=== PATIENT | female | born 1990 | race Caucasian/White ===

== ENCOUNTER 2023-03-18 07:44 | Inpatient (IN) ==
[2023-03-18] MEDS ORDERED: LIDOCAINE 1% LOCAL 20 ML VIAL INFIL PRN (08:31)
[2023-03-18] MEDS ORDERED: OXYTOCIN 30 UNITS/500 ML BAG IV PRN (08:31)
[2023-03-18] MEDS ORDERED: PENICILLIN G POTASSIUM 6 MU in DEXTROSE 5% 250 ML IV STA (08:52)
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
[2023-03-18 09:42] LABS: Hematocrit (blood only) 31.7 % (37.0-47.0); Hemoglobin 10.9 g/dl (12.0-16.0); Mean Corpuscular Hemoglobin 28.8 pg (25.0-34.0); Mean Corpuscular Hgb Conc 34.4 g/dL (32.0-36.0); Mean Corpuscular Volume 83.6 fL (80.0-100.0); Mean Platelet Volume 11.2 fL (9.4-12.4); Platelet Count 223 K/uL (130-400); RDW Coefficient of Variation 12.5 % (11.5-14.5); RDW Standard Deviation 37.6 fL (36.4-46.3); Red Blood Count 3.79 M/uL (4.20-5.40); White Blood Count 15.27 K/ul (4.8-10.8)
[2023-03-18 09:54] LABS: Alanine Aminotransferase 9 U/L (7-52); Albumin Globulin Ratio 1.3 (0.9-2); Albumin Level 3.5 gm/dl (3.4-5.0); Alkaline Phosphatase 175 U/L (34-104); Anion Gap 8 (3-11); Aspartate Aminotransferase 16 U/L (13-39); BUN Creatinine Ratio 15.6 (10-20); Bilirubin,Total 0.4 mg/dl (0.2-1.0); Blood Urea Nitrogen 7 mg/dl (6-23); Carbon Dioxide 24 mmol/L (21-32); Chloride 104 mmol/L (98-107); Creatinine Clr Calc Pharmacy 191.9 ml/min; Est GFR (African American) > 150.0 ml/min; Est GFR (Non-African American) 131.7 ml/min; Globulin 2.8 gm/dl (2.5-4.0); Glucose 91 mg/dl (70-99(Fasting)); Potassium 3.8 mmol/L (3.5-5.1); Sodium 136 mmol/L (136-145); Total Protein 6.3 gm/dl (6.0-8.3)
[2023-03-18] MEDS: miSOPROStoL 25 MCG TAB SL SCH ×3 (09:55→21:05)
[2023-03-18] MEDS: LACTATED RINGER'S 1,000 ML IV PRN (09:55)
[2023-03-18] MEDS: buprenorphine HCL 2 MG SUBL SL SCH ×3 (12:32→21:03)
[2023-03-18] MEDS: PENICILLIN G POTASSIUM 3 MU in DEXTROSE 5% 100 ML IV PRN ×3 (14:17→23:16)
[2023-03-18] MEDS ORDERED: BUTORPHANOL TARTRATE 1 MG/ML VIAL IV PRN (14:31)
[2023-03-18] MEDS ORDERED: ONDANSETRON INJ 2 MG/ML 2 ML VIAL IV PRN (14:31)
[2023-03-18] MEDS ORDERED: CALCIUM CARBONATE 500 MG CHEWABLE TAB PO PRN (14:31)
--- NOTE | 2023-03-18 18:54 | Obstetrical Progress Note ---
Date of Service March 18, 2023 Assessment & Plan Admission and Anticipated Discharge Date Admission Date: March 18, 2023 Subjective Patient is reevaluated She is talking to her family through facetime, and smiling Contractions are somewhat painful but does not need pain meds No LOF/VB +FM FRH categ I VE; cervix 1/ 50%/-3 Received 2 doses of Cytotec She is hungry and desires to eat Continue to monitor Results & Data Vital Signs (Past 12 Hours) Vital Signs Temp Pulse Resp BP 03/18/23 08:03 36.8 C 20 03/18/23 17:59 36.8 C 61 20 03/18/23 17:59 109/64 03/18/23 16:22 20 03/18/23 16:22 36.8 C 20 03/18/23 16:22 60 03/18/23 16:22 108/69 03/18/23 12:24 36.4 C L 78 20 03/18/23 12:24 113/64 03/18/23 09:53 78 03/18/23 09:53 115/70 03/18/23 08:01 113 H 127/84
[2023-03-19] MEDS ORDERED: OXYTOCIN 30 UNITS/500 ML BAG IV PRN ×2 (01:27→11:00)
--- NOTE | 2023-03-19 01:32 | Obstetrical Progress Note ---
Date of Service March 19, 2023 Assessment & Plan Admission and Anticipated Discharge Date Admission Date: March 18, 2023 Subjective Patient is reevaluated She has received 3 doses of SL Cytotec, and due for 4th dose. Still has mild irregular contractions, no LOF/VB +FM's She has been taking 2 mg SL Subutex q 6 hours FHR categ I [place] ctx 2 6-7 min, palpated mild Discussed continuing IOL with either PO Cytotec or Vaginal Cervidil or Esparza balloon with IV Oxytocin Discussed what to expect for each. After long discussion she decided to go with Esparza balloon and Oxytocin Speculum was placed in vagina, cervix was visualized and cleaned with Betadine sticks, Esparza was inserted into cervical os and inflated with 40 ml of sterile water, applied with medial tight with tension Patient tolerated the procedure well Oxytocin per protocol Continue to monitor closely Results & Data Vital Signs (Past 12 Hours) Vital Signs Temp Pulse Resp BP O2 Del Method 03/18/23 19:05 20 03/18/23 19:05 Room Air 03/18/23 23:15 18 03/18/23 23:15 36.8 C 18 03/18/23 23:15 65 03/18/23 23:15 107/65 03/18/23 19:29 18 03/18/23 19:29 36.6 C 18 03/18/23 19:30 81 03/18/23 19:30 96/57 L 03/18/23 17:59 36.8 C 61 20 03/18/23 17:59 109/64 03/18/23 16:22 20 03/18/23 16:22 36.8 C 20 03/18/23 16:22 60 03/18/23 16:22 108/69
[2023-03-19] MEDS: LACTATED RINGER'S 1,000 ML IV PRN ×2 (02:35→07:14)
[2023-03-19] MEDS ORDERED: ePHEDrine sulfate 50 MG/ML AMP ONE ×2 (02:39→08:48)
[2023-03-19] MEDS ORDERED: SODIUM CHLORIDE 0.9% PF INJ 10 ML VIAL ONE ×2 (02:39→08:48)
[2023-03-19] MEDS ORDERED: BUPIVACAINE 0.25% PF 30 ML VIAL ONE ×2 (02:39→08:48)
[2023-03-19] MEDS ORDERED: LIDOCAINE 2%/EPINEPHRINE 1:200,000 20 ML PF ONE ×2 (02:39→08:49)
[2023-03-19] MEDS ORDERED: fentaNYL citrate PF 100 MCG/2 ML VIAL ONE ×2 (02:39→08:48)
[2023-03-19] MEDS ORDERED: fentaNYL 2MCG/ML ROPIVACAINE 1.25MG/ML 100 ML BAG EPI ONE (02:40)
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
[2023-03-19] MEDS: PENICILLIN G POTASSIUM 3 MU in DEXTROSE 5% 100 ML IV PRN ×2 (03:03→07:08)
[2023-03-19] MEDS ORDERED: ONDANSETRON INJ 2 MG/ML 2 ML VIAL IV PRN (03:24)
[2023-03-19] MEDS ORDERED: ePHEDrine sulfate 50 MG/ML AMP IV PRN (03:24)
[2023-03-19] MEDS ORDERED: fentaNYL 2MCG/ML ROPIVACAINE 1.25MG/ML 100 ML BAG EPI PRN (03:24)
[2023-03-19] MEDS ORDERED: NALOXONE HCL 0.4 MG/1 ML VIAL/CARP IV PRN (03:24)
[2023-03-19] MEDS ORDERED: NALOXONE HCL 1 MG in SODIUM CHLORIDE 0.9% 1000ML 1,000 ML IV PRN (03:24)
--- NOTE | 2023-03-19 03:47 | Obstetrical Progress Note ---
Date of Service March 19, 2023 Assessment & Plan Admission and Anticipated Discharge Date Admission Date: March 18, 2023 Subjective Patient got painful and asked for epidural FHR categ I Contractions q2-3 min, pitocin is at 4 miu/min Continue to monitor closely. Results & Data Vital Signs (Past 12 Hours) Vital Signs Temp Pulse Resp BP Pulse Ox O2 Del Method 03/18/23 19:05 20 03/18/23 19:05 Room Air 03/19/23 03:43 71 107/64 03/19/23 03:42 73 97 03/19/23 03:39 69 105/60 03/19/23 03:37 75 97 03/19/23 03:32 98 03/19/23 03:32 72 03/19/23 03:32 78 102/68 03/19/23 03:30 67 100/67 03/19/23 03:28 68 98/66 L 03/19/23 03:27 71 98 03/19/23 03:26 69 102/71 03/19/23 03:24 67 101/72 03/19/23 03:22 68 107/67 100 03/19/23 03:17 85 99 03/19/23 03:12 82 100 03/19/23 03:07 73 93 03/19/23 03:08 73 91 03/19/23 01:55 36.6 C 70 18 104/64 03/18/23 23:15 18 03/18/23 23:15 36.8 C 18 03/18/23 23:15 65 03/18/23 23:15 107/65 03/18/23 19:29 18 03/18/23 19:29 36.6 C 18 03/18/23 19:30 81 03/18/23 19:30 96/57 L 03/18/23 17:59 36.8 C 61 20 03/18/23 17:59 109/64 03/18/23 16:22 20 03/18/23 16:22 36.8 C 20 03/18/23 16:22 60 03/18/23 16:22 108/69
[2023-03-19] MEDS: buprenorphine HCL 2 MG SUBL SL SCH ×4 (08:00→21:34)
[2023-03-19] MEDS ORDERED: NURSING L&D Epidural Breakthrough Pain Update ONE (08:16)
[2023-03-19] MEDS ORDERED: Nursing to Pharmacy Communication SCH (08:30)
--- NOTE | 2023-03-19 09:22 | Communication Note ---
Date of Service: March 19, 2023 asked to reevaluate the patient because of ten out of 10 sharp pain on both sides originating from the back. Pt is only 4 cm. I decided that it is best to replace the epidural because of her early stage labor. Pt has received her buprenorphine. sterile prep/drape/mask gloves. landmark l3/l4 identified. 1.5% lido w/ epi infiltrated 17 gauge touey advanced to WOODY at 6cm. easy catheter thread to 11 cm. neg aspiration. test dose of 2% lido with epi 4cc. neg IV/IT. catheter secured. bolus 100cc fentanyl and 4cc 0.25% bupivicaine. pt comfortable. vss. see nursing record
--- NOTE | 2023-03-19 10:06 | Labor Progress Brief Note ---
Date of Service March 19, 2023 Assessment & Plan Admission and Anticipated Discharge Date Admission Date: March 18, 2023 Physical Exam Genitourinary: Manual OB Exam: + cervical dilation 10 cm, + cervical effacement 100%, + station + 1 and + amniotic fluid clear OB Exam Monitor Tracing: + external FHT monitor used, + external uterine monitor used, + category I and + normal FHT variability will start to push Results & Data Vital Signs (Past 12 Hours) Vital Signs Temp Pulse Resp BP Pulse Ox 03/19/23 07:25 36.8 C 20 03/19/23 10:02 108 H 98 03/19/23 09:57 92 H 97 03/19/23 09:52 89 98 03/19/23 09:51 80 110/66 03/19/23 09:47 81 98 03/19/23 09:42 89 98 03/19/23 09:37 95 H 98 03/19/23 09:33 90 96/56 L 03/19/23 09:32 80 97 03/19/23 09:31 88 96/59 L 03/19/23 09:29 93 H 20 97/57 L 03/19/23 09:27 84 99 03/19/23 09:28 80 103/59 L 03/19/23 09:26 81 103/58 L 03/19/23 09:23 88 03/19/23 09:23 106/60 03/19/23 09:22 90 03/19/23 09:22 83 03/19/23 09:23 78 109/11 L 03/19/23 09:22 94 H 87 L 03/19/23 09:20 100 H 109/70 03/19/23 09:17 73 110/65 98 03/19/23 09:16 76 111/68 03/19/23 09:13 81 111/71 03/19/23 09:12 86 100 03/19/23 09:09 78 114/71 03/19/23 09:07 87 100 03/19/23 08:59 20 03/19/23 08:59 20 03/19/23 09:02 86 97 03/19/23 08:57 69 97 03/19/23 08:54 86 102/67 03/19/23 08:52 87 97 03/19/23 08:47 78 97 03/19/23 08:42 81 97 03/19/23 08:41 70 102/66 03/19/23 08:37 89 98 03/19/23 08:32 71 97 03/19/23 08:29 20 03/19/23 08:29 20 03/19/23 08:27 72 98 03/19/23 08:25 75 105/69 03/19/23 08:22 68 97 03/19/23 07:59 18 03/19/23 07:59 18 03/19/23 08:17 75 98 03/19/23 08:12 73 98 03/19/23 08:11 74 104/64 03/19/23 08:07 80 100 03/19/23 08:02 83 95 03/19/23 07:57 78 100 03/19/23 07:52 80 99 03/19/23 07:47 79 98 03/19/23 07:42 81 97 03/19/23 07:37 69 98 03/19/23 07:29 20 03/19/23 07:29 20 03/19/23 07:32 70 98 03/19/23 07:27 71 97 03/19/23 07:25 67 101/61 03/19/23 07:22 69 97 03/19/23 07:17 77 100 03/19/23 07:12 86 94 03/19/23 06:30 16 03/19/23 06:30 16 03/19/23 07:10 81 107/65 03/19/23 07:00 16 03/19/23 07:00 16 03/19/23 07:07 90 98 03/19/23 07:02 81 97 03/19/23 06:57 81 98 03/19/23 06:54 74 106/60 03/19/23 06:52 73 97 03/19/23 06:47 68 98 03/19/23 06:42 102 H 96 03/19/23 06:40 75 101/55 L 03/19/23 06:37 76 96 03/19/23 06:32 74 96 03/19/23 06:27 77 96 03/19/23 06:25 78 98/54 L 03/19/23 06:22 79 96 03/19/23 06:17 76 97 03/19/23 06:12 78 96 03/19/23 06:10 76 99/57 L 03/19/23 06:07 72 96 03/19/23 06:00 18 03/19/23 06:00 18 03/19/23 06:02 80 97 03/19/23 05:30 16 03/19/23 05:30 16 03/19/23 05:57 73 96 03/19/23 05:54 75 99/58 L 03/19/23 05:52 79 97 03/19/23 05:47 76 97 03/19/23 05:42 73 96 03/19/23 05:40 76 98/54 L 03/19/23 05:37 75 97 03/19/23 05:32 81 97 03/19/23 05:27 77 96 03/19/23 05:24 86 99/63 L 03/19/23 05:22 82 97 03/19/23 05:17 81 97 03/19/23 05:12 85 97 03/19/23 05:09 71 99/63 L 03/19/23 05:00 16 03/19/23 05:00 36.9 C 16 03/19/23 05:07 77 97 03/19/23 05:02 67 98 03/19/23 04:57 69 98 03/19/23 04:55 64 104/72 03/19/23 04:52 64 98 03/19/23 04:47 72 97 03/19/23 04:42 69 98 03/19/23 04:39 81 115/75 03/19/23 04:37 70 96 03/19/23 04:30 16 03/19/23 04:30 16 03/19/23 04:32 61 98 03/19/23 04:27 64 96 03/19/23 04:24 80 102/65 03/19/23 04:22 68 96 03/19/23 04:17 66 96 03/19/23 04:12 73 97 03/19/23 04:07 78 97 03/19/23 04:08 77 105/69 03/19/23 04:05 64 108/66 03/19/23 04:02 68 96 03/19/23 03:59 71 101/62 03/19/23 03:57 63 96 03/19/23 03:53 69 103/63 03/19/23 03:52 72 97 03/19/23 03:47 77 96 03/19/23 03:48 70 107/63 03/19/23 03:43 71 107/64 03/19/23 03:42 73 97 03/19/23 03:39 69 105/60 03/19/23 03:37 75 97 03/19/23 03:32 98 03/19/23 03:32 72 03/19/23 03:32 78 102/68 03/19/23 03:30 67 100/67 03/19/23 03:28 68 98/66 L 03/19/23 03:27 71 98 03/19/23 03:26 69 102/71 03/19/23 03:24 67 101/72 03/19/23 03:22 68 107/67 100 03/19/23 03:17 85 99 03/19/23 03:12 82 100 03/19/23 03:07 73 93 03/19/23 03:08 73 91 03/19/23 01:55 36.6 C 70 18 104/64 03/18/23 23:15 18 03/18/23 23:15 36.8 C 18 03/18/23 23:15 65 03/18/23 23:15 107/65
--- NOTE | 2023-03-19 10:49 | Delivery Summary ---
Vaginal Delivery Summary Date of Service March 19, 2023 Vaginal Delivery Summary Delivery Note live female GAVIN over intact perineum with delayed cord clamping and nuchal cord x2 reduced at time of delivery of head. Apgars 7/8 weight pending. Cord blood obtained followed by spontaneous delivery of intact placenta with 3VC. No tears. EBL 100 ml. Final sponge and instrument count are correct. Mom and baby stable.
[2023-03-19] MEDS ORDERED: BENZOCAINE 20% AER SPR 82.5 GM CAN EXT PRN (11:00)
[2023-03-19] MEDS ORDERED: bisacodyL 10 MG SUPP PR PRN (11:00)
[2023-03-19] MEDS ORDERED: HYDROCORTISONE ACETATE 25 MG SUPP PR PRN (11:00)
[2023-03-19] MEDS ORDERED: DIPHTHERIA/TETANUS/PERTUSSIS 0.5mL SYR/VIAL (Age 7+yrs) IM ONE (11:00)
--- NOTE | 2023-03-19 12:13 | Anesthesia Procedure Note ---
Date of Service March 19, 2023 Anesthesia Post Epidural Note Vital Signs Vital Signs: Temp Pulse Resp BP Pulse Ox O2 Del Method 36.8 C 81 20 102/63 98 Room Air 03/19/23 07:25 03/19/23 12:12 03/19/23 11:27 03/19/23 12:12 03/19/23 10:47 03/18/23 19:05 Pain Intensity Left Abdomen: Pain Intensity: 0 Notes Mental Status: alert / awake / arousable and participated in evaluation Nausea / Vomiting: adequately controlled Pain: adequately controlled Airway Patency, RR, SpO2: stable & adequate BP & HR: stable & adequate Hydration State: stable & adequate Neuraxial Anesthesia: was administered and sensory block is resolving Anesthetic Complications: no major complications apparent and Pt Satisfied with anesthetic care Epidural: Removed without complications and With tip intact
[2023-03-19] MEDS: IBUPROFEN 600 MG TAB PO PRN ×2 (14:38→19:11)
[2023-03-19] MEDS: ACETAMINOPHEN 325 MG TAB PO PRN ×2 (15:16→23:25)
[2023-03-19] MEDS: DOCUSATE SODIUM 100 MG CAP PO SCH (21:34)
[2023-03-20] MEDS: IBUPROFEN 600 MG TAB PO PRN ×5 (02:43→20:51)
[2023-03-20 07:57] LABS: Hematocrit (blood only) 32.8 % (37.0-47.0); Hemoglobin 11.1 g/dl (12.0-16.0); Mean Corpuscular Hemoglobin 28.7 pg (25.0-34.0); Mean Corpuscular Hgb Conc 33.8 g/dL (32.0-36.0); Mean Corpuscular Volume 84.8 fL (80.0-100.0); Mean Platelet Volume 11.1 fL (9.4-12.4); Platelet Count 210 K/uL (130-400); RDW Coefficient of Variation 12.5 % (11.5-14.5); RDW Standard Deviation 37.7 fL (36.4-46.3); Red Blood Count 3.87 M/uL (4.20-5.40); White Blood Count 19.43 K/ul (4.8-10.8)
[2023-03-20] MEDS: buprenorphine HCL 2 MG SUBL SL SCH ×4 (08:07→20:37)
[2023-03-20] MEDS: FERROUS SULFATE 325 MG TAB PO SCH (08:07)
[2023-03-20] MEDS: DOCUSATE SODIUM 100 MG CAP PO SCH ×2 (08:07→20:52)
[2023-03-20] MEDS: PRENATAL VITAMIN 1 TAB PO SCH (08:07)
[2023-03-20] MEDS ORDERED: buprenorphine HCL 8 MG SUBL SL SCH (09:00)
[2023-03-20] MEDS ORDERED: NON-FORMULARY MEDICATION (Prenat.Vits,Cal,Min-Iron-Folic Tablet) PO SCH (09:00)
--- NOTE | 2023-03-20 09:28 | Obstetrical Progress Note ---
Date of Service March 20, 2023 Assessment & Plan (1) Normal course: PPD #1 s/p Subutex pt doing well Anticipate disch tomorrow Subjective Ambulation: ambulating normally Voiding: no voiding problems Passing Gas:: Yes Diet Tolerance:: regular diet Lochia:: Small Feeding Type:: breast feeding Review of Systems All systems reviewed & are unremarkable except as noted in HPI & below Physical Exam Constitutional WD/WN, vitals as above well developed and well nourished Eyes PERRL, conjunctivae normal, anicteric sclerae Neck trachea midline, no thyromegaly Respiratory normal respiratory effort, lungs clear to auscultation Auscultation: no crackles, no rales and no wheezes Cardiovascular RRR, no murmur, no edema Gastrointestinal (Abdomen) normal bowel sounds, soft, nontender, no hepatosplenomegaly Uterus is below umbilicus Musculoskeletal no cyanosis or clubbing, extremities motor strength 5/5 Skin no rashes, warm and dry Neurologic patellar DTR's 2+ bilat, sensation intact Psychiatric A+Ox3, euthymic affect Genitourinary normal external appearance Results & Data Vital Signs (Past 12 Hours) Vital Signs Temp Pulse Resp BP O2 Del Method 03/20/23 07:45 36.4 C L 66 18 101/64 Room Air 03/20/23 03:35 36.9 C 75 18 98/63 L 03/19/23 23:50 36.4 C L 62 18 102/65
[2023-03-20] MEDS: ACETAMINOPHEN 325 MG TAB PO PRN ×2 (11:45→20:51)
[2023-03-20] MEDS ORDERED: bisacodyL 5 MG TABEC PO SCH (20:00)
[2023-03-21] MEDS: IBUPROFEN 600 MG TAB PO PRN ×4 (00:32→16:10)
[2023-03-21] MEDS: ACETAMINOPHEN 325 MG TAB PO PRN (02:49)
[2023-03-21] MEDS: FERROUS SULFATE 325 MG TAB PO SCH (08:02)
[2023-03-21] MEDS: buprenorphine HCL 2 MG SUBL SL SCH ×3 (08:02→16:07)
[2023-03-21] MEDS: PRENATAL VITAMIN 1 TAB PO SCH (08:02)
[2023-03-21] MEDS: DOCUSATE SODIUM 100 MG CAP PO SCH (08:02)
[2023-03-21 09:32] LABS: Hematocrit (blood only) 33.2 % (37.0-47.0); Hemoglobin 11.1 g/dl (12.0-16.0)
--- NOTE | 2023-03-21 10:04 | Obstetrical Progress Note ---
Date of Service March 21, 2023 Assessment & Plan (1) Normal course: PPD #2 pt doing well d/c home with instructions Results & Data Vital Signs (Past 12 Hours) Vital Signs Temp Pulse Resp BP Pulse Ox O2 Del Method 03/21/23 08:45 36.5 C 81 18 102/70 97 Room Air 03/21/23 00:30 36.4 C L 79 18 111/74 98 Room Air
== END 2023-03-21 17:35 | disposition home or self-care (01) | DRG 806 ==
LOC: 4S1 07:44 → 4E2 03-19 15:10

== ENCOUNTER 2024-05-08 07:56 | Inpatient (IN) ==
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
--- OUTSIDE RECORDS SUMMARY | 2024-05-08 08:05 | External Medical Summary | Summary of Care ---
Author Name Unknown Organization [facility] Address [address] [place] [address] Phone [phone] Care Team Providers Care Cnc Mechanic Name Role Phone Unavailable Primary Care Provider Unavailabl e Encounter Details Date Type Department Care Team (Late st Contact Info) Description 04/28/2024 Orders Only Pharmacy, [employer] [address], [place] [id number] Ann Marie Allen, [facility] [address] [place] [address] Allergies No known active allergiesdocumented as of this encounter (statuses as of 05/03/2024) Medications Medication Sig Dispensed Refills Start Date [...] at bedtime. 30 Tablet 5 03/07/2024 Active documented as of this encounter (statuses as of 05/03/2024) Active Problems Problem Noted Date Diagnosed Date [...] Medicine- pt to call them. 02/25/2024 Uzma Burris RN 02/25/2024 Lack of housing- has to [...] or questions 04/28/2024 Radha Blake RN 04/28/2024 Antepartum anemia complicating 024 Overview: Hgb 11.0 at 28 wks Referral for IV iron placed, pt agreeable per OB protocol. 03/07 - Patient still has not taken PO iron or seen BM. Able to chart picker prescription at this time. Will recheck levels [...] as of this encounter (statuses as of 05/03/2024) Resolved Problems Problem Noted Date Diagnosed Date [...] sub utex maintenance, antepartum 09/01/2022 02/25/2024 Overview: [facility] Last Assessment & Plan: Briefly reviewed subutex risks including FGR and ANTONETTE. Cameron desires to participate in Eat, Sleep, Console if able and will evaluate distance from her home to [facility]. Also advised that she enquire at the OB office whether something similar is available at [facility] where she initially intended to deliver (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 Tobacco use complicating 09/01/2022 02/25/2024 documented as of this encounter (statuses as of 05/03/2024) Immunizations Name Administration Dates Next Due TDAP [...] money to get more. Never true 01/26/2024 [place] Depression Scale Answer Date Recorded [place] Depression Scale Total 4 04/21/2024 The thought [...] Care Team (Late st Contact Info) Description 05/04/2024 8:00 AM EDT Pharmacy Pharmacy, [employer] [address] [place] [address] Clinic, [place] [address] [place] [address] 05/04/2024 10:30 AM EDT Office Visit Gynecology/Obstetric s Duncan Murphy [address] [facility] [place] [address] Backer, MARY Vázquez [address] [place] [address] Nurse [facility] [address] [place] [address] 05/04/2024 1:30 PM EDT Hem/Onc Treatment Hematology/Oncology [address], [address] [phone] Fatuma, Chair 8 Hem Onc [address] [address] 05/05/2024 2:00 PM EDT Hem/Onc Treatment Hematology/Oncology [address], [address] [phone] Fatuma, Chair 9 Hem Onc [place] [address] [place] [address] 05/30/2024 9:45 AM EDT Telemedicine Gynecology/Obstetric [facility] [address] [place] [facility] [place] [address] Paz Michelle PA-C [address] [place] [address] [place] [address] 06/19/2024 10:30 AM EDT Office Visit Gynecology/Obstetric [facility] [address] [place] [address] Joanne Arambula CRNP [address] [place] [address] Health Maintenance Due Date Last Done Comments [...]
--- OUTSIDE RECORDS SUMMARY | 2024-05-08 08:05 | External Medical Summary | Summary of Care ---
Author Name Unknown Organization [facility] Address [address] [place] [address] Phone [phone] Care Team Providers Care Planimeter Operator Name Role Phone Unavailable Primary Care Provider Unavailabl e Reason for Visit * Reason Comments IV Therapy Venofer Encounter Details Date Type Department Care Team (Latest Contact Info) Description 05/03/2024 9:15 AM EDT Hem/Onc Treatment Hematology/Oncology Treatment, [place] [address] [place] [address] Fatuma, Chair 8 Hem Onc [facility] [address] [place] [address] Iron deficiency anemia, unspecified iron deficiency anemia type* Allergies No known active allergiesdocumented as of [...] PO iron or seen BM. Able to pharmacy picking tech prescription at this time. Will recheck levels [...] will evaluate distance from her home to [facility]. Also advised that she enquire at the OB office whether something similar is available at [facility] where she initially intended to deliver (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 Tobacco use complicating 09/01/2022 02/25/2024 documented as of this encounter (statuses as of 05/03/2024) Immunizations Name Administration Dates Next Due TDAP (age 10 and older)(Boostrix) 01/01/2023 documented as of this encounter Social History Tobacco Use Types Packs/Day Years Used Date Smoking Tobacco: Every Day Smokeless Tobacco: Never Tobacco Cessation:Ready to Q uit: Not Asked; Counseling Given: Not Answered Alcohol Use Standard Drinks/Week Comments Not Currently [...] money to get more. Never true 01/26/2024 [place] Depression Scale Answer Date Recorded [place] Depression Scale Total 4 04/21/2024 The thought [...] on file documented as of this encounter Last Filed Vital Signs Vital Sign Reading Time Taken Comments Blood Pressure 113/74 05/03/2024 10:13 AM EDT Pulse 85 05/03/2024 10:13 AM EDT Temperature 36.9 C (98.4 F) 05/03/2024 10:13 AM E DT Respiratory Rate 16 05/03/2024 10:13 AM EDT Oxygen Saturation 95% 05/03/2024 10:13 AM EDT Inhaled Oxygen Concentration - - Weight - - Height - - Body Mass Index - - documented in this encounter Nursing Notes * Uzma Avila LPN - 05/03/2024 12:09 PM EDT 1145: Pt tolerated Venofer infusion well. PIV removed intact. Pt to return to clinic tomorrow. Discharged in stable condition. * Shavonne Caban LPN - 05/03/2024 10:13 AM EDT Patient arrived Chair 1 for IV therapy Venofer. Vital signs are stable. IV access successful at theleft cephalic vein. IV line flushed with ease; IV fluids connected and infusing. Call grigsby within reach. documented in this encounter Plan of Treatment Upcoming Encounters Date Type Department Care Team (Late st Contact Info) Description 05/04/2024 10:30 AM EDT Office Visit Gynecology/Obstetric s Duncan Murphy [address] [place] [address] Backer, MARY Vázquez [address] [place] [address] Nurse [facility] [address] [place] [address] 05/04/2024 1:30 PM EDT Hem/Onc Treatment Hematology/Oncology Treatment, [address] [place] [phone] Fatuma, Chair 8 Hem Onc [address] [place] [address] [place] [address] 05/05/2024 2:00 PM EDT Hem/Onc Treatment Hematology/Oncology Treatment, [address], [place] [phone] Fatuma, Chair 9 Hem Onc [address] [place], [place] [address] [address] 05/30/2024 9:45 AM EDT Telemedicine Gynecology/Obstetric s Duncan Murphy [address] [place] [address] Paz Michelle PA-C [address] [place] [address] [place] [address] 06/19/2024 10:30 AM EDT Office Visit Gynecology/Obstetric s Duncan Murphy [address] [place] [address] Backer, JoanneMARY Llanos [address] [place] [address] Health Maintenance Due Date Last Done Comments [...] Not on filedocumented as of this encounter Visit Diagnoses Diagnosis Iron deficiency anemia, unspecified iron deficiency anemia type- Primary documented in this encounter Administered Medications Active Administered Medications - up to 3 most recent administrations Medication Order MAR Action Action Date Dose Rate Site diphenhydrAMINE (Benadryl) inj 50 mg 50 mg, IV Push, ONCE PRN Other, Hypersensitivity Reaction, Starting on 05/03/24 at 0951, Until Diane 05/04/24 at 0950, For 24 hours EPINEPHrine 1 MG/ML inj 0.3 mg 0.3 mg, Intramuscular, ONCE PRN Other, Hypersensitivity Reaction or Anaphylaxis, Starting on 05/03/24 at 0951, Until Diane 05/04/24 at 0950, For 24 hours hEParin 100 UNIT/ML Lock Flush inj 500 Units 500 Units (5 mL), IV Lock, PRN Other, IV Flush, Starting on Wed05/03/24 at 0951, Until Diane 05/04/24 at 0950, For 24 hours, Do not flush if lock, PICC, or central line not in place; IV infusing or unable to flush. Hydrocortisone Sod Suc (PF) (Solu-Cortef) inj 100 mg 100 mg, IV Push, ONCE PRN Other, Hypersensitivity Reaction, Starting on Wed05/03/24 at 0951, Until Diane 05/04/24 at 0950, For 24 hours NSS infusion 500 mL, Intravenous, at 50 mL/hr, CONTINUOUS, Starting on Wed05/03/24 at 1100, Until Wed05/03/24 at 2059 Start Infusion 05/03/2024 10:03 AM EDT 500 mL 50 mL/hr oxygen GAS Inhalation, OXYGEN, First dose on Wed05/03/24 at 1030, Until Discontinued, Device/Managed by: Low Flow Device, Goal SPO2 (%): 91-95, Starting Device: Nasal Cannula, Initial Flow Rate (LPM): 2, Lowest Support: Nasal Cannula: Flow 0-6 LPM. Titrate up/down by 1 LPM., Higher Support: Non-Rebreather (NRB) Mask: Minimum of 10 LPM. Titrate to maintain bag inflation., Titration Interval: Q2 minutes and as needed., Notify Provider: For sudden DECREASE in resting SPO2 to less than 85% and when escalating delivery device., Wean patient off Oxygen when the oxygen saturation is greater than or equal to 93% sodium chloride 0.9 % flush central line 10 mL 10 mL, IV Push, PRN Other, IV Flush, Starting on Wed05/03/24 at 0951, Until Diane 05/04/24 at 0950, For 24 hours, Do not flush if lock, PICC, or central line not in place; IV infusing or unable to flush. Inactive Administered Medications - up to 3 most recent administrations Medication Order MAR Action Action Date Dose Rate Site Iron Sucrose (Venofer) 300 mg in NSS 250 mL ivpb 300 mg, IV Piggyback, ONCE, 1 dose, On Wed05/03/24 at 1130, Administer over 90 Minutes Start Infusion 05/03/2024 10:11 AM EDT 300 mg 180 mL/hr documented in this encounter
--- OUTSIDE RECORDS SUMMARY | 2024-05-08 08:05 | External Medical Summary | Summary of Care ---
Author Name Unknown Organization [facility] Address [address] [place] [address] Phone [phone] Care Team Providers Care Allocations Clerk Name Role Phone Unavailable Primary Care Provider Unavailabl e Reason for Visit * Reason Onset Date Comments No Show 05/04/2024 Encounter Details Date Type Department Care Team (Late st Contact Info) Description 05/04/2024 Telephone Gynecology/Obstetrics [facility] [address] [facility] [place] [address] Donna Ochoa MD [address] [facility] [place] [address] No Show Allergies No known active allergiesdocumented as of this encounter (statuses as of 05/04/2024) Medications Medication Sig Dispensed Refills Start Date [...] as of this encounter (statuses as of 05/04/2024) Active Problems Problem Noted Date Diagnosed Date [...] PO iron or seen BM. Able to apple picking supervisor prescription at this time. Will recheck levels [...] as of this encounter (statuses as of 05/04/2024) Resolved Problems Problem Noted Date Diagnosed Date [...] sub utex maintenance, antepartum 09/01/2022 02/25/2024 [facility] Last Assessment & Plan: Briefly reviewed subutex risks including FGR and ANTONETTE. Cameron desires to participate in Eat, Sleep, Console if able and will evaluate distance from her home to [place]. Also advised that she enquire at the OB office whether something similar is available at [facility] where she initially intended to deliver (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 Tobacco use complicating 09/01/2022 02/25/2024 documented as of this encounter (statuses as of 05/04/2024) Immunizations Name Administration Dates Next Due TDAP [...] money to get more. Never true 01/26/2024 [place] Depression Scale Answer Date Recorded [place] Depression Scale Total 4 04/21/2024 The thought [...] on file documented as of this encounter Miscellaneous Notes * Telephone Encounter - Chantale Sánchez OSA - 05/04/2024 2:57 PM EDT The number in chart is unava So my g sent * Telephone Encounter - Uzma Avila LPN - 05/04/2024 2:46 PM EDT Pt did not show for Venofer infusion again. Pt is to have her baby in a few days and needs to have the iron prior to arrival. Scheduling: Can you please reach out to see if patient would like to reschedule? Thank you. NS: AZAEL. Please adjust beacon. documented in this encounter Plan of Treatment Upcoming Encounters Date Type Department Care Team (Late st Contact Info) Description 05/05/2024 2:00 PM EDT Hem/Onc Treatment Hematology/Oncology Treatment, [place] [address] [place] [address] Fatuma, Chair 9 Hem Onc [place] [address] [place] [address] 05/30/2024 9:45 AM EDT Telemedicine Gynecology/Obstetrics [facility] [address] [place] [address] Paz Michelle PA-C [address] [facility] [place] [address] 06/19/2024 10:30 AM EDT Office Visit Gynecology/Obstetrics [facility] [address] [place] [address] Joanne Arambula CRNP [address] [place] [address] Health Maintenance Due Date Last Done Comments [...]
--- OUTSIDE RECORDS SUMMARY | 2024-05-08 08:05 | External Medical Summary | Summary of Care ---
Author Name Unknown Organization [facility] Address [address] [place] [address] Phone [phone] Care Team Providers Care Machine Slat Basket Maker Name Role Phone Unavailable Primary Care Provider Unavailabl e Encounter Details Date Type Department Care Team (Late st Contact Info) Description 04/28/2024 Orders Only Pharmacy, [facility] [address], [place] [id number] Ann Marie Allen, [facility] [address] [place] [address] Allergies No known active allergiesdocumented [...] PO iron or seen BM. Able to fruit picker prescription at this time. Will recheck [...] sub utex maintenance, antepartum 09/01/2022 02/25/2024 Overview: [facility] Family Medicine Last Assessment & Plan: Briefly reviewed subutex risks including FGR and ANTONETTE. Cameron desires to participate in Eat, Sleep, Console if able and will evaluate distance from her home to [facility] Also advised that she enquire at the OB office whether something similar is available at [facility] where she initially intended to deliver (or [...] money to get more. Never true 01/26/2024 [place] Depression Scale Answer Date Recorded [place] Depression Scale Total 4 04/21/2024 The thought [...] Description 05/04/2024 8:00 AM EDT Pharmacy Pharmacy, [facility] [address] [place] [address] Clinic, [place] [address] [place] [address] 05/04/2024 10:30 AM EDT Office Visit Gynecology/Obstetric s Duncan Murphy [address] [facility] [place] [address] Backer, MARY Vázquez [address] [place] [address] Nurse Jeffrey Healthy Beginnings Return [facility] [address] [facility] [place] [address] 05/04/2024 1:30 PM EDT Hem/Onc Treatment Hematology/Oncology [address], [address] [id number] Fatuma, Chair 8 Hem Onc [address] [address] 05/05/2024 2:00 PM EDT Hem/Onc Treatment Hematology/[address]cology [address], [address] [phone] Fatuma, Chair 9 Hem Onc Scenery [address] [place] [address] 05/30/2024 9:45 AM EDT Telemedicine Gynecology/Obstetric [facility] [address] [place] [facility] [place] [address] Paz Michelle PA-C [address] [place] [address] [place] [address] 06/19/2024 10:30 AM EDT Office Visit Gynecology/Obstetric [facility] [address] [place] [address] Joanne Arambula CRNP [address] [place] [address] Health Maintenance Due Date Last Done Comments [...]
--- OUTSIDE RECORDS SUMMARY | 2024-05-08 08:05 | External Medical Summary | Summary of Care ---
Author Name Unknown Organization [facility] Address [address] [place] [address] Phone [phone] Care Team Providers Care Spool Fixer Name Role Phone Unavailable Primary Care Provider Unavailabl e Reason for Visit * Reason Onset Date Comments Anemia Follow-Up 05/05/2024 Encounter Details Date Type Department Care Team (Late st Contact Info) Description 05/04/2024 8:00 AM EDT Pharmacy Pharmacy, [facility] [address], [place] [id number] Clinic, [facility] [address] [place], [place] [id number] Antepartum anemia complicating * Allergies No known active allergiesdocumented as of [...] PO iron or seen BM. Able to pickle sorter prescription at this time. Will recheck levels [...] sub utex maintenance, antepartum 09/01/2022 02/25/2024 [facility]: [facility] Last Assessment & Plan: Briefly reviewed subutex risks including FGR and ANTONETTE. Cameron desires to participate in Eat, Sleep, Console if able and will evaluate distance from her home to [facility]. Also advised that she enquire at the OB office whether something similar is available at [facility] where she initially intended to deliver (or [...] money to get more. Never true 01/26/2024 [place] Depression Scale Answer Date Recorded [place] Depression Scale Total 4 04/21/2024 The thought [...] on file documented as of this encounter Progress Notes * Martha Farrell RPh - 05/05/2024 2:34 PM EDT Patient received first dose of Venofer 300 mg x 3 repletion series on 05/03 and appeared to have tolerated it without issue. Next scheduled: 05/05 Scheduled to be completed: TBA GA: 39w6d Estimated Date of Delivery: 05/06/24 Follow-up after completion of series to ensure all doses are administered prior to delivery. Anemia Clinic will continue to follow. Thank you for allowing us to participate in the care of thispatient. Thanks, Martha Farrell RPh Clinical Pharmacist [facility]emia [facility] (P: [phone]) 05/05/2024 2:35 PM documented in this encounter Plan of Treatment Upcoming Encounters Date Type Department Care Team (Late st Contact Info) Description 05/10/2024 9:45 AM EDT Pharmacy Pharmacy, [facility] [address] [place] [address] Clinic, [facility] [address] [place] [address] 05/30/2024 9:45 AM EDT Telemedicine Gynecology/Obstetrics [facility] [place] [address] Paz Michelle PA-C [address] [facility] [place] [address] 06/19/2024 10:30 AM EDT Office Visit Gynecology/Obstetrics [facility] [place] [address] Joanne Arambula CRNP [address] [facility] [place] [address] Health Maintenance Due Date Last Done Comments [...] as of this encounter Visit Diagnoses Diagnosis Antepartum anemia complicating - Primary Anemia, antepartum documented in this encounter
--- OUTSIDE RECORDS SUMMARY | 2024-05-08 08:06 | External Medical Summary | Summary of Care ---
Author Name Unknown Organization [facility] Address [address] [place] [address] Phone [phone] Care Team Providers Care Neck Skewer Name Role Phone Unavailable Primary Care Provider Unavailabl e Encounter Details Date Type Department Care Team (Late st Contact Info) Description 04/28/2024 Orders Only Gynecology/Obstetrics [facility] 132 [facility] [place] [address] Paz Michelle PA-C [address] [facility] [place] [address] Iron deficiency anemia, unspecified iron deficiency anemia type* Allergies No known active allergiesdocumented as of this encounter (statuses as of 04/28/2024) Medications Medication Sig Dispensed Refills Start Date [...] as of this encounter (statuses as of 04/28/2024) Active Problems Problem Noted Date Diagnosed Date [...] PO iron or seen BM. Able to pick pulling machine operator prescription at this time. Will recheck [...] as of this encounter (statuses as of 04/28/2024) Resolved Problems Problem Noted Date Diagnosed Date [...] will evaluate distance from her home to [facility]. Also advised that she enquire at the OB office whether something similar is available at [facility] where she initially intended to deliver (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 Tobacco use complicating 09/01/2022 02/25/2024 documented as of this encounter (statuses as of 04/28/2024) Immunizations Name Administration Dates Next Due TDAP [...] money to get more. Never true 01/26/2024 [place] Depression Scale Answer Date Recorded [place] Depression Scale Total 4 04/21/2024 The thought [...] Team (Late st Contact Info) Description 04/28/2024 4:00 PM EDT Pharmacy Pharmacy, [address] [address] Clinic, [facility] [address] [place] [address] Antepartum anemia complicating * 05/02/2024 8:00 AM EDT Pharmacy Pharmacy, [address] [address] Clinic, An[facility] [address] [place] [address] 06/19/2024 10:30 AM EDT Office Visit Gynecology/Obstetric s [facility] [address] [place] [address] BackerJoanne CRNP [address] [place] [address] Health Maintenance Due Date Last Done Comments Pneumococcal Vaccine: Pediatrics (0 to 5 Years) [...] Antepartum anemia complicating - Primary Anemia, antepartum Iron deficiency anemia, unspecified iron deficiency anemia type- Primary documented in this encounter
--- OUTSIDE RECORDS SUMMARY | 2024-05-08 08:06 | External Medical Summary | Summary of Care ---
Author Name Unknown Organization [facility] Address [address] [place] [address] Phone [phone] Care Team Providers Care Account Support Manager Name Role Phone Unavailable Primary Care Provider Unavailabl e Reason for Referral * (Within 3 days (urgent)) Specialty Diagnoses / Procedures Referred By Contkg t Referred To Contact Paz Michelle PA-C [address] [facility] [place] [address] Referral ID Status Reason Start Date Expiration Date Visits Re quested Visits Authorized Question Answer Referral Priority Within 3 days (urgent) Where should this appointment be scheduled? Gely Comments Urgent referral placed. Hgb 10.4 and patient is 38w2d . Encounter Details Date Type Department Care Team (Late st Contact Info) Description 04/24/2024 Orders Only Laboratory, [facility] 132 [facility] [place] [phone] Paz Michelle PA-C [address] [facility] [place] [address] Antepartum anemia complicating * Allergies No known active allergiesdocumented as of this encounter (statuses as of 04/24/2024) Medications Medication Sig Dispensed Refills Start Date End Date Status Buprenorphine HCl 8 MG Sublingual Tablet Sublingual (Subutex) PLACE 1 TABLET (8 MG) DAILY ALLOW TO DISSOLVE FULLY UNDER TONGUE, DO NOT CHEW, DO NOT SWALLOW 04/20/2022 Active Gummies 0.18-25 MG Oral Tablet Chewable Take by mouth . Acti ve Nicotine 7 MG/24HR Transdermal Patch 24 Hour (Nicoderm CQ)Indications:Pregn luis complicated by tobacco use in first trimester One 7 mg patch daily for 2 weeks; Remove old patch daily; and then stop. 14 Patch 1 09/01/2022 Active Additional Information Patient not taking.Reported on 04/05/2024 Amphetamine-Dextroam phetamine 20 MG Oral Tablet (Adderall) take 1 [...] Iron-Vitamin C 65-125 MG Oral Tablet (Vitron C)Indications:Antepa rtum anemia complicating Take 1 Tablet by mouth in the morning and 1 Tablet at noon and 1 Tablet in the evening. 90 Tablet 1 02/17/2024 Active Docusate Sodium 100 MG Oral Capsule (Colace) Take 1 Capsule by mouth 2 times a day as needed for Constipation. 30 Capsule 1 02/17/2024 Active Additional Information Patient not taking.Reported on 02/25/2024 Famotidine 20 MG Oral Tablet (Pepcid)Indications: Heartburn during in third trimester Take 1 Tablet by mouth every night at bedtime. 30 Tablet 5 03/07/2024 Active documented as of this encounter (statuses as of 04/24/2024) Active Problems Problem Noted Date Diagnosed Date High-risk 02/25/2024 complicated by subutex maintenance, an [...] or questions 04/05/2024 Radha Blake RN 04/05/2024 Antepartum anemia complicating 024 Overview: Hgb 11.0 at 28 wks Referral for IV iron placed, pt agreeable per OB protocol. 03/07 - Patient still has not taken PO iron or seen BM. Able to diamond picker prescription at this time. Will recheck [...] as of this encounter (statuses as of 04/24/2024) Resolved Problems Problem Noted Date Diagnosed Date [...] will evaluate distance from her home to [facility]. Also advised that she enquire at the OB office whether something similar is available at [facility] where she initially intended to deliver (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 Tobacco use complicating 09/01/2022 02/25/2024 documented as of this encounter (statuses as of 04/24/2024) Immunizations Name Administration Dates Next Due TDAP [...] money to get more. Never true 01/26/2024 [place] Depression Scale Answer Date Recorded [place] Depression Scale Total 4 04/21/2024 The thought [...] Care Team (Late st Contact Info) Description 04/27/2024 10:45 AM EDT Office Visit Gynecology/Obstetrics Duncan Murphy [address] [place] [address] Madhu Aguayo MD [address] [place] [address] Nurse Jeffrey [facility] [address] [place] [address] Scheduled Referrals Name Type Priority Associated Diagnoses Orde r Schedule BLOOD MANAGEMENT REFERRAL Referral Within 3 days (urgent) Antepartum anemia complicating Ordered: 04/24/2024 Health Maintenance Due Date Last Done Comments [...]
--- OUTSIDE RECORDS SUMMARY | 2024-05-08 08:06 | External Medical Summary | Summary of Care ---
Author Name Unknown Organization [facility] Address [address] [place] [address] Phone [phone] Care Team Providers Care Leasing Property Manager Name Role Phone Unavailable Primary Care Provider Unavailabl e Encounter Details Date Type Department Care Team (Late st Contact Info) Description 04/21/2024 Telephone [facility]necology[facility]stetrics [facility] [address] [facility] [place] [address] Donna Zhang PA-C [address] [place] [address] Allergies No known active allergiesdocumented as of this encounter (statuses as of 04/21/2024) Medications Medication Sig Dispensed Refills Start Date [...] as of this encounter (statuses as of 04/21/2024) Active Problems Problem Noted Date Diagnosed Date [...] any current needs or questions 04/05/2024 Radha Blake, RN 04/05/2024 Antepartum anemia complicating 024 Overview: Hgb 11.0 at 28 wks Referral for IV iron placed, pt agreeable per OB protocol. 03/07 - Patient still has not taken PO iron or seen BM. Able to bead picker prescription at this time. Will recheck levels in 4 weeks around 04/04. Last Assessment & Plan: Blood management recommended PO iron first if Hgb <11 with recheck referral back to them. Estimated Date of Delivery Comme nts Yes 05/06/2024 Based on Ultraso und documented as of this encounter (statuses as of 04/21/2024) Resolved Problems Problem Noted Date Diagnosed Date [...] office whether something similar is available at [facility] where she initially intended to deliver (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 Tobacco use complicating 09/01/2022 02/25/2024 documented as of this encounter (statuses as of 04/21/2024) Immunizations Name Administration Dates Next Due TDAP [...] money to get more. Never true 01/26/2024 [place] Depression Scale Answer Date Recorded [place] Depression Scale Total 4 04/21/2024 The thought [...] encounter Miscellaneous Notes * Telephone Encounter - Radha Blake RN - 04/21/2024 4:56 PM EDT Scheduled IOL for post dates at [facility] for 05/08. Please make provider aware. documented in this encounter Plan of Treatment Upcoming Encounters Date Type Department Care Team (Late st Contact Info) Description 04/27/2024 10:45 AM EDT Office Visit Gynecology/Obstetrics Duncan Murphy [address] [place] [address] Madhu Aguayo MD [address] [place] [address] Nurse Jeffrey Healthy [facility] Return [facility] [address] [place] [address] Health Maintenance Due Date Last Done Comments [...]
--- OUTSIDE RECORDS SUMMARY | 2024-05-08 08:06 | External Medical Summary ---
Author Name Unknown Address Unknown Organization K01:[facility] - [address] [address] Laboratory Report Ordering Provider Test Date Status MIHIR CHAUDHARY 04/21/2024 11:47:12 Final Observation Date Value Abnormality Reference (Units ) Status Retic, % (auto) 04/21/2024 11:47:12 2.31 Above high normal 0.80-1.90 (%) Final Reticulocytes, Absolute 04/21/2024 11:47:12 86.2 31.3-100.1 (K/uL) Final Reticulocyte fraction, immature 04/21/2024 11:47:12 31.3 Above high normal 2.5-20.6 (%) Final Reticulocyte HGB 04/21/2024 11:47:12 29.9 29.7-37.4 (pg) Final Performing Location [facility] - [address] [place] [address]
--- OUTSIDE RECORDS SUMMARY | 2024-05-08 08:06 | External Medical Summary | Summary of Care ---
Author Name Unknown Organization [facility] Address [address] [place] [address] Phone [phone] Care Team Providers Care Blueprint Machine Operator Name Role Phone Unavailable Primary Care Provider Unavailabl e Reason for Visit * Reason Comments Return Visit Encounter Details Date Type Department Care Team (Late st Contact Info) Description 04/21/2024 10:45 AM EDT Office Visit Gynecology/Obstetri silvia Murphy [address] [place] [address] Donna Zhang PA-C [address] [place] [address] Nurse Lyndsey Murphy Beginnings Return [facility] [address] [place] [address] High-risk in third trimester*; Antepartum anemia complicating ; complicated by subutex maintenance, antepartum (HCC); Tobacco smoking affecting in third trimester; Short interval between pregnancies complicating , antepartum; Medication exposure during first trimester of ; Late care; Health counseling; Vaginal itching Allergies No known active allergiesdocumented as of [...] current needs or questions 04/05/2024 Radha Blake TAMMIE 04/05/2024 Antepartum anemia complicating 024 Overview: Hgb 11.0 at 28 wks Referral for IV iron placed, pt agreeable per OB protocol. 03/07 - Patient still has not taken PO iron or seen BM. Able to picker and packer prescription at this time. Will recheck levels [...] sub utex maintenance, antepartum 09/01/2022 02/25/2024 [facility] Last Assessment & Plan: Briefly reviewed subutex risks including FGR and ANTONETTE. Cameron desires to participate in Eat, Sleep, Console if able and will evaluate distance from her home to [facility]. Also advised that she enquire at the OB office whether something similar is available at [facility] where she initially intended to deliver (or [...] money to get more. Never true 01/26/2024 [place] Depression Scale Answer Date Recorded [place] Depression Scale Total 4 04/21/2024 The thought [...] Sign Reading Time Taken Comments Blood Pressure - - Pulse - - Temperature - - Respiratory Rate - - Oxygen Saturation - - Inhaled Oxygen Concentration - - Weight 82.2 kg (181 lb 3.2 oz) 04/21/2024 11:15 AM EDT Height 170.2 cm (5' 7") 04/21/2024 11:15 AM EDT Body Mass Index 28.38 04/21/2024 11:15 AM EDT documented in this encounter Progress Notes * Donna Zhang PA-C - 04/21/2024 11:19 AM EDT 37w6d Due for GBS, collected. No showed last two appointments. Increased in pelvic pain/pressure today. Reports on L side radiating down L thigh. Denies contractions, VB. Baby is active. Lost mucous plug 3 days ago. Has been experiencing small drops of what she thinks is pee over last week. No large gush of fluid. Wears pad and pad is not soaked. Vaginal/vulvar irritation over last week. Has been taking bubble baths, was also in pool over weekend. Would like cervical check. Discussed need to repeat CBC, she was agreeable to stopping at lab. She was advised to take Vitron C TID. Pt states has been taking BID, sometimes QID. Pt states was upsetting her stomach taking TID. SSE: External and vaginal anatomy normal, mild erythema of vulva, No significant vulvar lesions, Nosignificant vaginal discharge, no pooling, Cervix normal or purulent discharge, cervix visually closed, no pooling at cervical os and no blood in vaginal vault. Nitrazine test negative. No lof with valsalva. Vaginosis collected. BME: cl/th/hi Would like to schedule postdate IOL. Will schedule. Discussed likely d/t soaps with bathing as well as swimming. Low suspicion given exam, cultures pending. Can try 1 day Monistat. RTC in 1 week Donna Zhang PA-C documented in this encounter Nursing Notes * Radha Blake RN - 04/21/2024 11:15 AM EDT Patient here for JAILYN 37w6d GBS today + FM Having pelvic pain today Radha Blake RN documented in this encounter Plan of Treatment Pending Results Name Type Priority Associated Diagnoses Date /Time GROUP B STREP CULTURE/PCR Lab Routine High-risk in third trimester 04/21/2024 11:44 AM EDT VAGINOSIS PANEL, PCR Lab Routine Vaginal itching 04/21/2024 11:44 AM EDT Scheduled Orders Name Type Priority Associated Diagnoses Orde r Schedule GROUP B STREP CULTURE/PCR Lab Routine High-risk in third trimester Expected: 04/21/2024, Expires: 04/21/2025 VAGINOSIS PANEL, PCR Lab Routine Vaginal itching Expected: 04/21/2024, Expires: 04/21/2025 Health Maintenance Due Date Last Done Comments [...] as of this encounter Visit Diagnoses Diagnosis High-risk in third trimester- Primary Antepartum anemia complicating Anemia, antepartum complicated by subutex maintenance, antepartum (HCC) Tobacco smoking affecting in third trimester Short interval between pregnancies complicating , antepartum Supervision of other high-risk Medication exposure during first trimester of Supervision of other high-risk Late care Insufficient care Health counseling Other specified counseling Vaginal itching Pruritus of genital organs documented in this encounter
--- OUTSIDE RECORDS SUMMARY | 2024-05-08 08:06 | External Medical Summary | Summary of Care ---
Author Name Unknown Organization [facility] Address [address] [place] [address] Phone [phone] Care Team Providers Care Janitor Name Role Phone Unavailable Primary Care Provider Unavailabl e Reason for Visit * Reason Comments Return Visit Encounter Details Date Type Department Care Team (Late st Contact Info) Description 04/21/2024 10:45 AM EDT Office Visit Gynecology/Obstetri silvia Murphy [address] [employer] [place] [address] Donna Zhang PA-C [address] [place] [address] Nurse Lyndsey Murphy Beginnings Return [facility] [address] [employer] [place] [address] High-risk in third trimester*; Antepartum anemia complicating [...] iron or seen BM. Able to pick up and delivery driver prescription at this time. Will recheck levels [...] sub utex maintenance, antepartum 09/01/2022 02/25/2024 [facility] Last Assessment & Plan: Briefly reviewed subutex risks including FGR and ANTONETTE. Cameron desires to participate in Eat, Sleep, Console if able and will evaluate distance from her home to [facility]. Also advised that she enquire at the OB office whether something similar is available at [facility] where she initially intended to deliver [...] money to get more. Never true 01/26/2024 [place] Depression Scale Answer Date Recorded [place] Depression Scale Total 4 04/21/2024 The thought [...] Team (Late st Contact Info) Description 04/21/2024 11:50 AM EDT [facility] [address] [place] [phone] Ovidio Murphy [address] [place] [address] Arrived Pending Results Name Type Priority Associated Diagnoses [...]
--- OUTSIDE RECORDS SUMMARY | 2024-05-08 08:06 | External Medical Summary | Summary of Care ---
Author Name Unknown Organization [facility] Address [address] [place] [address] Phone [phone] Care Team Providers Care Plumber Pipe Fitting Name Role Phone Unavailable Primary Care Provider Unavailabl e Reason for Visit * Reason Comments Blood Management Program Encounter Details Date Type Department Care Team (Late st Contact Info) Description 04/24/2024 Documentation Patient Blood Management, [place] [address] [place] [address] Brown Mcclellan RN Allergies No known active allergiesdocumented as of this encounter (statuses as of 04/25/2024) Medications Medication Sig Dispensed Refills Start Date [...] as of this encounter (statuses as of 04/25/2024) Active Problems Problem Noted Date Diagnosed Date [...] On subutex but not in therapy. Using adderal Maternal Medicine- pt to call them. 02/25/2024 [...] PO iron or seen BM. Able to moss picker prescription at this time. Will recheck [...] as of this encounter (statuses as of 04/25/2024) Resolved Problems Problem Noted Date Diagnosed Date [...] will evaluate distance from her home to [facility]. 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 Tobacco use complicating 09/01/2022 02/25/2024 documented as of this encounter (statuses as of 04/25/2024) Immunizations Name Administration Dates Next Due TDAP [...] money to get more. Never true 01/26/2024 [place] Depression Scale Answer Date Recorded [place] Depression Scale Total 4 04/21/2024 The thought [...] as of this encounter Progress Notes * Brown Mcclellan RN - 04/24/2024 12:21 PM EDT REFERRAL - Patient Blood Management Name: Cameron Albright REQUESTING SERVICE: [facility] OB REASON FOR REFERRAL: new evaluation outpatient, anemia in pregnnacy GELY: 05/06/24 Anemia Evaluation: Latest Reference Range & Units 04/21/24 11:47 HGB 12.0 - 15.3 g/dL 10.4 (L) HCT 36.0 - 45.2 % 32.4 (L) Iron 33 - 151 ug/dL 37 Iron Binding Capacity 250 - 425 ug/dL 507 (H) Transferrin Saturation Percent 15 - 55 % 7 (L) Ferritin 13 - 150 ng/mL 10 (L) Immature Reticuloctye Fraction 2.5 - 20.6 % 31.3 (H) Reticulocyte Hemoglobin 29.7 - 37.4 pg 29.9 Absolute Reticulocyte 31.3 - 100.1 K/uL 86.2 Current Patient Medications: Medications that may impair hemostasis: none Medications that may impair iron absorption: pepcid Patient Refused Blood Transfusion? (e.g. Adventism): no Possible Contributing Factors: iron deficiency Treatment Recommendations: IV iron per OB MTM guidelines. 04/24 - Called patient, can't leave voicemail. Myg Sent. 04/25 - Cameron returned myG, agreeable to IV iron at [place] Will submit OB MTM. Thank you for allowing Blood Management to participate in the care of this patient. documented in this encounter Plan of Treatment Upcoming Encounters Date Type Department Care Team (Late st Contact Info) Description 04/27/2024 10:45 AM EDT Office Visit Gynecology/Obstetrics Duncan Jeffrey [address] [place] [address] Madhu Aguayo MD [address] [place] [address] Nurse Jeffrey [facility] Return [facility] [address] [place] [address] Health Maintenance Due Date Last Done Comments [...]
--- OUTSIDE RECORDS SUMMARY | 2024-05-08 08:06 | External Medical Summary ---
Author Name Unknown Address Unknown Organization K01:[facility] [place] [facility] [address] [place] [address] Laboratory Report Ordering Provider Test Date Status MIHIR CHAUDHARY 04/21/2024 11:47:12 Final Observation Date Value Abnormality Reference (Units ) Status Creatinine 04/21/2024 11:47:12 0.5 0.5-1.0 (mg/dL) Final Glomerular filtration rate/1.73 sq M.predicted [Volume Rate/Area] in Serum, Plasma or Blood by Creatinine-based formula (CKD-EPI) 04/21/2024 11:47:12 >90 >=60 (mL/min) Final eGFR is calculated based on the CKD-EPI 2020 equation Performing Location [facility] [place] [address] [place] [address]
--- OUTSIDE RECORDS SUMMARY | 2024-05-08 08:06 | External Medical Summary | Summary of Care ---
Author Name Unknown Organization [facility] Address [address] [place] [address] Phone [phone] Care Team Providers Care World History Teacher Name Role Phone Unavailable Primary Care Provider Unavailabl e Reason for Visit * Reason Onset Date Comments Anemia Follow-Up 04/25/2024 * Evaluate & Treat - Unlimited Visits (Within 3 days (urgent)) - Authorized Specialty Diagnoses / Procedures Referred By Contkg t Referred To Contact Pharmacist / Pharmacy Diagnoses EVELIA (iron deficiency anemia) Paz Michelle PA-C [address] [place] [id number] Referral ID Status Reason Start Date Expiration Date Visits Requested Visits Authorized [id number] Authorized Specialty Services Required 04/25/2024 99 99 Encounter Details Date Type Department Care Team (Late st Contact Info) Description 04/25/2024 8:00 AM EDT Pharmacy Pharmacy, [place] [address] [place], [place] [phone] Clinic, Anemia [address] [place], [place] [id number] Antepartum anemia complicating * Allergies No known [...] 02/25/2024 nutrition Due date letter given for [place] 02/25/2024 Uzma Burris RN 02/25/2024 Problem Action [...] PO iron or seen BM. Able to pickling solution maker prescription at this time. Will recheck levels [...] home to [facility]. 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 Never true 01/26/2024 [place] Depression Scale Answer Date Recorded [place] Depression Scale Total 4 04/21/2024 The thought [...] as of this encounter Progress Notes * Ann Marie Allen, [facility] - 04/25/2024 1:23 PM EDT Patient Phone Numbers Patient referred by Paz Michelle PA-C, for evaluation of anemia by the Anemia Clinic. Called patient to introduce role/clinic and to review labs from 04/21/24. No answer, unable to leaveVM. Message stated: "The person you are calling cannot accept calls at this time." MyG message alsosent to patient. Hgb: 10.4 g/dL TSAT: 7 % Ferritin: 10 ng/mL GA: 38w3d Estimated Date of Delivery: 05/06/24 Hgb is below target range for the 3rd trimester. Iron studies below target range. Per chart review, patient is taking Vitron C - 1 tab PO TID. Oral iron replenishment inadequate. Patient qualifies for IV iron repletion. Tentative Plan: Venofer 300 mg IV weekly x 3 doses at [facility]. Orders will need to be placed and routed to appropriate parties if patient agreeable to intervention. Will follow-up again on 04/26/24 if no return call sooner. Anemia Clinic will continue to follow. Thank you for allowing us to participate in the care of thispatient. Ann Marie Allen, PharmD, [facility] Clinical Pharmacist [facility] Anemia Clinic (P: [phone]) 04/25/2024 1:23 PM documented in this encounter Plan of Treatment Upcoming Encounters Date Type Department Care Team (Late st Contact Info) Description 04/26/2024 4:00 PM EDT Pharmacy Pharmacy, [address] [address] Clinic, Anemia [address] [place] [address] 04/27/2024 10:45 AM EDT Office Visit Gynecology/Obstetrics [facility] [place] [address] Madhu Aguayo MD [address] [place] [address] Nurse Jeffrey [facility]nings Return [facility] [address] [facility] [address] Scheduled Referrals Name Type Priority Associated Diagnoses Orde r Schedule PHARMACIST MEDS THERAPY MGMT REFERRAL OP Referral Within 3 days (urgent) EVELIA (iron deficiency anemia) Ordered: 04/25/2024 Health Maintenance Due Date Last Done Comments [...]
--- OUTSIDE RECORDS SUMMARY | 2024-05-08 08:06 | External Medical Summary | Summary of Care ---
Author Name Unknown Organization [facility] Address [address] [place] [address] Phone [phone] Care Team Providers Care Coat Joiner Lockstitch Name Role Phone Unavailable Primary Care Provider Unavailabl e Reason for Visit * Reason Onset Date Comments Anemia Follow-Up 05/02/2024 Encounter Details Date Type Department Care Team (Late st Contact Info) Description 05/02/2024 8:00 AM EDT Pharmacy Pharmacy, [place] [address] [place], [place] [phone] Clinic, Anemia [address] [place], [place] [phone] Antepartum anemia complicating * Allergies No known active allergiesdocumented as of this encounter (statuses as of 05/02/2024) Medications Medication Sig Dispensed Refills Start Date [...] as of this encounter (statuses as of 05/02/2024) Active Problems Problem Noted Date Diagnosed Date [...] iron or seen BM. Able to pickling tank operator prescription at this time. Will recheck levels in 4 weeks around 14. 04/21 - Hgb 10.4. BM referral replaced 3 days urgent as she is 38w2d. Last Assessment & Plan: Blood management recommended PO iron first if Hgb <11 with recheck referral back to them. Estimated Date of Delivery Comme nts Yes 05/06/2024 Based on Ultraso und documented as of this encounter (statuses as of 05/02/2024) Resolved Problems Problem Noted Date Diagnosed Date [...] will evaluate distance from her home to [facility]. 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 Tobacco use complicating 09/01/2022 02/25/2024 documented as of this encounter (statuses as of 05/02/2024) Immunizations Name Administration Dates Next Due TDAP [...] money to get more. Never true 01/26/2024 [place] Depression Scale Answer Date Recorded [place] Depression Scale Total 4 04/21/2024 The thought [...] this encounter Progress Notes * Ann Marie Allen RPh - 05/02/2024 1:34 PM EDT Patient scheduled to receive first dose of Venofer 300 mg x 3 repletion series on 05/02/24 (appointment on 05/01/24 canceled). Next scheduled: TBD Scheduled to be completed: TBD GA: 39w3d Estimated Date of Delivery: 05/06/24 Anemia Clinic will continue to follow. Thank you for allowing us to participate in the care of thispatient. Ann Marie Allen, PharmD, [facility] Clinical Pharmacist [facility] Anemia Clinic (P: [phone]) 05/02/2024 1:34 PM documented in this encounter Plan of Treatment Upcoming Encounters Date Type Department Care Team (Late st Contact Info) Description 05/02/2024 2:30 PM EDT Hem/Onc Treatment Hematology/Oncology Treatment, [place] [address] [place] [phone] Fatuma, Chair 4 Hem Onc [place] [address] [place] [address] 05/03/2024 8:00 AM EDT Pharmacy Pharmacy, [place] [address] [place] [address] Clinic, [facility] [address] [place] [address] 05/04/2024 10:30 AM EDT Office Visit Gynecology/Obstetric s [place] [address] [place] [facility] [place] [address] Joanne Arambula CRNP [address] [place] [address] Nurse Jeffrey [facility] Return [facility] [address] [place] [address] 06/19/2024 10:30 AM EDT Office Visit Gynecology/Obstetric s Duncan Murphy [address] [place] [address] Joanne Arambula CRNP [address] [place] [address] Health Maintenance Due Date Last Done Comments [...]
--- OUTSIDE RECORDS SUMMARY | 2024-05-08 08:06 | External Medical Summary | Summary of Care ---
Author Name Unknown Organization [facility] Address [address] [place] [address] Phone [phone] Care Team Providers Care Vp Ad Products And Planning Name Role Phone Unavailable Primary Care Provider Unavailabl e Encounter Details Date Type Department Care Team (Late st Contact Info) Description 04/21/2024 Telephone Gynecology/Obstetrics [facility] [address] [facility] [place] [address] Donna Zhang PA-C [address] [place] [address] Allergies No known active allergiesdocumented as of [...] will evaluate distance from her home to [facility]. 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 Never true 01/26/2024 [place] Depression Scale Answer Date Recorded [place] Depression Scale Total 4 04/21/2024 The thought [...] encounter Miscellaneous Notes * Telephone Encounter - Jazmni Silva OSA - 04/25/2024 10:10 AM EDT In OR book and EPIC * Telephone Encounter - Radha Blake RN - 04/21/2024 4:56 PM EDT Scheduled IOL for post dates at [facility] for 05/08. Please make provider aware. documented in this encounter Plan of Treatment Upcoming Encounters Date Type Department Care Team (Late st Contact Info) Description 04/27/2024 10:45 AM EDT Office Visit Gynecology/Obstetrics Duncan Murphy [address] [place] [address] Madhu Aguayo MD [address] [place] [address] Nurse Jeffrey Healthy [facility]nings Return [facility] [address] [place] [address] Health Maintenance Due Date Last Done Comments [...]
--- OUTSIDE RECORDS SUMMARY | 2024-05-08 08:06 | External Medical Summary | Summary of Care ---
Author Name Unknown Organization [facility] Address [address] [place] [address] Phone [phone] Care Team Providers Care National Account Executive Name Role Phone Unavailable Primary Care Provider Unavailabl e Reason for Visit * Reason Comments Outpatient Testing Encounter Details Date Type Department Care Team (Late st Contact Info) Description 04/21/2024 11:50 AM EDT Laboratory Laboratory, [facility] [address] [place] [phone] [facility] [address] [place] [address] Antepartum anemia complicating Allergies No known active allergiesdocumented as of [...] current needs or questions 04/05/2024 Radha Blake, TAMMIE 04/05/2024 Antepartum anemia complicating 024 Overview: [...] evaluate distance from her home to [facility]. 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 Never true 01/26/2024 [place] Depression Scale Answer Date Recorded [place] Depression Scale Total 4 04/21/2024 The thought [...] as of this encounter Plan of Treatment Pending Results Name Type Priority Associated Diagnoses Date /Time CBC WITH WBC DIFFERENTIAL AND ANEMIA REFLEX WORKUP Lab Routine Antepartum anemia complicating 04/21/2024 11:47 AM EDT ANEMIA CBC Lab Routine Antepartum anemia complicating 04/21/2024 11:47 AM EDT DIFFERENTIAL, AUTOMATED Lab Routine Antepartum anemia complicating 04/21/2024 11:47 AM EDT ANEMIA REFLEX CHEMISTRY HOLD Lab Routine Antepartum anemia complicating 04/21/2024 11:47 AM EDT Health Maintenance Due Date Last Done Comments [...] encounter Visit Diagnoses Diagnosis Antepartum anemia complicating Anemia, antepartum documented in this encounter
--- OUTSIDE RECORDS SUMMARY | 2024-05-08 08:06 | External Medical Summary | Summary of Care ---
Author Name Unknown Organization [facility] Address [address] [place] [address] Phone [phone] Care Team Providers Care Statistical Assistant Name Role Phone Unavailable Primary Care Provider Unavailabl e Reason for Visit * Reason Onset Date Comments Anemia Follow-Up 04/28/2024 Encounter Details Date Type Department Care Team (Late st Contact Info) Description 04/28/2024 4:00 PM EDT Pharmacy Pharmacy, [place] [address] [place], [place] [phone] Clinic, Anemia [address] [place], [place] [phone] Antepartum anemia complicating * Allergies No known [...] PO iron or seen BM. Able to milk pickup truck driver prescription at this time. Will recheck levels in 4 weeks around 14. 5/31 - Hgb 10.4. BM referral replaced 3 [...] will evaluate distance from her home to [facility]. 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 Never true 01/26/2024 [place] Depression Scale Answer Date Recorded [place] Depression Scale Total 4 04/21/2024 The thought [...] Notes * Ann Marie Allen RPh - 04/28/2024 1:42 PM EDT Patient referred by aPz Michelle PA-C, for evaluation of anemia by the Anemia Clinic. Review of labs from 04/21/24. Hgb: 10.4 g/dL TSAT: 7 % Ferritin: 10 ng/mL GA: 38w6d Estimated Date of Delivery: 05/06/24 Hgb is below target range for the 3rd trimester. Iron studies below target range. Per chart review, patient is taking Vitron C - 1 tab PO TID. Oral iron replenishment inadequate. Patient qualifies for IV iron repletion. Plan: Received myG message from patient that her phone is not currently working. Per PBM notes, patient agreeable to IV iron at [facility]. Orders placed for Venofer 300 mg IV weekly x 3 doses. Patient requesting to be scheduled on Wednesday after 2PM. Unsure of availability - will inform Cindy Shoemaker at [facility]. Anemia Clinic will continue to follow. Thank you for allowing us to participate in the care of thispatient. Ann Marie Allen, PharmD, [facility] Clinical Pharmacist [facility] Anemia Clinic (P: [phone]) 04/28/2024 1:45 PM documented in this encounter Plan of Treatment Upcoming Encounters Date Type Department Care Team (Late st Contact Info) Description 05/02/2024 8:00 AM EDT Pharmacy Pharmacy, [place] [address] [place] [address] Clinic, Anemia [address] [place] [address] 06/19/2024 10:30 AM EDT Office Visit Gynecology/Obstetrics Duncan Murphy [address] [place] [address] [place], MARY Vázquez [address] [place] [address] Health Maintenance Due Date Last Done Comments [...]
--- OUTSIDE RECORDS SUMMARY | 2024-05-08 08:06 | External Medical Summary | Summary of Care ---
Author Name Unknown Organization [facility] Address [address] [place] [address] Phone [phone] Care Team Providers Care Operations And Maintenance Technican Name Role Phone Unavailable Primary Care Provider Unavailabl e Encounter Details Date Type Department Care Team (Late st Contact Info) Description 04/24/2024 Telephone Gynecology/Obstetrics [facility] 132 [facility] [place] [address] Paz Michelle PA-C [address] [facility] [place] [address] Allergies No known active allergiesdocumented as of [...] PO iron or seen BM. Able to pepper picker prescription at this time. Will recheck [...] sub utex maintenance, antepartum 09/01/2022 02/25/2024 [facility] Last Assessment & Plan: Briefly reviewed subutex risks including FGR and ANTONETTE. Cameron desires to participate in Eat, Sleep, Console if able and will evaluate distance from her home to [facility]. 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 Never true 01/26/2024 [place] Depression Scale Answer Date Recorded [place] Depression Scale Total 4 04/21/2024 The thought [...] encounter Miscellaneous Notes * Telephone Encounter - Urmila Buckley LPN - 04/24/2024 11:15 AM EDT Call placed to patient. No answer, busy signal * Telephone Encounter - Urmila Buckley LPN - 04/24/2024 10:51 AM EDT ----- Message from Paz Michelle sent at 04/24/2024 8:59 AM EDT ----- Please let patient know her repeat CBC is continuing to show anemia. Per protocol, I have placed a BM referral at 3 days urgent as she is 38w2d. Encourage her to continue taking her PO iron in the meantime. Thanks! Paz Michelle PA-C documented in this encounter Plan of Treatment Upcoming Encounters Date Type Department Care Team (Late st Contact Info) Description 04/26/2024 4:00 PM EDT Pharmacy Pharmacy, [place] [address] [place] [address] Clinic, Anemia [address] [place] [address] 04/27/2024 10:45 AM EDT Office Visit Gynecology/Obstetrics [address] [place] [address] Madhu Aguayo MD [address] [place] [address] Nurse Jeffrey Healthy Beginnings Return [facility] [address] [place] [address] Health Maintenance Due Date Last Done Comments [...]
--- OUTSIDE RECORDS SUMMARY | 2024-05-08 08:06 | External Medical Summary ---
Author Name Unknown Address Unknown Organization K01:[facility] [place] [address] [facility] [address] Laboratory Report Ordering Provider Test Date Status MIHIR CHAUDHARY 04/21/2024 11:47:12 Final Observation Date Value Abnormality Reference (Units ) Status SYNC LEUKOCYTES IN BLOOD BY AUTOMATED COUNT 04/21/2024 11:47:12 14.97 Above high normal 4.00-10.80 (K/uL) Final Segs 04/21/2024 11:47:12 78.2 Above high normal 40.0-75.0 (%) Final Lymphs % 04/21/2024 11:47:12 12.0 Below low normal 18.0-42.0 (%) Final Monos 04/21/2024 11:47:12 7.9 1.0-11.0 (%) Final Eosinophils 04/21/2024 11:47:12 0.9 0.0-6.0 (%) Final Basos 04/21/2024 11:47:12 0.3 0.0-2.0 (%) Final Immature Granulocyte, Percent 04/21/2024 11:47:12 0.7 0.0-2.0 (%) Final Absolute Segs 04/21/2024 11:47:12 11.69 Above high normal 1.80-7.70 (K/uL) Final Lymphs, absolute 04/21/2024 11:47:12 1.80 1.00-4.80 (K/ul) Final Monos, Abs 04/21/2024 11:47:12 1.19 Above high normal 0.00-1.10 (K/uL) Final Eos, Abs 04/21/2024 11:47:12 0.14 0.00-0.70 (K/uL) Final Basos, Abs 04/21/2024 11:47:12 0.04 0.00-0.20 (K/uL) Final Immature Granulocytes, Number 04/21/2024 11:47:12 0.11 0.00-0.20 (K/uL) Final Performing Location [facility] [place] - [facility] [place] [address]
--- OUTSIDE RECORDS SUMMARY | 2024-05-08 08:06 | External Medical Summary | Summary of Care ---
Author Name Unknown Organization [facility] Address [address] [place] [address] Phone [phone] Care Team Providers Care Mandarin Chinese Teacher Name Role Phone Unavailable Primary Care Provider Unavailabl e Reason for Visit * Reason Comments Return Visit Encounter Details Date Type Department Care Team (Late st Contact Info) Description 04/28/2024 10:45 AM EDT Office Visit Gynecology/Obstetri silvia Murphy [address] [place] [address] Donna Zhang PA-C [address] [place] [address] Nurse Lyndsey Murphy [facility] [address] [place] [address] High-risk in third trimester*; Antepartum anemia complicating ; complicated by subutex maintenance, antepartum (HCC); Tobacco smoking affecting in third trimester; Short interval between pregnancies complicating , antepartum; Medication exposure during first trimester of ; Late care; Health counseling Allergies No known active allergiesdocumented as of [...] any current needs or questions 04/28/2024 Radha Blake, RN 04/28/2024 Antepartum anemia complicating 024 Overview: Hgb 11.0 at 28 wks Referral for IV iron placed, pt agreeable per OB protocol. 03/07 - Patient still has not taken PO iron or seen BM. Able to pick up operator prescription at this time. Will recheck [...] will evaluate distance from her home to [facility]. 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 Never true 01/26/2024 [place] Depression Scale Answer Date Recorded [place] Depression Scale Total 4 04/21/2024 The thought [...] Sign Reading Time Taken Comments Blood Pressure 120/70 04/28/2024 11:00 AM EDT Pulse - - Temperature - - Respiratory Rate - - Oxygen Saturation - - Inhaled Oxygen Concentration - - Weight 83 kg (183 lb) 04/28/2024 11:00 AM EDT Height 170.2 cm (5' 7") 04/28/2024 11:00 AM EDT Body Mass Index 28.66 04/28/2024 11:00 AM EDT documented in this encounter Progress Notes * Donna Zhang PA-C - 04/28/2024 12:43 PM EDT 38w6d Denies VB, LOF. Reports BH contractions. Pos fm. Declines cervical check. Reviewed IV iron and importance given hemoglobin and term. She was given phone number for blood management as she was having trouble reaching them. States she will call today to schedule IV iron. RTC in 1 week Donna Zhang PA-C * Honey Arboleda LPN - 04/28/2024 11:12 AM EDT 38w6d Pt needs iv infusion I reached out to anemia clinic to see when we can get her appt. Pt also had daughter in office with her and daughter fell and hit her face in waiting room. WE provided a ice pack and top lip looked swollen and no longer had active bleeding. Teeth looked intact. Ilet pt and fob know if they have concerns they need to reach put to peds to be evaluated I told them this multiple times to reach out to peds for child to be evaluated. documented in this encounter Nursing Notes * Radha Blake RN - 04/28/2024 11:10 AM EDT Patient seen by [facility] Fine Artist. Patient denies any questions or concerns.Encouraged patient tos schedule her PPVs today at checkout. documented in this encounter Plan of Treatment Upcoming Encounters Date Type Department Care Team (Late st Contact Info) Description 04/28/2024 4:00 PM EDT Pharmacy Pharmacy, [place] [address] [place] [address] Clinic, Anemia [address] [place] [address] 06/19/2024 10:30 AM EDT Office Visit Gynecology/Obstetrics [facility] [address] [place] [address] BackerJoanne CRNP [address] [place] [address] Health Maintenance Due Date Last Done Comments [...] Insufficient care Health counseling Other specified counseling documented in this encounter
--- OUTSIDE RECORDS SUMMARY | 2024-05-08 08:06 | External Medical Summary | Summary of Care ---
Author Name Unknown Organization [facility] Address [address] [place] [address] Phone [phone] Care Team Providers Care Baker Helper Name Role Phone Unavailable Primary Care Provider Unavailabl e Encounter Details Date Type Department Care Team (Late st Contact Info) Description 04/24/2024 Telephone Gynecology/Obstetrics [facility] [address] [facility] [place] [address] Paz Michelle PA-C [address] [facility] [place] [address] Allergies No known active [...] PO iron or seen BM. Able to cotton picking machine operator prescription at this time. Will [...] sub utex maintenance, antepartum 09/01/2022 02/25/2024 Overview: [facility] Last Assessment & Plan: Briefly reviewed subutex risks including FGR and ANTONETTE. Cameron desires to participate in Eat, Sleep, Console if able and will evaluate distance from her home to [facility]. 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 Never true 01/26/2024 [place] Depression Scale Answer Date Recorded [place] Depression Scale Total 4 04/21/2024 The thought [...] Gynecology/Obstetrics Duncan Murphy [address] [place] [address] Madhu Aguayo MD [address] [place] [address] Murphy, Nurse [facility] [address] [place] [address] Health Maintenance Due Date Last Done Comments [...]
--- OUTSIDE RECORDS SUMMARY | 2024-05-08 08:06 | External Medical Summary | Summary of Care ---
Author Name Unknown Organization [facility] Address [address] [place] [address] Phone [phone] Care Team Providers Care Humanities And Languages Professor Name Role Phone Unavailable Primary Care Provider Unavailabl e Encounter Details Date Type Department Care Team (Late st Contact Info) Description 04/28/2024 Orders Only Pharmacy, [place] [address] [place], [place] [id number] Ann Marie Allen, [facility] [address] [place] [address] Allergies No known active allergiesdocumented [...] iron or seen BM. Able to pickle cutter prescription at this time. Will recheck levels [...] sub utex maintenance, antepartum 09/01/2022 02/25/2024 Overview: [facility] Family Medicine Last Assessment & Plan: Briefly reviewed subutex risks including FGR and ANTONETTE. Cameron desires to participate in Eat, Sleep, Console if able and will evaluate distance from her home to [facility]. 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 Never true 01/26/2024 [place] Depression Scale Answer Date Recorded [place] Depression Scale Total 4 04/21/2024 The thought [...] Description 04/28/2024 4:00 PM EDT Pharmacy Pharmacy, [address] [address] Clinic, Anemia [address] [place] [address] Antepartum anemia complicating * 05/02/2024 8:00 AM EDT Pharmacy Pharmacy, [address] [address] Clinic, Anemia [address] [place] [address] 06/19/2024 10:30 AM EDT Office Visit Gynecology/Obstetric s Duncan Murphy [address] [place] [address] BackerJoanne CRNP [address] [place] [address] Health Maintenance Due Date Last Done Comments Pneumococcal Vaccine: Pediatrics (0 to 5 Years) and At-Risk Patients (6 to 64 Years) (1 of 2 - PCV) 1995 Depression Screening 2001 Hepatitis B (1 of 3 - 19+ 3-dose series) 2008 HPV/Co-Test 2019 COVID-19 Vaccine (2022-2 4 season) 2023 09/11/2021, 08/14/2021, 11/22/2020 Influenza [...]
--- OUTSIDE RECORDS SUMMARY | 2024-05-08 08:06 | External Medical Summary | Summary of Care ---
Author Name Unknown Organization [facility] Address [address] [place] [address] Phone [phone] Care Team Providers Care Cement Grinding Mill Operator Name Role Phone Unavailable Primary Care Provider Unavailabl e Reason for Visit * Reason Onset Date Comments Anemia Follow-Up 04/26/2024 Encounter Details Date Type Department Care Team (Late st Contact Info) Description 04/26/2024 4:00 PM EDT Pharmacy Pharmacy, [place] [address] [place], [place] [id number] Clinic, Anemia [address] [place] [address] Antepartum anemia complicating * Allergies No known active allergiesdocumented as of this encounter (statuses as of 04/26/2024) Medications Medication Sig Dispensed Refills Start Date [...] as of this encounter (statuses as of 04/26/2024) Active Problems Problem Noted Date Diagnosed Date [...] PO iron or seen BM. Able to miner pick prescription at this time. Will recheck levels [...] as of this encounter (statuses as of 04/26/2024) Resolved Problems Problem Noted Date Diagnosed Date [...] sub utex maintenance, antepartum 09/01/2022 02/25/2024 [facility]: [facility] Last Assessment & Plan: Briefly reviewed subutex risks including FGR and ANTONETTE. Cameron desires to participate in Eat, Sleep, Console if able and will evaluate distance from her home to [facility]. Also advised that she enquire at the OB office whether something similar is available at [facility] where she initially intended to deliver (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 Tobacco use complicating 09/01/2022 02/25/2024 documented as of this encounter (statuses as of 04/26/2024) Immunizations Name Administration Dates Next Due TDAP [...] money to get more. Never true 01/26/2024 [place] Depression Scale Answer Date Recorded [place] Depression Scale Total 4 04/21/2024 The thought [...] of this encounter Progress Notes * Martha Farrell, [facility] - 04/26/2024 1:01 PM EDT Patient Phone Numbers Spoke to patient's mom and she gave me the number [phone] (patient's daughter) [id number]. Patient referred by Paz Michelle PA-C, for evaluation of anemia by the Anemia Clinic. Called patient to introduce role/clinic and to review labs from 04/21/24. No answer, unable to leaveVM. Message stated: "The person you are calling cannot accept calls at this time." MyG message alsosent to patient. Hgb: 10.4 g/dL TSAT: 7 % Ferritin: 10 ng/mL GA: 38w4d Estimated Date of Delivery: 05/06/24 Hgb is below target range for the 3rd trimester. Iron studies below target range. Per chart review, patient is taking Vitron C - 1 tab PO TID. Oral iron replenishment inadequate. Patient qualifies for IV iron repletion. Tentative Plan: Venofer 300 mg IV weekly x 3 doses at [facility]. Orders will need to be placed and routed to appropriate parties if patient agreeable to intervention. Will follow-up again on 04/27/24 if no return call sooner. Anemia Clinic will continue to follow. Thank you for allowing us to participate in the care of thispatient. Thanks, Martha Farrell [facility] Clinical Pharmacist documented in this encounter Plan of Treatment Upcoming Encounters Date Type Department Care Team (Late st Contact Info) Description 04/27/2024 10:45 AM EDT Office Visit Gynecology/Obstetrics Duncan Murphy [address] [place] [address] Madhu Aguayo MD [address] [place] [address] Nurse Jeffrey [facility] [address] [place] [address] 04/27/2024 4:00 PM EDT Pharmacy Pharmacy, [address] [id number] [facility], [address] [id number] Health Maintenance Due Date Last Done Comments [...]
--- OUTSIDE RECORDS SUMMARY | 2024-05-08 08:07 | External Medical Summary | Summary of Care ---
Author Name Unknown Organization [facility] Address [address] [place] [address] Phone [phone] Care Team Providers Care Business Broker Name Role Phone Unavailable Primary Care Provider Unavailabl e Reason for Visit * Reason Comments Return Visit Encounter Details Date Type Department Care Team (Late st Contact Info) Description 02/25/2024 3:30 PM EDT Office Visit Gynecology/Obstetric s Duncan Murphy [email or web address] [place] [address] Donna Zhang PA-C [email or web address] [place] [address] Supervision of high-risk , unspecified trimester* Allergies No known active allergiesdocumented as of this encounter (statuses as of 02/28/2024) Medications Medication Sig Dispensed Refills Start Date End Date Status Buprenorphine HCl 8 MG Sublingual Tablet Sublingual (Subutex) PLACE 1 TABLET (8 MG) DAILY ALLOW TO DISSOLVE FULLY UNDER TONGUE, DO NOT CHEW, DO NOT SWALLOW 0 04/20/2022 Active Gummies 0.18-25 MG Oral Tablet Chewable Take by mouth . 0 Acti ve Nicotine 7 MG/24HR Transdermal Patch 24 Hour (Nicoderm CQ)Indications:Pregn luis complicated by tobacco use in first trimester One 7 mg patch daily for 2 weeks; Remove old patch daily; and then stop. 14 Patch 1 09/01/2022 Active Amphetamine-Dextroam phetamine 20 MG Oral Tablet (Adderall) take 1 tablet by mouth daily AT 2PM 0 09/01/2022 Active Breast Pump Use as directed 1 Each 0 01/01/2023 Active Breast Pump Pump as needed 1 Each 0 02/03/2023 Active Ondansetron 4 MG Oral Tablet Disintegrating (Zofran) Place 1 Tablet on tongue every 8 hours as needed for Nausea. dissolve on tongue. 20 Tablet 0 02/10/2024 Active Iron-Vitamin C 65-125 MG Oral Tablet (Vitron C)Indications:Antepa rtum anemia complicating Take 1 Tablet by mouth in the morning and 1 Tablet at noon and 1 Tablet in the evening. 90 Tablet 1 02/17/2024 Active Additional Information Patient not taking.Reported on 02/25/2024 Docusate Sodium 100 MG Oral Capsule (Colace) Take 1 Capsule by mouth 2 times a day as needed for Constipation. 30 Capsule 1 02/17/2024 Active Additional Information Patient not taking.Reported on 02/25/2024 documented as of this encounter (statuses as of 02/28/2024) Active Problems Problem Noted Date Diagnosed Date [...] for WIC 02/25/2024 Uzma Burris RN 02/25/2024 Antepartum anemia complicating 024 Overview: Hgb 11.0 at 28 wks Referral for IV iron placed, pt agreeable per OB protocol. Last Assessment & Plan: Blood management recommended PO iron first if Hgb <11 with recheck referral back to them. Estimated Date of Delivery Comme nts Yes 05/06/2024 Based on Ultraso und documented as of this encounter (statuses as of 02/28/2024) Resolved Problems Problem Noted Date Diagnosed Date [...] sub utex maintenance, antepartum 09/01/2022 02/25/2024 Overview: [facility] Last Assessment & Plan: Briefly reviewed subutex risks including FGR and ANTONETTE. Cameron desires to participate in Eat, Sleep, Console if able and will evaluate distance from her home to [facility]. Also advised that she enquire at the OB office whether something similar is available at [facility] where she initially intended to deliver (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 Tobacco use complicating 09/01/2022 02/25/2024 documented as of this encounter (statuses as of 02/28/2024) Immunizations Name Administration Dates Next Due TDAP [...] money to get more. Never true 01/26/2024 [place] Depression Scale Answer Date Recorded [place] Depression Scale Total 0 01/26/2024 The thought of harming myself has occurred to me . Never 01/26/2024 Estimated Date of Delivery Comme nts Yes [...] Sign Reading Time Taken Comments Blood Pressure 116/70 02/25/2024 3:37 PM EDT Pulse - - Temperature - - Respiratory Rate - - Oxygen Saturation - - Inhaled Oxygen Concentration - - Weight 77.6 kg (171 lb) 02/25/2024 3:37 PM EDT Height - - Body Mass Index 26.78 02/11/2024 12:10 PM EDT documented in this encounter Progress Notes * Donna Zhang PA-C - 02/25/2024 4:36 PM EDT 29w6d Has not picked up Cipriano Yung from pharmacy, pt states she will. Recently changed insurance. Meeting with [facility] nurse today. Phone fell in water, unable to hear anything able to read messages. States did get message regarding scheduling with MFM secondary to high risk . Pt states has new phone coming in mail now, plans to call and schedule. Aware of recommendation to be seen and still agreeable to seeing them. Hoping to schedule at [facility] location, but understand if need to go to another location. Will hold onany further ultrasound through our clinic. Missed anatomy seen. Wants tubal . Discussed scheduling following vaginal delivery with MD to discuss surgery further. Denies VB, LOF, contractions. Pos fm. RTC in 2 weeks Donna Zhang PA-C * Uzma Burris RN - 02/25/2024 3:43 PM EDT + heartburn has tried tums only Has not started iron and vit c. Plans to do so. documented in this encounter Nursing Notes * Uzma Burris RN - 02/25/2024 4:24 PM EDT have you cut down with your smoking yes have you quit no have you seen a patient observation assistant no have you seen a social staff worker no are you receiving counseling no have you received dental care during your no are you enrolled in WIC no do you receive food stamps or epstein assistance no are you having problems with depression, receiving counseling or taking prescribed medications no have you had little interest in doing things, or have you been bothered by feeling down, depressed,or hopeless no documented in this encounter Plan of Treatment Upcoming Encounters Date Type Department Care Team (Late st Contact Info) Description 03/07/2024 8:30 AM EDT Office Visit Gynecology/Obstetrics Duncan Murphy [address] [place] [address] Joanne Arambula CRNP [address] [place] [address] Health Maintenance Due Date Last Done Comments [...] as of this encounter Visit Diagnoses Diagnosis Supervision of high-risk , unspecified trimester- Primary documented in this encounter
--- OUTSIDE RECORDS SUMMARY | 2024-05-08 08:07 | External Medical Summary | Summary of Care ---
Author Name Unknown Organization [facility] Address [address] [place] [address] Phone [phone] Care Team Providers Care Finance Advisor Name Role Phone Unavailable Primary Care Provider Unavailabl e Reason for Visit * Reason Comments Healthy Beginnings Return 31w 3d Encounter Details Date Type Department Care Team (Late st Contact Info) Description 03/07/2024 8:30 AM EDT Office Visit Gynecology/Obstetric s [facility] [address] [facility] [place] [address] Paz Michelle PA-C [address] [place] [address] , supervision, high-risk, third trimester*; Antepartum anemia complicating ; complicated by subutex maintenance, antepartum (HCC); Short interval between pregnancies complicating , antepartum; Medication exposure during first trimester of ; Late care; Health counseling; Heartburn during in third trimester Allergies No known active allergiesdocumented as of this encounter (statuses as of 03/07/2024) Medications Medication Sig Dispensed Refills Start Date [...] as of this encounter (statuses as of 03/07/2024) Active Problems Problem Noted Date Diagnosed Date [...] 02/25/2024 nutrition Due date letter given for [facility] 02/25/2024 Uzma Burris RN 02/25/2024 Problem Action Taken Date entered Entered by Date resolved Nutrition [place] referral sent via neighborly 03/07/2024 Jackson Pierre RN 03/07/24 / Antepartum anemia complicating 024 Overview: Hgb 11.0 at 28 wks Referral for IV iron placed, pt agreeable per OB protocol. 03/07 - Patient still has not taken PO iron or seen BM. Able to cotton picker prescription at this time. Will recheck levels in 4 weeks around 04/04. Last Assessment & Plan: Blood management recommended PO iron first if Hgb <11 with recheck referral back to them. Estimated Date of Delivery Comme nts Yes 05/06/2024 Based on Ultraso und documented as of this encounter (statuses as of 03/07/2024) Resolved Problems Problem Noted Date Diagnosed Date [...] will evaluate distance from her home to [facility]. Also advised that she enquire at the OB office whether something similar is available at [facility] where she initially intended to deliver (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 Tobacco use complicating 09/01/2022 02/25/2024 documented as of this encounter (statuses as of 03/07/2024) Immunizations Name Administration Dates Next Due TDAP [...] money to get more. Never true 01/26/2024 [place] Depression Scale Answer Date Recorded [place] Depression Scale Total 0 01/26/2024 The thought [...] Sign Reading Time Taken Comments Blood Pressure 104/64 03/07/2024 9:17 AM EDT Pulse - - Temperature - - Respiratory Rate - - Oxygen Saturation - - Inhaled Oxygen Concentration - - Weight 77.7 kg (171 lb 3.2 oz) 03/07/2024 9:17 A M EDT Height - - Body Mass Index 26.81 02/11/2024 12:10 PM EDT documented in this encounter Progress Notes * Paz Michelle PA-C - 03/07/2024 9:20 AM EDT Cameron Albright is a 33 year old female here for her routine OB appointment at 31w3d Her Estimated Date of Delivery: 05/06/24 Patient has not yet been scheduled with MFM. She states her phone has not been working over the last several weeks and she has not been able to make contact. She plans to call following today's appointment as her phone is now working. Last U/S 02/10 for missed anatomy was WNL. She is agreeable to scheduling growth U/S around 03/13 following today's appointment. She has not yet started taking Vitron C, as her insurance did not cover it. Intending to schedule with BM for Venofer infusions, but has not yet been scheduled. Patient's support person with her today states she will pick it up the iron today from the pharmacy today so the patient can begin taking it TID. Patient agreeable. Will plan to recheck labs in 4 weeks for improvement. Will wait for BM referral at this time. She is reporting increasing acid reflux, especially at night. She has been using Tums without relief. She reports no further concerns. REVIEW OF SYSTEMS She affirms movement. Denies vaginal bleeding, LOF, contractions, N/V, headaches, vision changes, chest pain, deep calf pain/swelling, RUQ pain. PHYSICAL EXAM Filed Vitals: 03/07/24 0917 BP: 104/64 Weight: 77.7 kg (171 lb 3.2 oz) +FHT 140s Fundal height 32 cm ASSESSMENT/PLAN , supervision, high-risk, third trimester (Primary) - US PREG FOLLOW-UP EACH FETUS; Future; Expected date: 03/13/2024 - Strongly encouraged patient to reach out to [facility] today following appointment. She is agreeable. Antepartum anemia complicating - CBC WITH WBC DIFFERENTIAL AND ANEMIA REFLEX WORKUP; Future; Expected date: 04/04/2024 - Patient to start Vitron C supplementation as prescribed TID. Plan to recheck for improvement in 4weeks. complicated by subutex maintenance, antepartum (HCC) Short interval between pregnancies complicating , antepartum Medication exposure during first trimester of Late care Health counseling Heartburn during in third trimester - Famotidine 20 MG Oral Tablet (Pepcid); Take 1 Tablet by mouth every night at bedtime. - Encouraged small, frequent meals and avoiding eating before bedtime. Reassured Pepcid is safe in . To avoid Prilosec/Omeprazole. Supervision of - labor precautions and kick counts reviewed RTO in 2 weeks Paz Michelle PA-C 03/07/2024 documented in this encounter Nursing Notes * Jackson Pierre RN - 03/07/2024 9:20 AM EDT Chief Complaint Patient presents with Healthy Beginnings Return 31w 3d Patient seen by Healthy Beginning Trade Show Manager. Patient denies any questions or concerns. documented in this encounter Plan of Treatment Upcoming Encounters Date Type Department Care Team (Late st Contact Info) Description 03/13/2024 10:30 AM EDT Imaging Radiology [facility] 2nd Floor, [address] [place] [address] 03/21/2024 9:45 AM EDT Office Visit Gynecology/Obstetrics Duncan Murphy [address] [place] [address] Jamilah Fong CRNP [address] [place] [address] Nurse Jeffrey Healthy [facility] Return [place] [address] [place] [address] Scheduled Orders Name Type Priority Associated Diagnoses Orde r Schedule US PREG FOLLOW-UP EACH FETUS Medical Imaging Routine , supervision, high-risk, third trimester Expected: 03/13/2024 (Approximate), Expires: 04/06/2025 CBC WITH WBC DIFFERENTIAL AND ANEMIA REFLEX WORKUP Lab Routine Antepartum anemia complicating Expected: 04/04/2024 (Approximate), Expires: 03/07/2025 Health Maintenance Due Date Last Done Comments [...] as of this encounter Visit Diagnoses Diagnosis , supervision, high-risk, third trimester- Primary Antepartum anemia complicating Anemia, antepartum complicated by subutex maintenance, antepartum (HCC) Short interval between pregnancies complicating , antepartum Supervision of other high-risk Medication exposure during first trimester of Supervision of other high-risk Late care Insufficient care Health counseling Other specified counseling Heartburn during in third trimester documented in this encounter
--- OUTSIDE RECORDS SUMMARY | 2024-05-08 08:07 | External Medical Summary | Summary of Care ---
Author Name Unknown Organization [facility] Address [address] [place] [address] Phone [phone] Care Team Providers Care Forging Press Operator Name Role Phone Unavailable Primary Care Provider Unavailabl e Encounter Details Date Type Department Care Team (Late st Contact Info) Description 04/13/2024 [facility] [address] [facility] [place] [address] Donna Zhang PA-C [address] [place] [address] Allergies No known active allergiesdocumented as of this encounter (statuses as of 04/13/2024) Medications Medication Sig Dispensed Refills Start Date [...] as of this encounter (statuses as of 04/13/2024) Active Problems Problem Noted Date Diagnosed Date [...] iron or seen BM. Able to pickle water pump operator prescription at this time. Will recheck levels in 4 weeks around 04/04. Last Assessment & Plan: Blood management recommended PO iron first if Hgb <11 with recheck referral back to them. Estimated Date of Delivery Comme nts Yes 05/06/2024 Based on Ultraso und documented as of this encounter (statuses as of 04/13/2024) Resolved Problems Problem Noted Date Diagnosed Date [...] will evaluate distance from her home to [facility]. Also advised that she enquire at the OB office whether something similar is available at [facility] where she initially intended to deliver (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 Tobacco use complicating 09/01/2022 02/25/2024 documented as of this encounter (statuses as of 04/13/2024) Immunizations Name Administration Dates Next Due TDAP [...] money to get more. Never true 01/26/2024 [place] Depression Scale Answer Date Recorded [place] Depression Scale Total 0 03/21/2024 The thought of harming myself has occurred to me . Never 03/21/2024 Estimated Date of Delivery Comme nts Yes [...] Telephone Encounter - Radha Blake RN - 04/13/2024 2:14 PM EDT Called patient. She n/s JAILYN appt today. Attempted to call patient. No answer, phone line rang a couple times and then there was a loud noise. Unable to leave VM. documented in this encounter Plan of Treatment Health Maintenance Due Date Last Done Comments [...]
--- OUTSIDE RECORDS SUMMARY | 2024-05-08 08:07 | External Medical Summary | Summary of Care ---
Author Name Unknown Organization [facility] Address [address] [place] [address] Phone [phone] Care Team Providers Care Ruffling Hemmer Automatic Name Role Phone Unavailable Primary Care Provider Unavailabl e Reason for Visit * Reason Comments Return Visit Encounter Details Date Type Department Care Team (Late st Contact Info) Description 04/05/2024 11:15 AM EDT Office Visit Gynecology/Obstetri silvia Murphy [address] [place] [address] Donna Zhang PA-C [address] [place] [address] Nurse Lyndsey Murphy [facility] Return [facility] [address] [place] [address] High-risk in third trimester*; Antepartum anemia complicating ; complicated by subutex maintenance, antepartum (HCC); Tobacco smoking affecting in third trimester; Short interval between pregnancies complicating , antepartum; Medication exposure during first trimester of ; Late care; Health counseling Allergies No known active allergiesdocumented as of this encounter (statuses as of 04/05/2024) Medications Medication Sig Dispensed Refills Start Date [...] as of this encounter (statuses as of 04/05/2024) Active Problems Problem Noted Date Diagnosed Date [...] PO iron or seen BM. Able to product picker prescription at this time. Will recheck levels in 4 weeks around 04/04. Last Assessment & Plan: Blood management recommended PO iron first if Hgb <11 with recheck referral back to them. Estimated Date of Delivery Comme nts Yes 05/06/2024 Based on Ultraso und documented as of this encounter (statuses as of 04/05/2024) Resolved Problems Problem Noted Date Diagnosed Date [...] sub utex maintenance, antepartum 09/01/2022 02/25/2024 Overview: [facility] Last Assessment & Plan: Briefly reviewed subutex risks including FGR and ANTONETTE. Cameron desires to participate in Eat, Sleep, Console if able and will evaluate distance from her home to [facility]. Also advised that she enquire at the OB office whether something similar is available at [facility] where she initially intended to deliver (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 Tobacco use complicating 09/01/2022 02/25/2024 documented as of this encounter (statuses as of 04/05/2024) Immunizations Name Administration Dates Next Due TDAP [...] money to get more. Never true 01/26/2024 [place] Depression Scale Answer Date Recorded [place] Depression Scale Total 0 03/21/2024 The thought [...] Sign Reading Time Taken Comments Blood Pressure 98/64 04/05/2024 11:50 AM EDT Pulse - - Temperature - - Respiratory Rate - - Oxygen Saturation - - Inhaled Oxygen Concentration - - Weight 79.4 kg (175 lb) 04/05/2024 11:50 AM EDT Height 170.2 cm (5' 7") 04/05/2024 11:50 AM EDT Body Mass Index 27.41 04/05/2024 11:50 AM EDT documented in this encounter Progress Notes * Donna Zhang PA-C - 04/05/2024 12:08 PM EDT 35w4d Moving into new place on 04/22. Some increased stress around this. Has not made it to [facility] d/t car not working and transportation issues. Has growth scheduled here next week in follow up of Subutex use. Aware of eat, sleep, console protocol for hospital stay. Reviewed GBS next visit. Denies LOF, VB. Reports BH contractions. Baby is active. Planning tubal for contraceptive. RTC in 1 week Donna Zhang PA-C documented in this encounter Nursing Notes * Radha Blake RN - 04/05/2024 12:01 PM EDT Patient seen by Healthy Beginning Sandblaster Glass. Patient denies any questions or concerns. Radha Blake RN * Cindy Beebe LPN - 04/05/2024 11:53 AM EDT 35w4d Denies concerns documented in this encounter Plan of Treatment Upcoming Encounters Date Type Department Care Team (Late st Contact Info) Description 04/11/2024 10:45 AM EDT Imaging Radiology [facility] [address] [place] [address] 04/12/2024 11:30 AM EDT Office Visit Gynecology/Obstetrics [facility] [address] [place] [address] Donna Zhang PA-C [address] [place] [address] Nurse Jeffrey Healthy Beginning Return [facility] [address] [place] [address] Health Maintenance Due Date Last Done Comments Pneumococcal Vaccine: Pediatrics (0 to 5 Years) and At-Risk Patients (6 to 64 Years) (1 of 2 - PCV) 1995 Depression Screening 2001 Hepatitis B (1 of 3 - 19+ 3-dose series) 2008 HPV/Co-Test 2019 COVID-19 Vaccine ( - 2022-2 4 season) 2023 09/11/2021, 08/14/2021, [...]
--- OUTSIDE RECORDS SUMMARY | 2024-05-08 08:07 | External Medical Summary ---
Author Name Unknown Address Unknown Organization K01:[facility] [place] [address] [place] [address] Laboratory Report Ordering Provider Test Date Status JESUS LÓPEZ 04/21/2024 11:44:20 Final Observation Date Value Abnormality Reference (Units ) Status Bacterial vaginosis [Interpretation] in Vaginal fluid Qualitative 04/21/2024 11:44:20 Negative Negative Final Negative for Bacterial Vagin osis. Correlate results with other clinical findings. Nohemi sp DNA [Presence] in Vaginal fluid by Probe 04/21/2024 11:44:20 Positive Abnormal Negative Final Nohemi species group RNA de tected. Correlate results with other clinical findings. Nohemi glabrata RNA [Presen ce] in Vaginal fluid by VICK with probe detection 04/21/2024 11:44:20 Negative Negative Final No Nohemi glabrata RNA dete cted. Correlate results with other clinical findings. Trichomonas vaginalis DNA [P resence] in Vaginal fluid by Probe 04/21/2024 11:44:20 Negative Negative Final No Trichomonas vaginalis RNA detected. Performing Location LABORATORY [facility] - [address] [place] [address]
--- OUTSIDE RECORDS SUMMARY | 2024-05-08 08:07 | External Medical Summary | Summary of Care ---
Author Name Unknown Organization [facility] Address [address] [place] [address] Phone [phone] Care Team Providers Care Jointer Submarine Cable Name Role Phone Unavailable Primary Care Provider Unavailabl e Encounter Details Date Type Department Care Team (Late st Contact Info) Description 02/28/2024 Population Health External Data Unspecified Department Allergies No known active allergiesdocumented as of [...] will evaluate distance from her home to [facility]. 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 Never true 01/26/2024 [place] Depression Scale Answer Date Recorded [place] Depression Scale Total 0 01/26/2024 The thought [...] Gynecology/Obstetrics Duncan Murphy [address] [place] [address] Joanne Arambula CRNP [address] [place] [address] Health Maintenance Due Date Last Done Comments [...]
--- OUTSIDE RECORDS SUMMARY | 2024-05-08 08:07 | External Medical Summary ---
Author Name Unknown Address Unknown Organization K01:LABORATORY [facility] [place] - [address] [place] [address] Laboratory Report Ordering Provider Test Date Status MIHIR CHAUDHARY 04/21/2024 11:47:12 Final Observation Date Value Abnormality Reference (Units ) Status Iron 04/21/2024 11:47:12 37 33-151 (ug/dL) Final Iron-binding capacity 04/21/2024 11:47:12 507 Above high normal 250-425 (ug/dL) Final Transferrin Sat % 04/21/2024 11:47:12 7 Below low normal 15-55 (%) Final Performing Location LABORATORY C - [address] [place] [address]
--- OUTSIDE RECORDS SUMMARY | 2024-05-08 08:07 | External Medical Summary | Summary of Care ---
Author Name Unknown Organization [facility] Address [address] [place] [address] Phone [phone] Care Team Providers Care Spice Room Worker Name Role Phone Unavailable Primary Care Provider Unavailabl e Encounter Details Date Type Department Care Team (Late st Contact Info) Description 04/12/2024 Telephone Gynecology/Obstetrics [facility] [address] [facility] [place] [address] Paz Michelle PA-C [address] [facility] [place] [address] Allergies No known active allergiesdocumented as of this encounter (statuses as of 04/14/2024) Medications Medication Sig Dispensed Refills Start Date [...] as of this encounter (statuses as of 04/14/2024) Active Problems Problem Noted Date Diagnosed Date [...] PO iron or seen BM. Able to cone picker prescription at this time. Will recheck levels in 4 weeks around 04/04. Last Assessment & Plan: Blood management recommended PO iron first if Hgb <11 with recheck referral back to them. Estimated Date of Delivery Comme nts Yes 05/06/2024 Based on Ultraso und documented as of this encounter (statuses as of 04/14/2024) Resolved Problems Problem Noted Date Diagnosed Date [...] will evaluate distance from her home to [facility]. Also advised that she enquire at the OB office whether something similar is available at [facility] where she initially intended to deliver (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 Tobacco use complicating 09/01/2022 02/25/2024 documented as of this encounter (statuses as of 04/14/2024) Immunizations Name Administration Dates Next Due TDAP [...] money to get more. Never true 01/26/2024 [place] Depression Scale Answer Date Recorded [place] Depression Scale Total 0 03/21/2024 The thought [...] Telephone Encounter - Urmila Buckley LPN - 04/12/2024 11:19 AM EDT ----- Message from Paz Michelle sent at 04/12/2024 9:43 AM EDT ----- Please let patient know her recent growth scan was WNL. Growth and fluid normal. Heart rate was 130bpm. Baby is head down. Thanks! Paz Michelle PA-C documented in this encounter Plan of Treatment Upcoming Encounters Date Type Department Care Team (Late st Contact Info) Description 04/21/2024 10:45 AM EDT Office Visit Gynecology/Obstetrics [address] [place] [address] Jamilah Fong CRNP [address] [place] [address] Nurse Jeffrey [facility] Return [facility] [address] [place] [address] Health Maintenance Due Date Last Done Comments [...]
--- OUTSIDE RECORDS SUMMARY | 2024-05-08 08:07 | External Medical Summary | Summary of Care ---
Author Name Unknown Organization [facility] Address [address] [place] [address] Phone [phone] Care Team Providers Care Financial Services Assistant Name Role Phone Unavailable Primary Care Provider Unavailabl e Reason for Visit * Reason Comments Healthy Beginnings Return Encounter Details Date Type Department Care Team (Late st Contact Info) Description 03/21/2024 9:45 AM EDT Office Visit Gynecology/Obstetri silvia Murphy [address] [facility] [place] [address] Jamilah Fong CRNP [address] [place] [address] Nurse Jeffrey [facility] Return [place] [address] [place] [address] High-risk in third trimester*; Antepartum anemia complicating ; complicated by subutex maintenance, antepartum (HCC); Tobacco smoking affecting in third trimester; Short interval between pregnancies complicating , antepartum; Medication exposure during first trimester of ; Late care; Health counseling; Heartburn during in third trimester Allergies No known active allergiesdocumented as of this encounter (statuses as of 03/21/2024) Medications Medication Sig Dispensed Refills Start Date [...] as of this encounter (statuses as of 03/21/2024) Active Problems Problem Noted Date Diagnosed Date [...] or questions 03/21/2024 Uzma Burris RN 03/21/2024 Antepartum anemia complicating 024 Overview: Hgb 11.0 at 28 wks Referral for IV iron placed, pt agreeable per OB protocol. 03/07 - Patient still has not taken PO iron or seen BM. Able to order picker/assembler prescription at this time. Will recheck levels in 4 weeks around 04/04. Last Assessment & Plan: Blood management recommended PO iron first if Hgb <11 with recheck referral back to them. Estimated Date of Delivery Comme nts Yes 05/06/2024 Based on Ultraso und documented as of this encounter (statuses as of 03/21/2024) Resolved Problems Problem Noted Date Diagnosed Date [...] will evaluate distance from her home to [facility]. Also advised that she enquire at the OB office whether something similar is available at [facility] where she initially intended to deliver (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 Tobacco use complicating 09/01/2022 02/25/2024 documented as of this encounter (statuses as of 03/21/2024) Immunizations Name Administration Dates Next Due TDAP [...] money to get more. Never true 01/26/2024 [place] Depression Scale Answer Date Recorded [place] Depression Scale Total 0 01/26/2024 The thought [...] Sign Reading Time Taken Comments Blood Pressure 102/58 03/21/2024 9:57 AM EDT Pulse - - Temperature - - Respiratory Rate - - Oxygen Saturation - - Inhaled Oxygen Concentration - - Weight 79.8 kg (176 lb) 03/21/2024 9:57 AM EDT Height 170.2 cm (5' 7") 03/21/2024 9:57 AM EDT Body Mass Index 27.57 03/21/2024 9:57 AM EDT documented in this encounter Progress Notes * Jamilah Fong CRNP - 03/21/2024 10:14 AM EDT 33w3d Having some cramping but knows she isn't drinking enough. Baby is active. Denies bleeding or LOF. Taking Vitron C. Recommended to take TID but is often times only remembering to take once or twice.Encouraged her to do her best with this, set an alarm on her phone to remind her. MARY Verde documented in this encounter Nursing Notes * Cindy Beebe LPN - 03/21/2024 10:05 AM EDT 33w3d Given labor instructions cramping documented in this encounter Plan of Treatment [...]
--- OUTSIDE RECORDS SUMMARY | 2024-05-08 08:07 | External Medical Summary | Summary of Care ---
Author Name Unknown Organization [facility] Address [address] [place] [address] Phone [phone] Care Team Providers Care Director Epidemiology Name Role Phone Unavailable Primary Care Provider Unavailabl e Encounter Details Date Type Department Care Team (Late st Contact Info) Description 04/12/2024 Telephone Gynecology/Obstetrics [facility] [address] [facility] [place] [address] Paz Michelle PA-C [address] [facility] [place] [address] Allergies No known active allergiesdocumented as of this encounter (statuses as of 04/12/2024) Medications Medication Sig Dispensed Refills Start Date [...] as of this encounter (statuses as of 04/12/2024) Active Problems Problem Noted Date Diagnosed Date [...] PO iron or seen BM. Able to quill picking machine operator prescription at this time. Will recheck levels in 4 weeks around 04/04. Last Assessment & Plan: Blood management recommended PO iron first if Hgb <11 with recheck referral back to them. Estimated Date of Delivery Comme nts Yes 05/06/2024 Based on Ultraso und documented as of this encounter (statuses as of 04/12/2024) Resolved Problems Problem Noted Date Diagnosed Date [...] will evaluate distance from her home to [facility]. Also advised that she enquire at the OB office whether something similar is available at [facility] where she initially intended to deliver (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 Tobacco use complicating 09/01/2022 02/25/2024 documented as of this encounter (statuses as of 04/12/2024) Immunizations Name Administration Dates Next Due TDAP [...] money to get more. Never true 01/26/2024 [place] Depression Scale Answer Date Recorded [place] Depression Scale Total 0 03/21/2024 The thought [...] Team (Late st Contact Info) Description 04/13/2024 1:30 PM EDT Office Visit Gynecology/Obstetrics [facility] [address] [place] [address] Donna Zhang PA-C [address] [place] [address] Nurse Jeffrey [facility] [address] [place] [address] Health Maintenance Due Date Last Done Comments [...]
--- OUTSIDE RECORDS SUMMARY | 2024-05-08 08:07 | External Medical Summary | Summary of Care ---
Author Name Unknown Organization [facility] Address [address] [place] [address] Phone [phone] Care Team Providers Care Account Manager Education Name Role Phone Unavailable Primary Care Provider Unavailabl e Encounter Details Date Type Department Care Team (Late st Contact Info) Description 01/11/2024 Telephone Gynecology/Obstetrics [place] [address] [place], [place] [phone] Donna Zhang PA-C [address] [facility] [address] Allergies No known active allergiesdocumented as of this encounter (statuses as of 04/11/2024) Medications Medication Sig Dispensed Refills Start Date [...] Pump as needed 1 Each 02/03/2023 Active documented as of this encounter (statuses as of 04/11/2024) Active Problems Problem Noted Date Diagnosed Date [...] as of this encounter (statuses as of 04/11/2024) Resolved Problems Problem Noted Date Diagnosed Date [...] sub utex maintenance, antepartum 09/01/2022 02/25/2024 Overview: [facility] Last Assessment & Plan: Briefly reviewed subutex risks including FGR and ANTONETTE. Cameron desires to participate in Eat, Sleep, Console if able and will evaluate distance from her home to [facility]. Also advised that she enquire at the OB office whether something similar is available at [facility] where she initially intended to deliver (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 Tobacco use complicating 09/01/2022 02/25/2024 documented as of this encounter (statuses as of 04/11/2024) Immunizations Name Administration Dates Next Due TDAP [...] money to get more. Never true 01/26/2024 [place] Depression Scale Answer Date Recorded [place] Depression Scale Total 0 03/21/2024 The thought [...] encounter Miscellaneous Notes * Telephone Encounter - Honey Arboleda LPN - 01/11/2024 9:40 AM EST I called pt to do nob intake. Pt did not answer LM with triage number provided to call back. documented in this encounter Plan of Treatment Upcoming Encounters Date Type Department Care Team (Late st Contact Info) Description 04/13/2024 1:30 PM EDT Office Visit Gynecology/Obstetrics [facility] [address] [place] [address] Donna Zhang PA-C [address] [place] [address] Nurse Jeffrey [facility] Return [facility] [address] [place] [address] Health Maintenance Due Date Last Done Comments [...]
--- OUTSIDE RECORDS SUMMARY | 2024-05-08 08:07 | External Medical Summary ---
Author Name Unknown Address Unknown Organization K01:[facility] - [address] [place] [address] Laboratory Report Ordering Provider Test Date Status MIHIR CHAUDHARY 04/21/2024 11:47:12 Final Observation Date Value Abnormality Reference (Units ) Status Ferritin 04/21/2024 11:47:12 10 Below low normal 13- 150 (ng/mL) Final Performing Location [facility] - [address] [place] [address]
--- OUTSIDE RECORDS SUMMARY | 2024-05-08 08:07 | External Medical Summary | Summary of Care ---
Author Name Unknown Organization [facility] Address [address] [place] [address] Phone [phone] Care Team Providers Care Senior Animator Name Role Phone Unavailable Primary Care Provider Unavailabl e Encounter Details Date Type Department Care Team (Late st Contact Info) Description 03/08/2024 Population Health External Data Unspecified Department Allergies No known active allergiesdocumented as of this encounter (statuses as of 03/08/2024) Medications Medication Sig Dispensed Refills Start Date [...] as of this encounter (statuses as of 03/08/2024) Active Problems Problem Noted Date Diagnosed Date [...] for neighborly given. Neighborly info given 02/25/2024 Uzam Burris RN 02/25/2024 Late care Maternal Consult [...] PO iron or seen BM. Able to cigar packer and picker prescription at this time. Will recheck levels in 4 weeks around 04/04. Last Assessment & Plan: Blood management recommended PO iron first if Hgb <11 with recheck referral back to them. Estimated Date of Delivery Comme nts Yes 05/06/2024 Based on Ultraso und documented as of this encounter (statuses as of 03/08/2024) Resolved Problems Problem Noted Date Diagnosed Date [...] sub utex maintenance, antepartum 09/01/2022 02/25/2024 [facility] Last Assessment & Plan: Briefly reviewed subutex risks including FGR and ANTONETTE. Cameron desires to participate in Eat, Sleep, Console if able and will evaluate distance from her home to [facility]. Also advised that she enquire at the OB office whether something similar is available at [facility] where she initially intended to deliver (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 Tobacco use complicating 09/01/2022 02/25/2024 documented as of this encounter (statuses as of 03/08/2024) Immunizations Name Administration Dates Next Due TDAP [...] to get more. Never true 01/26/2024 [place] Depression Scale Answer Date Recorded [place] Depression Scale Total 0 01/26/2024 The thought [...] Description 03/13/2024 10:30 AM EDT Imaging Radiology [facility] [address] [facility] [place] [address] 03/21/2024 9:45 AM EDT Office Visit Gynecology/Obstetrics [facility] Murphy [address] [place] [address] Jamilah Fong CRNP [address] [place] [address] Nurse Jeffrey [facility] Return [facility] [address] [place] [address] Health Maintenance Due Date Last Done Comments [...]
--- OUTSIDE RECORDS SUMMARY | 2024-05-08 08:07 | External Medical Summary | Summary of Care ---
Author Name Unknown Organization [facility] Address [address] [place] [address] Phone [phone] Care Team Providers Care Propeller Driven Airplane Mechanic Name Role Phone Unavailable Primary Care Provider Unavailabl e Encounter Details Date Type Department Care Team (Late st Contact Info) Description 04/12/2024 Telephone Gynecology/Obstetrics [facility] [address] [facility] [place] [address] Paz Michelle PA-C [address] [facility] [place] [address] Allergies No known [...] PO iron or seen BM. Able to nut picker prescription at this time. Will recheck [...] office whether something similar is available at [facility] where she initially intended to [...] money to get more. Never true 01/26/2024 [place] Depression Scale Answer Date Recorded [place] Depression Scale Total 0 03/21/2024 The thought [...] 04/21/2024 10:45 AM EDT Office Visit Gynecology/Obstetrics Duncan Murphy [address] [place] [address] Donna Zhang PA-C [address] [place] [address] Nurse Jeffrey [facility] Return [facility] [address] [place] [address] Health Maintenance Due Date Last Done Comments [...]
--- OUTSIDE RECORDS SUMMARY | 2024-05-08 08:07 | External Medical Summary ---
Author Name Unknown Address Unknown Organization K01:[facility] [place] [address] [place] [address] Laboratory Report Ordering Provider Test Date Status JESUS LÓPEZ 04/21/2024 11:44:20 Final Observation Date Value Abnormality Reference (Units ) Status Streptococcus agalactiae DNA [Presence] in Specimen by VICK with probe detection 04/21/2024 11:44:20 Negative Negative Final No Group B Streptococcus det ected by culture-enhanced PCR (amplified probe). GBS GBSCT - [facility] 04/21/2024 11:44:20 0.0 Final GBS SPCCT - [facility] 04/21/2024 11:44:20 31.6 Final Performing Location [facility] - [address] [place] [address]
--- OUTSIDE RECORDS SUMMARY | 2024-05-08 08:07 | External Medical Summary | Summary of Care ---
Author Name Unknown Organization [facility] Address [address] [place] [address] Phone [phone] Care Team Providers Care Truss Driver Helper Name Role Phone Unavailable Primary Care Provider Unavailabl e Reason for Visit * Reason Comments [facility] Return Encounter Details Date Type Department Care Team (Late st Contact Info) Description 03/21/2024 9:45 AM EDT Office Visit Gynecology/Obstetri silvia Murphy [address] [facility] [place] [address] Jamilah Fong CRNP [address] [place] [address] Nurse Jeffrey [facility] Return [facility] [address] [place] [address] High-risk in third trimester*; Antepartum anemia complicating [...] 02/25/2024 nutrition Due date letter given for [facility] 02/25/2024 Uzma Burris RN 02/25/2024 Problem Action Taken Date entered Entered by Date resolved Nutrition [place] referral sent via neighborly 03/07/2024 Jackson Pierre RN 03/07/24 / Antepartum anemia complicating 02/13/ 024 Overview: Hgb 11.0 at 28 wks [...] distance from her home to [facility]. Also advised that she enquire at the OB office whether something similar is available at [facility] where she initially intended to deliver [...] money to get more. Never true 01/26/2024 [place] Depression Scale Answer Date Recorded [place] Depression Scale Total 0 01/26/2024 The thought [...]
--- OUTSIDE RECORDS SUMMARY | 2024-05-08 08:07 | External Medical Summary ---
Author Name Unknown Address Unknown Organization K01:[facility] [place] - [address] [facility] [address] Laboratory Report Ordering Provider Test Date Status MIHIR CHAUDHARY 04/21/2024 11:47:12 Final Observation Date Value Abnormality Reference (Units ) Status WBC, Total 04/21/2024 11:47:12 14.97 Above high normal 4 .00-10.80 (K/uL) Final RBC 04/21/2024 11:47:12 3.77 3.85-5.15 (M/uL) Final Hemoglobin 04/21/2024 11:47:12 10.4 Below low normal 12 .0-15.3 (g/dL) Final Anemia reflex testing trigge rs on a HGB < 12.0 for Females and HGB < 13.0 for Males in accordance with the WHO Anemia Guidelines
Anemia reflex testing triggers on a HGB < 12.0 for Females and HGB < 13.0 for Males in accordance with the WHO Anemia Guidelines HCT 04/21/2024 11:47:12 32.4 Below low normal 36. 0-45.2 (%) Final MCV 04/21/2024 11:47:12 85.9 81.5-97.5 (fL) Final MCH 04/21/2024 11:47:12 27.6 27.0-34.0 (pg) Final MCHC 04/21/2024 11:47:12 32.1 32.0-36.0 (g/dL) Final RDW 04/21/2024 11:47:12 13.8 11.5-15.5 (%) Final Platelets 04/21/2024 11:47:12 265 140-400 (K /uL) Final MPV 04/21/2024 11:47:12 12.0 6.6-11.1 ( fL) Final Nucleated erythrocytes/100 leukocytes [Ratio] in Blood by Automated count 04/21/2024 11:47:12 0 <=0 (/100 WBCs) Final Performing Location LAB[facility]ATORY [facility] [place] - [facility] [address] [facility] [address]
--- OUTSIDE RECORDS SUMMARY | 2024-05-08 08:07 | External Medical Summary | Summary of Care ---
Author Name Unknown Organization [facility] Address [address] [place] [address] Phone [phone] Care Team Providers Care Civil Engineering Assistant Name Role Phone Unavailable Primary Care Provider Unavailabl e Reason for Visit * Reason Comments [facility] Return 31w 3d Encounter Details Date Type Department Care Team (Late st Contact Info) Description 03/07/2024 8:30 AM EDT Office Visit Gynecology/Obstetric s [facility] 132 [facility] [place] [address] Jet Ash PA-C [address] [place] [address] , supervision, high-risk, third trimester*; Antepartum anemia complicating ; complicated by subutex maintenance, antepartum (HCC); Short interval between pregnancies complicating , antepartum; Medication exposure during first trimester of ; Late care; Health counseling; Heartburn during in third trimester Allergies No known active allergiesdocumented as of this encounter (statuses as of 03/14/2024) Medications Medication Sig Dispensed Refills Start Date [...] as of this encounter (statuses as of 03/14/2024) Active Problems Problem Noted Date Diagnosed Date [...] 02/25/2024 nutrition Due date letter given for [facility] 02/25/2024 Uzma Burris RN 02/25/2024 Problem Action Taken Date entered Entered by Date resolved Nutrition [place] referral sent via neighborly 03/07/2024 Jackson Pierre RN 03/07/24 / Antepartum anemia complicating 024 Overview: Hgb 11.0 at 28 wks Referral for IV iron placed, pt agreeable per OB protocol. 03/07 - Patient still has not taken PO iron or seen BM. Able to picker / packer prescription at this time. Will recheck levels in 4 weeks around 04/04. Last Assessment & Plan: Blood management recommended PO iron first if Hgb <11 with recheck referral back to them. Estimated Date of Delivery Comme nts Yes 05/06/2024 Based on Ultraso und documented as of this encounter (statuses as of 03/14/2024) Resolved Problems Problem Noted Date Diagnosed Date [...] will evaluate distance from her home to [facility]. Also advised that she enquire at the OB office whether something similar is available at [facility] where she initially intended to deliver (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 Tobacco use complicating 09/01/2022 02/25/2024 documented as of this encounter (statuses as of 03/14/2024) Immunizations Name Administration Dates Next Due TDAP [...] money to get more. Never true 01/26/2024 [place] Depression Scale Answer Date Recorded [place] Depression Scale Total 0 01/26/2024 The thought [...] documented in this encounter Progress Notes * Jet Ash PA-C - 03/07/2024 9:20 AM EDT Cameron [...] Strongly encouraged patient to reach out to [facility] today following appointment. She is agreeable. [...] kick counts reviewed RTO in 2 weeks Jet Ash PA-C 03/07/2024 documented in this encounter Nursing Notes * Jackson Pierre RN - 03/07/2024 9:20 AM EDT Chief Complaint Patient presents with Healthy [facility]nings Return 31w 3d Patient seen by Healthy Beginning Adjunct Sociology Professor. Patient denies any questions or concerns. documented in this encounter Miscellaneous Notes * Addendum Note - Jet Ash PA-C - 03/14/2024 3:59 PM EDT Addended by: JET ASH on: 03/14/2024 03:59 PM Modules accepted: Orders documented in this encounter Plan of Treatment Upcoming Encounters Date Type Department Care Team (Late st Contact Info) Description 03/21/2024 9:45 AM EDT Office Visit Gynecology/Obstetrics [facility] [address] [place] [address] Jamilah Fong CRNP [address] [place] [address] Nurse Jeffrey [facility] Return [facility] [address] [place] [address] Scheduled Orders Name Type Priority Associated Diagnoses Orde r Schedule CBC WITH WBC DIFFERENTIAL AND ANEMIA REFLEX WORKUP Lab Routine Antepartum anemia complicating Expected: 04/04/2024 (Approximate), Expires: 03/07/2025 PREG FOLLOW-UP EACH FETUS Medical Imaging Routine , supervision, high-risk, third trimester Expected: 04/11/2024 (Approximate), Expires: 04/13/2025 Health Maintenance Due Date Last Done Comments [...] Not on filedocumented as of this encounter Results * US PREG FOLLOW-UP EACH FETUS (03/13/2024 10:59 AM EDT) Anatomical Region Laterality Modality Pelvis, Body Ultrasound 03/13/2024 11:3 6 AM EDT Impressions 03/14/2024 3:25 PM EDT IMPRESSION 1. Growth within normal limits utilizing GELY from initial scan. EFW: 8 g 52nd percentile. 2. Normal DIMITRIOS 3. Vertex presentation. I have personally reviewed this examination and agree with the resident/fellow physician's interpretation. Narrative 03/14/2024 3:25 PM EDT EXAM US PREG FOLLOW-UP EACH FETUS - 03/13/2024 10:59 am HISTORY Growth COMPARISON Gestational ultrasound 02/11/2024, 01/26/2024. TECHNIQUE Sonographic examination performed. FINDINGS General : [place] Presentation: Vertex heart rate: 135 bpm Amniotic Fluid: MVP 5.8 cm. DIMITRIOS: 18.7 cm which is between the 50th and 95th percentiles for this stage of . Placenta: Fundal, posterior, no previa. Anatomy 4-chamber view: Seen Stomach: Seen Kidneys: Seen Bladder: Seen Biometry The previous study of 01/10/2024 estimated the date of delivery of 05/06/2024. Utilizing that date, current gestational age is 32 weeks 2 days. Biparietal diameter: 8.1 cm, 32w 4d Head circumference: 30.2 cm, 33w 5d Abdominal circumference: 28.3 cm, 32w 3d Femur length: 6.4 cm, 33w 1d Humeral length: 5.8 cm, 33w 4d HC/AC: 1.07, within normal limits EFW: 2028 g 52nd percentile. Utilizing the date of delivery obtained from the initial scan, growth of the BPD, HC, AC, femur and humerus is within normal limits. Procedure Note TriffoLeonel MD - 03/14/2024 EXAM US PREG FOLLOW-UP EACH FETUS - 03/13/2024 10:59 am HISTORY Growth COMPARISON Gestational ultrasound 02/11/2024, 01/26/2024. TECHNIQUE Sonographic examination performed. FINDINGS General : [place] Presentation: Vertex heart rate: 135 bpm Amniotic Fluid: MVP 5.8 cm. DIMITRIOS: 18.7 cm which is between the 50th and 95th percentiles for this stageof . Placenta: Fundal, posterior, no previa. Anatomy 4-chamber view: Seen Stomach: Seen Kidneys: Seen Bladder: Seen Biometry The previous study of 01/10/2024 estimated the date of delivery of05/06/2024. Utilizing that date, current gestational age is 32 weeks 2days. Biparietal diameter: 8.1 cm, 32w 4d Head circumference: 30.2 cm, 33w 5d Abdominal circumference: 28.3 cm, 32w 3d Femur length: 6.4 cm, 33w 1d Humeral length: 5.8 cm, 33w 4d HC/AC: 1.07, within normal limits EFW: 2028 g 52nd percentile. Utilizing the date of delivery obtained from the initial scan, growth ofthe BPD, HC, AC, femur and humerus is within normal limits. IMPRESSION IMPRESSION 1. Growth within normal limits utilizing GELY from initial scan. EFW: 2028g 52nd percentile. 2. Normal DIMITRIOS 3. Vertex presentation. I have personally reviewed this examination and agree with the resident/fellow physician's interpretation. Jet Ash PA-C RAD ULTRA SOUND documented in this encounter Visit Diagnoses Diagnosis , supervision, high-risk, third trimester- Primary Antepartum anemia complicating Anemia, antepartum complicated by subutex maintenance, antepartum (HCC) Short interval between pregnancies complicating , antepartum Supervision of other high-risk Medication exposure during first trimester of Supervision of other high-risk Late care Insufficient care Health counseling Other specified counseling Heartburn during in third trimester , supervision, high-risk, third trimester documented in this encounter
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
--- OUTSIDE RECORDS SUMMARY | 2024-05-08 08:08 | External Medical Summary ---
Author Name Unknown Address Unknown Organization [id number]:LABORATORY [facility] - [address] [place] [address] Laboratory Report Ordering Provider Test Date Status JESUS LÓPEZ 02/11/2024 13:18:52 Final Observation Date Value Abnormality Reference (Units ) Status Hep B surface Ag 02/11/2024 13:18:52 Negative Neg ative Final Performing Location [facility] - [address] [place] [address]
--- OUTSIDE RECORDS SUMMARY | 2024-05-08 08:08 | External Medical Summary ---
Author Name Unknown Address Unknown Organization [id number][facility] [address] [place] [address] Laboratory Report Ordering Provider Test Date Status JESUS LÓPEZ 02/11/2024 13:18:52 Final Observation Date Value Abnormality Reference (Units ) Status Glucose [Moles/volume] in Serum or Plasma --1 hour post 50 g glucose PO 02/11/2024 13:18:52 71 70-129 (mg/dL) Final Performing Location LABORATORY [facility] 57-[address] 0 - [address] [place] [address]
--- OUTSIDE RECORDS SUMMARY | 2024-05-08 08:08 | External Medical Summary ---
Author Name Unknown Address Unknown Organization [id number]:[facility] [address] [place] [address] Laboratory Report Ordering Provider Test Date Status JESUS LÓPEZ 02/11/2024 13:18:52 Final Observation Date Value Abnormality Reference (Units ) Status Retic, % (auto) 02/11/2024 13:18:52 2.08 Above high normal 0.80-1.90 (%) Final Reticulocytes, Absolute 02/11/2024 13:18:52 78.4 31.3-100.1 (K/uL) Final Reticulocyte fraction, immature 02/11/2024 13:18:52 18.5 2.5-20.6 (%) Final Reticulocyte HGB 02/11/2024 13:18:52 31.4 29.7-37.4 (pg) Final Performing Location [facility] [place] [address] [place] [address]
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
--- OUTSIDE RECORDS SUMMARY | 2024-05-08 08:08 | External Medical Summary ---
Author Name Unknown Address Unknown Organization K01[place] [place] [address] [address] Laboratory Report Ordering Provider Test Date Status JESUS LÓPEZ 02/11/2024 13:18:52 Final Observation Date Value Abnormality Reference (Units ) Status SYNC LEUKOCYTES IN BLOOD BY AUTOMATED COUNT 02/11/2024 13:18:52 12.17 Above high normal 4.00-10.80 (K/uL) Final Segs 02/11/2024 13:18:52 72.4 40.0-75.0 (%) Final Lymphs % 02/11/2024 13:18:52 17.3 Below low normal 18.0-42.0 (%) Final Monos 02/11/2024 13:18:52 7.6 1.0-11.0 (%) Final Eosinophils 02/11/2024 13:18:52 1.6 0.0-6.0 (%) Final Basos 02/11/2024 13:18:52 0.2 0.0-2.0 (%) Final Immature Granulocyte, Percent 02/11/2024 13:18:52 0.9 0.0-2.0 (%) Final Absolute Segs 02/11/2024 13:18:52 8.81 Above high normal 1.80-7.70 (K/uL) Final Lymphs, absolute 02/11/2024 13:18:52 2.10 1.00-4.80 (K/ul) Final Monos, Abs 02/11/2024 13:18:52 0.92 0.00-1.10 (K/uL) Final Eos, Abs 02/11/2024 13:18:52 0.20 0.00-0.70 (K/uL) Final Basos, Abs 02/11/2024 13:18:52 0.03 0.00-0.20 (K/uL) Final Immature Granulocytes, Number 02/11/2024 13:18:52 0.11 0.00-0.20 (K/uL) Final Performing Location [facility] [place] [facility] [place] [address]
--- OUTSIDE RECORDS SUMMARY | 2024-05-08 08:08 | External Medical Summary | Summary of Care ---
Author Name Unknown Organization [facility] Address [address] [place] [address] Phone [phone] Care Team Providers Care Mechanical Press Operator Name Role Phone Unavailable Primary Care Provider Unavailabl e Reason for Visit * Reason Comments Blood Management Program Encounter Details Date Type Department Care Team (Late st Contact Info) Description 02/15/2024 Documentation Patient Blood Management, [facility] [address] [place] [address] Brown Mcclellan RN Allergies No known active allergiesdocumented as of this encounter (statuses as of 02/15/2024) Medications Medication Sig Dispensed Refills Start Date [...] as of this encounter (statuses as of 02/15/2024) Active Problems Problem Noted Date Diagnosed Date [...] by subutex maintenance, an tepartum 09/01/2022 Overview: [facility] Last Assessment & Plan: Briefly reviewed subutex risks including FGR and ANTONETTE. Cameron desires to participate in Eat, Sleep, Console if able and will evaluate distance from her home to [facility]. Also advised that she enquire at the OB office whether something similar is available at [facility] where she initially intended to deliver (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 Tobacco use complicating 09/01/2022 Estimated Date of Delivery Comme nts Yes 05/06/2024 Based on Ultraso und documented as of this encounter (statuses as of 02/15/2024) Resolved Problems Problem Noted Date Diagnosed Date Resolved Date Supervision of high-risk pre gnancy, unspecified trimester 09/01/2022 01/12/2023 Last Assessment & Plan: Low risk NIPT appreciated. documented as of this encounter (statuses as of 02/15/2024) Immunizations Name Administration Dates Next Due TDAP [...] money to get more. Never true 01/26/2024 [place] Depression Scale Answer Date Recorded [place] Depression Scale Total 0 01/26/2024 The thought [...] Progress Notes * Brown Mcclellan RN - 02/15/2024 8:46 AM EDT REFERRAL - Patient Blood Management Name: Cameron Albright REQUESTING SERVICE: [facility] OB REASON FOR REFERRAL: new evaluation outpatient, anemia in pregnnacy GELY: 05/06/24 Anemia Evaluation: Latest Reference Range & Units 02/11/24 13:18 HGB 12.0 - 15.3 g/dL 11.0 (L) HCT 36.0 - 45.2 % 33.0 (L) Iron 33 - 151 ug/dL 34 Iron Binding Capacity 250 - 425 ug/dL 471 (H) Transferrin Saturation Percent 15 - 55 % 7 (L) Ferritin 13 - 150 ng/mL 10 (L) Immature Reticuloctye Fraction 2.5 - 20.6 % 18.5 Reticulocyte Hemoglobin 29.7 - 37.4 pg 31.4 Current Patient Medications: Medications that may impair hemostasis: none Medications that may impair iron absorption: none Patient Refused Blood Transfusion? (e.g. Buddhist): no Possible Contributing Factors: iron deficiency Treatment Recommendations: HGB 11 in third trimester (Per guidelines needs to be < 11 for IV iron) Recommend: Ferrous Sulfate 325mg + Vitamin C 250mg PO TID (or BID as tolerated) Docusate 100mg TID (or BID) PRN Recheck hgb as indicated, re-refer to PBM if hgb < 11 on recheck. Thank you for allowing Blood Management to participate in the care of this patient. documented in this encounter Plan of Treatment Upcoming Encounters Date Type Department Care Team (Late st Contact Info) Description 02/25/2024 11:30 AM EDT Office Visit Gynecology/Obstetrics [facility] [address] [place] [address] [address], MARY Vázquez [address] [place] [address] Health Maintenance Due Date Last Done Comments [...]
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
--- OUTSIDE RECORDS SUMMARY | 2024-05-08 08:08 | External Medical Summary ---
Author Name Unknown Address Unknown Organization K01:[facility]ORY [facility] [place] [address] [place] [address] Laboratory Report Ordering Provider Test Date Status JESUS LÓPEZ 02/11/2024 13:18:52 Final Observation Date Value Abnormality Reference (Units ) Status Treponema pallidum Ab [Presence] in Serum by Immunoassay 02/11/2024 13:18:52 Nonreactive Nonreactive Final No serologic evidence of syp hilis. No additional testing clinicially indicated at this time. Consider repeat testing in 2-4 weeks if acute or primary syphilis is suspected. Performing Location [facility] [place] [address] [place] [address]
--- OUTSIDE RECORDS SUMMARY | 2024-05-08 08:08 | External Medical Summary | Summary of Care ---
Author Name Unknown Organization [facility] Address [address] [place] [address] Phone [phone] Care Team Providers Care Dispatch Specialist Name Role Phone Unavailable Primary Care Provider Unavailabl e Reason for Referral * (Within 10 days (routine)) Specialty Diagnoses / Procedures Referred By Dioni everett Referred To Contact Rene Zhang PA-C [address] [place] [address] Referral ID Status Reason Start Date Expiration Date Visits Re quested Visits Authorized Question Answer Referral Priority Within 10 days (routine) Where should this appointment be scheduled? [facility] Reason for Visit * Reason Onset Date Comments Test Results 02/14/2024 Encounter Details Date Type Department Care Team (Late st Contact Info) Description 02/14/2024 Telephone Gynecology/Obstetrics [facility] [address] [place] [address] Rene Zhang PA-C [address] [place] [address] Test Results Allergies No known active allergiesdocumented as of this encounter (statuses as of 02/25/2024) Medications Medication Sig Dispensed Refills Start Date [...] as of this encounter (statuses as of 02/25/2024) Active Problems Problem Noted Date Diagnosed Date [...] as of this encounter (statuses as of 02/25/2024) Resolved Problems Problem Noted Date Diagnosed Date [...] sub utex maintenance, antepartum 09/01/2022 02/25/2024 Overview: [facility] Last Assessment & Plan: Briefly reviewed subutex risks including FGR and ANTONETTE. Cameron desires to participate in Eat, Sleep, Console if able and will evaluate distance from her home to [facility]. 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 Tobacco use complicating 09/01/2022 02/25/2024 documented as of this encounter (statuses as of 02/25/2024) Immunizations Name Administration Dates Next Due TDAP [...] money to get more. Never true 01/26/2024 [place] Depression Scale Answer Date Recorded [place] Depression Scale Total 0 01/26/2024 The thought [...] should be reaching out to her. Also [facility] sent her message on 01/26/2024. Their phone [...] Description 02/25/2024 3:30 PM EDT Office Visit Gynecology/Obstetrics [facility] [address] [place] [address] Rene Zhang PA-C [address] [place] [address] 03/07/2024 8:30 AM EDT Office Visit Gynecology/Obstetrics [facility] [address] [place] [address] Joanne Arambula CRNP [address] [place] [address] Scheduled Referrals Name Type Priority Associated Diagnoses [...]
--- OUTSIDE RECORDS SUMMARY | 2024-05-08 08:08 | External Medical Summary ---
Author Name Unknown Address Unknown Organization K01:[facility] [address] [place] [address] Laboratory Report Ordering Provider Test Date Status JESUS LÓPEZ 02/11/2024 13:18:52 Final Observation Date Value Abnormality Reference (Units ) Status Ferritin 02/11/2024 13:18:52 10 Below low normal 13- 150 (ng/mL) Final Performing Location [facility] - [address] [place] [address]
--- OUTSIDE RECORDS SUMMARY | 2024-05-08 08:08 | External Medical Summary ---
Author Name Unknown Address Unknown Organization K01:[facility] - [facility] [address] [facility] [address] [facility] [address] [facility] [address] Laboratory Report Ordering Provider Test Date Status JESUS LÓPEZ 02/11/2024 13:18:52 Final Observation Date Value Abnormality Reference (Units ) Status HIV 1+2 Ab+HIV1 p24 Ag [Presence] in Serum or Plasma by Immunoassay 02/11/2024 13:18:52 Negative Negative Final Negative HIV-1/2 antigen and antibody screening tset results usually indicate the absence of HIV-1 and HIV-2 infection. However, such negative results do not rule-out acute HIV infection. If acute HIV-1 infection is highly suspected, it is recommended that a specimen be submitted for detection of HIV-1 RNA. Performing Location [facility] - [address] [address]
--- OUTSIDE RECORDS SUMMARY | 2024-05-08 08:08 | External Medical Summary | Summary of Care ---
Author Name Unknown Organization [facility] Address [address] [place] [address] Phone [phone] Care Team Providers Care Quality Engineering Manager Name Role Phone Unavailable Primary Care Provider Unavailabl e Encounter Details Date Type Department Care Team (Late st Contact Info) Description 02/17/2024 Telephone [facility] [address] [facility] [place] [address] Donna Zhang PA-C [address] [facility] [place] [address] Allergies No known active allergiesdocumented as of [...] for Constipation. 30 Capsule 1 02/17/2024 Active documented as of this encounter (statuses [...] by subutex maintenance, an tepartum 09/01/2022 Overview: [facility] Last Assessment & Plan: Briefly reviewed subutex risks including FGR and ANTONETTE. Cameron desires to participate in Eat, Sleep, Console if able and will evaluate distance from her home to [facility]. 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 Never true 01/26/2024 [place] Depression Scale Answer Date Recorded [place] Depression Scale Total 0 01/26/2024 The thought [...] Telephone Encounter - Urmila Buckley LPN - 02/17/2024 10:53 AM EDT MyG sent due to patient not having a phone currently. * Assessment & Plan Note - Donna Zhang PA-C - 02/17/2024 10:20 AM EDT Associated Problem(s): Antepartum anemia complicating Blood management recommended PO iron first if Hgb <11 with recheck referral back to them. * Telephone Encounter - Donna Zhang PA-C - 02/17/2024 10:16 AM EDT Received note back from blood management. They are recommending trial of PO iron first and if not improve referral for IV iron. Vitron C sent to pharmacy. She should try to take 2-3 times a day as tolerated. Colyumiko also sent topharmacy for as need use for constipation. We will repeat blood work in about 4 weeks from start. Please make aware. documented in this encounter Plan of Treatment Upcoming Encounters Date Type Department Care Team (Late st Contact Info) Description 02/25/2024 11:30 AM EDT Office [facility] [address] [place] [address] Joanne Arambula CRNP [address] [place] [address] Health Maintenance Due Date Last Done Comments [...]
--- OUTSIDE RECORDS SUMMARY | 2024-05-08 08:08 | External Medical Summary ---
Author Name Unknown Address Unknown Organization K01:[facility] - [address] [place] [address] Laboratory Report Ordering Provider Test Date Status JESUS LÓPEZ 02/11/2024 13:18:52 Final Observation Date Value Abnormality Reference (Units ) Status Hep C Ab 02/11/2024 13:18:52 Negative Negative Final Further HCV quantitative hari ting not performed per protocol. Performing Location [facility] - [address] [place] [address]
--- OUTSIDE RECORDS SUMMARY | 2024-05-08 08:08 | External Medical Summary ---
Author Name Unknown Address Unknown Organization K01:[facility] - [address] [place] [address] Laboratory Report Ordering Provider Test Date Status JESUS LÓPEZ 02/11/2024 13:18:52 Final Observation Date Value Abnormality Reference (Units ) Status ABO 02/11/2024 13:18:52 A Final RH 02/11/2024 13:18:52 Positive Final RED BLOOD CELL ANTIBODY SCREEN 02/11/2024 13:18:52 Negative Final SPECIMEN EXPIRATION DATE 02/11/2024 13:18:52 02/14/2024 23:59 Final Performing Location [facility] - [address] [place] [address]
--- OUTSIDE RECORDS SUMMARY | 2024-05-08 08:08 | External Medical Summary | Summary of Care ---
Author Name Unknown Organization [facility] Address [address] [place] [address] Phone [phone] Care Team Providers Care Bag Loader Name Role Phone Unavailable Primary Care Provider Unavailabl e Reason for Referral * (Within 10 days (routine)) Specialty Diagnoses / Procedures Referred By Dioni everett Referred To Contact Rene Zhang PA-C [address] [place] [address] Referral ID Status Reason Start Date Expiration Date Visits Re quested Visits Authorized Question Answer Referral Priority Within 10 days (routine) Where should this appointment be scheduled? [facility] Reason for Visit * Reason Onset Date Comments Test Results 02/14/2024 Encounter Details Date Type Department Care Team (Late st Contact Info) Description 02/14/2024 Telephone Gynecology/Obstetrics [facility] [address] [place] [address] Rene Zhang PA-C [address] [place] [address] Test Results Allergies No known active allergiesdocumented [...] by subutex maintenance, an tepartum 09/01/2022 Overview: [facility] Last Assessment & Plan: Briefly reviewed subutex risks including FGR and ANTONETTE. Cameron desires to participate in Eat, Sleep, Console if able and will evaluate distance from her home to [facility]. Also advised that she enquire [...] money to get more. Never true 01/26/2024 [place] Depression Scale Answer Date Recorded [place] Depression Scale Total 0 01/26/2024 The thought [...] Duncan Murphy [address] [place] [address] BackerJoanne CRNP [address] [place] [address] Scheduled Referrals Name Type Priority Associated Diagnoses [...]
--- OUTSIDE RECORDS SUMMARY | 2024-05-08 08:08 | External Medical Summary ---
Author Name Unknown Address Unknown Organization K01:LAB[facility]ORY [facility] - [facility] [address] [place] [address] Laboratory Report Ordering Provider Test Date Status JESUS LÓPEZ 02/11/2024 13:18:52 Final Observation Date Value Abnormality Reference (Units ) Status Creatinine 02/11/2024 13:18:52 0.5 0.5-1.0 (mg/dL) Final Glomerular filtration rate/1.73 sq M.predicted [Volume Rate/Area] in Serum, Plasma or Blood by Creatinine-based formula (CKD-EPI) 02/11/2024 13:18:52 >90 >=60 (mL/min) Final eGFR is calculated based on the CKD-EPI 2020 equation Performing Location LAB[facility]ATORY [facility] - [address] [place] [address]
--- OUTSIDE RECORDS SUMMARY | 2024-05-08 08:08 | External Medical Summary | Summary of Care ---
Author Name Unknown Organization [facility] Address [address] [place] [address] Phone [phone] Care Team Providers Care Powder Mixer Name Role Phone Unavailable Primary Care Provider Unavailabl e Reason for Visit * Reason Onset Date Comments Test Results 02/14/2024 Encounter Details Date Type Department Care Team (Late st Contact Info) Description 02/14/2024 Telephone Gynecology/Obstetrics [facility] [address] [facility] [place] [address] Donna Zhang PA-C [address] [place] [address] Test Results Allergies No known active allergiesdocumented [...] by subutex maintenance, an tepartum 09/01/2022 Overview: [facility] Last Assessment & Plan: Briefly reviewed subutex risks including FGR and ANTONETTE. Cameron desires to participate in Eat, Sleep, Console if able and will evaluate distance from her home to [facility]. 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 Never true 01/26/2024 [place] Depression Scale Answer Date Recorded [place] Depression Scale Total 0 01/26/2024 The thought [...] see my G. * Telephone Encounter - Donna Zhang PA-C - 02/14/2024 9:36 AM EDT [...] to reach her. * Telephone Encounter - Donna Zhang PA-C - 02/14/2024 8:08 AM EDT Follow up for missed anatomy. Showed remaining anatomy well seen. No concerns noted. She was to see Maternal Medicine due to being on several medications in this placing her at higher risk. Would still recommend she see them. Please let her know. They sent her myG, she needs to contact them. Donna Zhang PA-C documented in this encounter Plan of Treatment Upcoming Encounters Date Type Department Care Team (Late st Contact Info) Description 02/25/2024 11:30 AM EDT Office Visit Gynecology/Obstetrics [facility] [address] [place] [address] BackerJoanne CRNP [address] [place] [address] Health Maintenance Due Date Last Done Comments [...]
--- OUTSIDE RECORDS SUMMARY | 2024-05-08 08:08 | External Medical Summary | Summary of Care ---
Author Name Unknown Organization [facility] Address [address] [place] [address] Phone [phone] Care Team Providers Care Early Childhood Teacher Name Role Phone Unavailable Primary Care Provider Unavailabl e Reason for Referral * (Within 10 days (routine)) Specialty Diagnoses / Procedures Referred By Dioni everett Referred To Contact Rene Zhang PA-C [address] [place] [address] Referral ID Status Reason Start Date Expiration Date Visits Re quested Visits Authorized Question Answer Referral Priority Within 10 days (routine) Where should this appointment be scheduled? [facility] Reason for Visit * Reason Onset Date Comments Test Results 02/14/2024 Encounter Details Date Type Department Care Team (Late st Contact Info) Description 02/14/2024 Telephone Gynecology/Obstetrics [facility] [address] [place] [address] Rene Zhang PA-C [address] [facility] [place] [address] Test Results Allergies No known active allergiesdocumented [...] by subutex maintenance, an tepartum 09/01/2022 Overview: [facility] Last Assessment & Plan: Briefly reviewed subutex risks including FGR and ANTONETTE. Cameron desires to participate in Eat, Sleep, Console if able and will evaluate distance from her home to [facility]. Also advised that she enquire [...] to get more. Never true 01/26/2024 [place] Depression Scale Answer Date Recorded [place] Depression Scale Total 0 01/26/2024 The thought [...] Duncan Murphy [address] [place] [address] BackerJoanne CRNP [address] [place] [address] Scheduled Referrals Name Type Priority Associated Diagnoses [...]
--- OUTSIDE RECORDS SUMMARY | 2024-05-08 08:08 | External Medical Summary | Summary of Care ---
Author Name Unknown Organization [facility] Address [address] [place] [address] Phone [phone] Care Team Providers Care Health Diagnostics Teacher Name Role Phone Unavailable Primary Care Provider Unavailabl e Reason for Visit * Reason Comments Return Visit Encounter Details Date Type Department Care Team (Late st Contact Info) Description 02/11/2024 2:15 PM EDT Office Visit Gynecology/Obstetric s [facility] [address] [place] [address] Jamilah Fong CRNP [address] [place] [address] Supervision of high risk due to social problems in second trimester*; complicated by subutex maintenance, antepartum (HCC) Allergies No known active allergiesdocumented as of [...] by subutex maintenance, an tepartum 09/01/2022 Overview: [facility] Last Assessment & Plan: Briefly reviewed subutex risks including FGR and ANTONETTE. Cameron desires to participate in Eat, Sleep, Console if able and will evaluate distance from her home to [facility]. 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 Never true 01/26/2024 [place] Depression Scale Answer Date Recorded [place] Depression Scale Total 0 01/26/2024 The thought [...] Sign Reading Time Taken Comments Blood Pressure 100/62 02/11/2024 12:10 PM EDT Pulse - - Temperature - - Respiratory Rate - - Oxygen Saturation - - Inhaled Oxygen Concentration - - Weight 76.2 kg (168 lb) 02/11/2024 12:10 PM EDT Height 170.2 cm (5' 7") 02/11/2024 12:10 PM EDT Body Mass Index 26.31 02/11/2024 12:10 PM EDT documented in this encounter Progress Notes * Jamilah Fong CRNP - 02/11/2024 1:16 PM EDT 27w6d U/s today for missed anatomy, report pending. +cardiac activity on u/s. Concerned that baby is low on u/s, reassured this does indicate delivery. Baby is active. Denies contractions, bleeding, LOF. Glucola and NOB labs today. Wants to wait until next visit for TDAP. MARY Verde * Honey Arboleda LPN - 02/11/2024 1:00 PM EDT 27w6d Doing glucola documented in this encounter Plan of Treatment Upcoming Encounters Date Type Department Care Team (Late st Contact Info) Description 02/25/2024 11:30 AM EDT Office Visit Gynecology/Obstetrics [facility] [address] [place] [address] Backer, MARY Vázquez [address] [place] [address] Health Maintenance Due Date Last Done Comments [...] this encounter Visit Diagnoses Diagnosis Supervision of high risk due to social problems in second trimester- Primary Supervision of other high-risk complicated by subutex maintenance, antepartum (HCC) documented in this encounter
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
--- OUTSIDE RECORDS SUMMARY | 2024-05-08 08:09 | External Medical Summary | Summary of Care ---
Author Name Unknown Organization [facility] Address [address] [place] [address] Phone [phone] Care Team Providers Care Carver And Checkerer Specials Name Role Phone Unavailable Primary Care Provider Unavailabl e Reason for Visit * Reason Onset Date Comments Referral 01/26/2024 Encounter Details Date Type Department Care Team (Late st Contact Info) Description 01/26/2024 Telephone Clerk Supervisor Obstetrics Maternal Medicine, [place] [address], [place] [id number] [place], Nurse Clerk Supervisor [facility] [address] [place], [place] [phone] Referral Allergies No known active allergiesdocumented as of this encounter (statuses as of 01/26/2024) Medications Medication Sig Dispensed Refills Start Date End Date Status Buprenorphine HCl 8 MG Sublingual Tablet Sublingual (Subutex) PLACE 1 TABLET (8 MG) DAILY ALLOW TO DISSOLVE FULLY UNDER TONGUE, DO NOT CHEW, DO NOT SWALLOW 0 04/20/2022 Active Gummies 0.18-25 MG Oral Tablet Chewable Take by mouth . 0 Acti ve Nicotine 7 MG/24HR Transdermal Patch 24 Hour (Nicoderm CQ)Indications:Pregna ncy complicated by tobacco use in first trimester One 7 mg patch daily for 2 weeks; Remove old patch daily; and then stop. 14 Patch 1 09/01/2022 Active Additional Information Patient not taking.Reported on 02/24/2023 Amphetamine-Dextroamp hetamine 20 MG Oral Tablet (Adderall) take 1 tablet by mouth daily AT 2PM 0 09/01/2022 Active Breast Pump Use as directed 1 Each 0 01/01/2023 Active Breast Pump Pump as needed 1 Each 0 02/03/2023 Active Ondansetron 4 MG Oral Tablet Disintegrating (Zofran) Place 1 Tablet on tongue every 8 hours as needed for Nausea. dissolve on tongue. 10 Tablet 0 01/19/2024 Active documented as of this encounter (statuses as of 01/26/2024) Active Problems Problem Noted Date Diagnosed Date [...] will evaluate distance from her home to [facility]. Also advised that she enquire at the OB office whether something similar is available at [facility] where she initially intended to deliver (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 Tobacco use complicating 09/01/2022 Estimated Date of Delivery Comme nts Yes 05/06/2024 Based on Ultraso und documented as of this encounter (statuses as of 01/26/2024) Resolved Problems Problem Noted Date Diagnosed Date Resolved Date Supervision of high-risk pre gnancy, unspecified trimester 09/01/2022 01/12/2023 Last Assessment & Plan: Low risk NIPT appreciated. documented as of this encounter (statuses as of 01/26/2024) Immunizations Name Administration Dates Next Due TDAP [...] money to get more. Never true 01/26/2024 [place] Depression Scale Answer Date Recorded [place] Depression Scale Total 0 01/26/2024 The thought [...] encounter Miscellaneous Notes * Telephone Encounter - Triny Olsen OSA - 01/26/2024 1:50 PM EST Called patient, no answer, could not leave voicemail. Sent Denty's message. * Telephone Encounter - Uzma Veloz CCMA - 01/26/2024 1:30 PM EST Estimated Date of Delivery: 05/06/24 Please schedule for 45 MINUTE CONSULT SIMPLE MEDICAL WITH PARTS REPRESENTATIVE, in time frame of next available or atpatient's earliest convenience at location Pending sale to [facility] with the indication of late to care, subutex, adderral use, SIP. Please schedule anatomy within next 2-3 weeks. Referring Provider: Donna Zhang PA-C documented in this encounter Plan of Treatment Upcoming Encounters Date Type Department Care Team (Late st Contact Info) Description 02/10/2024 12:20 PM EDT Laboratory Laboratory, [address] [place] [phone] [facility] [address] [place] [address] 02/10/2024 12:45 PM EDT Imaging Radiology [facility] 2nd Floor, [place] [address] [place] [address] 02/10/2024 1:30 PM EDT Office Visit Gynecology/Obstetrics [facility] [address] [place] [address] Jamilah Fong CRNP [address] [place] [address] Health Maintenance Due Date Last Done Comments [...]
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
--- OUTSIDE RECORDS SUMMARY | 2024-05-08 08:09 | External Medical Summary | Summary of Care ---
Author Name Unknown Organization [facility] Address [address] [place] [address] Phone [phone] Care Team Providers Care Systems Analysis Manager Name Role Phone Unavailable Primary Care Provider Unavailabl e Reason for Referral * Evaluate & Treat - Unlimited Visits (Within 10 days (routine)) - Pending Review Specialty Diagnoses / Procedures Referred By Dioni t Referred To Contact Obstetrics/Gynecology / Maternal Medicine Diagnoses High-risk in second trimester Late care complicated by subutex maintenance, antepartum (HCC) Medication exposure during first trimester of Short interval between pregnancies complicating , antepartum Donna [facility] PA-C [facility] [address] Referral ID Status Reason Start Date Expiration Date Visits Requested Visits Authorized [id number] Pending Review Specialty Services Required 01/26/[phone] Question Answer Referral Priority Within 10 days (routine) Has the patient had a viability scan? Yes Date performed 01/10/2024 Location performed Radiology Reason for referral Other Please provide additional details Subutex and adderral use, late care Where should this appointment be scheduled? [facility] Comments /Para: LMP: No LMP recorded (lmp unknown). Patient is . GELY: 05/06/2024, by Ultrasound Pre-Gravid BMI: Could not be calculated Pt to be scheduled for follow up missed anatomy locally until can be seen by MFM. Reason for Visit * Reason Comments Initial Visit Encounter Details Date Type Department Care Team (Late st Contact Info) Description 01/26/2024 10:30 AM EST Office Visit Gynecology/Obstetric s [facility] [address] [place] [phone] Donna Zhang PA-C [address] [place] [address] High-risk in second trimester*; Late care; complicated by subutex maintenance, antepartum (HCC); Medication exposure during first trimester of ; Encounter for follow-up ultrasound of anatomy; Short interval between pregnancies complicating , antepartum; Encounter for screening examination for other mental health and behavioral disorders Allergies No known active allergiesdocumented as of [...] by subutex maintenance, an tepartum 09/01/2022 Overview: [facility] Family [facility] Last Assessment & Plan: Briefly reviewed subutex risks including FGR and ANTONETTE. Cameron desires to participate in Eat, Sleep, Console if able and will evaluate distance from her home to [facility]. Also advised that she enquire at the OB office whether something similar is available at [facility] where she initially intended to [...] money to get more. Never true 01/26/2024 [place] Depression Scale Answer Date Recorded [place] Depression Scale Total 0 01/26/2024 The thought [...] Sign Reading Time Taken Comments Blood Pressure 98/60 01/26/2024 9:54 AM EST Pulse - - Temperature - - Respiratory Rate - - Oxygen Saturation - - Inhaled Oxygen Concentration - - Weight 76.2 kg (168 lb) 01/26/2024 9:54 AM EST Height 170.2 cm (5' 7") 01/26/2024 9:54 AM EST Body Mass Index 26.31 01/26/2024 9:54 AM EST documented in this encounter Progress Notes * Donna Zhang PA-C - 01/26/2024 10:18 AM EST CC: NOB HPI: Cameron Albright is a 33 year old female here for initial OB exam. GELY 05/06/2024 by second trimester ultrasound indicating viable IUP. Patient is currently 25w4d today. LMP unknown. Pt reports using control pills that she had at home shortly following delivery up until missed period in October. + test at that time. She is taking vitamins. She plans to breastfeed . Reviewed PMH, social hx, family hx, surgical hx, ob hx with patient. Pertinent positives: - Subutex use - Adderral use for ADHD - Late care Discussed Qnatal and Quad screen. Reviewed current medications with patient. Last pap smear 2021 NILM/-HPV [place] Depression Scale: No data recorded Duncan suicide question and score: Score of 3 = Yes, quite often. Score of 2 = Sometimes. Score of 1 = Hardly ever The thought of harming myself has occurred to me.: 0 Reviewed responses and totaled 4. OB History Para Term AB Living 5 3 3 1 3 SAB IAB Ectopic Multiple Live Births 1 2 # Outcome Date GA Lbr Timo/2nd Weight Sex Delivery Anes PTL Lv 5 Current 4 Term 03/19/23 40w2d 3.544 kg (7 lb 13 oz) F Vag-Spont N 3 Term 04/17/13 3.884 kg (8 lb 9 oz) M Vag-Spont EPI N VIVIANE 2 Term 07/05/06 3.175 kg (7 lb) F Vag-Spont EPI N VIVIANE 1 IAB Past Medical History: Diagnosis Date ADD (attention deficit disorder) Encounter for monitoring Subutex maintenance therapy Migraine without aura Social History Socioeconomic History Marital status: Unknown Tobacco Use Smoking status: Every Day Smokeless tobacco: Never Substance and Sexual Activity Alcohol use: Not Currently Drug use: Not Currently Sexual activity: Yes Partners: Male Social Determinants of Health Food Insecurity: Unknown (01/01/2023) Hunger Vital Sign Worried About Running Out of Food in the Last Year: Patient declined Ran Out of Food in the Last Year: Patient declined Past Surgical History: Procedure Laterality Date DENTAL SURGERY PROCEDURE NEC ID TX INCOMPLETE ANY TRIMESTER SURGICAL Current Outpatient Medications Medication Sig Dispense Refill Buprenorphine HCl 8 MG Sublingual Tablet Sublingual (Subutex) PLACE 1 TABLET (8 MG) DAILY ALLOW TO DISSOLVE FULLY UNDER TONGUE, DO NOT CHEW, DO NOT SWALLOW Gummies 0.18-25 MG Oral Tablet Chewable Take by mouth . Amphetamine-Dextroamphetamine 20 MG Oral Tablet (Adderall) take 1 tablet by mouth daily AT 2PM Ondansetron 4 MG Oral Tablet Disintegrating (Zofran) Place 1 Tablet on tongue every 8 hours as needed for Nausea. dissolve on tongue. 10 Tablet 0 Nicotine 7 MG/24HR Transdermal Patch 24 Hour (Nicoderm CQ) One 7 mg patch daily for 2 weeks; Removeold patch daily; and then stop. (Patient not taking: Reported on 02/24/2023) 14 Patch 1 Breast Pump Use as directed 1 Each 0 Breast Pump Pump as needed 1 Each 0 No current facility-administered medications for this visit. Review of patient's allergies indicates: No Known Allergies Family History Problem Relation Age of Onset Lung cancer Father Throat cancer Father Ovarian cancer Grandmother (Maternal) Cervical Cancer Aunt (Paternal) Breast Cancer Aunt (Paternal) Denies family history of genetic conditions in patient's and FOB's families. ROS: General: no fevers, chills CV: no chest pain, SOB GI: no constipation, diarrhea Breast: no masses, nipple discharge : no vaginal bleeding, unusual vaginal discharge, dysuria Psychological: no anxiety, depression, SI/HI PHYSICAL EXAM: please see physical [employer]of[employer] Documentation Provider requested corporate communications specialist. Name of corporate communications specialist: JAYESH White +FHT by ultrasound ASSESSMENT/PLAN: High-risk in second trimester (Primary) - Discussed timing of routine OB care - Recommended Covid vaccine due to increased risk of severe disease in . - Offered genetic screening and explained that screening does not provide a definitive diagnosis. Patient will notify office if she desires. - Recommended clean healthy diet and discussed foods/drinks to avoid in . Discussed recommend weight gain in . - Counseled on OTC measures to help alleviate nausea and advised to call if these are ineffective - Recommended daily vitamin. - Discussed labs as ordered and instructed patient to present to lab following appointment. - MFM referral indicated - Desires tubal for contraceptive. - RTO in 2 weeks for JAILYN, PRN with concern - CULTURE, URINE, QUANTITATIVE - TYPE AND SCREEN; Future; Expected date: 01/26/2024 - RUBELLA IGG ANTIBODY; Future; Expected date: 01/26/2024 - HEPATITIS B SURFACE ANTIGEN; Future; Expected date: 01/26/2024 - HIV ANTIGEN & ANTIBODY SCREEN W/ CONFIRMATION; Future; Expected date: 01/26/2024 - CHLAMYDIA TRACHOMATIS AND NEISSERIA GONORRHOEAE, AMPLIFIED PROBE - CBC WITH WBC DIFFERENTIAL AND ANEMIA REFLEX WORKUP; Future; Expected date: 01/26/2024 - HEPATITIS C ANTIBODY SCREEN WITH PROGRESSION TO HEPATITIS C RNA QUANTITATIVE; Future; Expected date: 01/26/2024 - SYPHILIS ANTIBODY SCREEN WITH REFLEX TO RPR; Future; Expected date: 01/26/2024 - 50-G GESTATIONAL GLUCOSE, 1 HOUR; Future; Expected date: 02/09/2024 - URINALYSIS, POINT OF CARE (ENTER/EDIT) - US PREG LIMITED 1 OR MORE FETUSES; Future; Expected date: 01/26/2024 - MFM US MATERNAL 1ST FETUS; Future; Expected date: 01/26/2024 - MATERNAL MEDICINE REFERRAL OP Late care - MFM US MATERNAL 1ST FETUS; Future; Expected date: 01/26/2024 - MATERNAL MEDICINE REFERRAL OP complicated by subutex maintenance, antepartum (HCC) - MFM US MATERNAL 1ST FETUS; Future; Expected date: 01/26/2024 - MATERNAL MEDICINE REFERRAL OP Medication exposure during first trimester of On Adderral in last as well as Subutex. Has been counseled on risks would like to continue. Agreeable to MFM referral. - MFM US MATERNAL 1ST FETUS; Future; Expected date: 01/26/2024 - MATERNAL MEDICINE REFERRAL OP Encounter for follow-up ultrasound of anatomy - US PREG LIMITED 1 OR MORE FETUSES; Future; Expected date: 01/26/2024 Short interval between pregnancies complicating , antepartum - MFM US MATERNAL 1ST FETUS; Future; Expected date: 01/26/2024 - MATERNAL MEDICINE REFERRAL OP Follow Up: Return in about 2 weeks (around 02/09/2024), or if symptoms worsen or fail to improve, for Return visit. | For: Return visit | Check-out note: Needs ultrasound and glucolalab appointment in 2 weeks with next appointment Donna Zhang PA-C documented in this encounter Nursing Notes * Cindy Beebe LPN - 01/26/2024 10:28 AM EST NOB 25w4d Had anatomy scan today- needs additional imaging in 2 weeks. Unexpected but otherwise denies concerns today. documented in this encounter Plan of Treatment Upcoming Encounters Date Type Department Care Team (Late st Contact Info) Description 02/10/2024 12:20 PM EDT Laboratory Laboratory, [facility] [address] [place] [phone] [email or web address] [address] [place] [place] [address] 02/10/2024 12:45 PM EDT Imaging Radiology [facility] [place] [address] [place] [address] 02/10/2024 1:30 PM EDT Office Visit Gynecology/Obstetrics [facility] [place] [address] Jamilah Fong CRNP [address] [place] [address] Scheduled Orders Name Type Priority Associated Diagnoses Orde r Schedule CULTURE, URINE, QUANTITATIVE Lab Routine High-risk in second trimester Ordered: 01/26/2024 TYPE AND SCREEN Lab Routine High-risk in second trimester Expected: 01/26/2024 (Approximate), Expires: 02/25/2025 RUBELLA IGG ANTIBODY Lab Routine High-risk in second trimester Expected: 01/26/2024 (Approximate), Expires: 01/25/2025 HEPATITIS B SURFACE ANTIGEN Lab Routine High-risk in second trimester Expected: 01/26/2024 (Approximate), Expires: 01/25/2025 HIV ANTIGEN & ANTIBODY SCREEN W/ CONFIRMATION Lab Routine High-risk in second trimester Expected: 01/26/2024 (Approximate), Expires: 01/25/2025 CHLAMYDIA TRACHOMATIS AND NEISSERIA GONORRHOEAE, AMPLIFIED PROBE Lab Routine High-risk in second trimester Ordered: 01/26/2024 CBC WITH WBC DIFFERENTIAL AND ANEMIA REFLEX WORKUP Lab Routine High-risk in second trimester Expected: 01/26/2024 (Approximate), Expires: 01/25/2025 HEPATITIS C ANTIBODY SCREEN WITH PROGRESSION TO HEPATITIS C RNA QUANTITATIVE Lab Routine High-risk in second trimester Expected: 01/26/2024 (Approximate), Expires: 01/25/2025 SYPHILIS ANTIBODY SCREEN WITH REFLEX TO RPR Lab Routine High-risk in second trimester Expected: 01/26/2024 (Approximate), Expires: 01/25/2025 50-G GESTATIONAL GLUCOSE, 1 HOUR Lab Routine High-risk in second trimester Expected: 02/09/2024 (Approximate), Expires: 01/25/2025 URINALYSIS, POINT OF CARE (ENTER/EDIT) Point of Care Testing Routine High-risk in second trimester Ordered: 01/26/2024 US PREG LIMITED 1 OR MORE FETUSES Medical Imaging Routine High-risk in second trimester Encounter for follow-up ultrasound of anatomy Expected: 01/26/2024, Expires: 02/25/2025 MFM US MATERNAL 1ST FETUS Medical Imaging Routine High-risk in second trimester Late care complicated by subutex maintenance, antepartum (HCC) Medication exposure during first trimester of Short interval between pregnancies complicating , antepartum Expected: 01/26/2024, Expires: 02/25/2025 Scheduled Referrals Name Type Priority Associated Diagnoses Orde r Schedule MATERNAL MEDICINE REFERRAL OP Referral Within 10 days (routine) High-risk in second trimester Late care complicated by subutex maintenance, antepartum (HCC) Medication exposure during first trimester of Short interval between pregnancies complicating , antepartum Ordered: 01/26/2024 Health Maintenance Due Date Last Done Comments [...] encounter Visit Diagnoses Diagnosis High-risk in second trimester- Primary Late care Insufficient care complicated by subutex maintenance, antepartum (HCC) Medication exposure during first trimester of Supervision of other high-risk Encounter for follow-up ultrasound of anatomy Short interval between pregnancies complicating , antepartum Supervision of other high-risk Encounter for screening examination for other mental health and behavioral disorders documented in this encounter
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
--- OUTSIDE RECORDS SUMMARY | 2024-05-08 08:09 | External Medical Summary | Summary of Care ---
Author Name Unknown Organization [facility] Address [address] [place] [address] Phone [phone] Care Team Providers Care Senior Accounts Payable Specialist Name Role Phone Unavailable Primary Care Provider Unavailabl e Encounter Details Date Type Department Care Team (Late st Contact Info) Description 01/12/2024 Telephone Gynecology/Obstetrics [facility] [address] [place] [address] Genaro Melissa MD [address] [facility] [place] [address] Allergies No known active allergiesdocumented as of [...] by subutex maintenance, an tepartum 09/01/2022 Overview: [facility] Last Assessment & Plan: Briefly reviewed subutex risks including FGR and ANTONETTE. Cameorn desires to participate in Eat, Sleep, Console if able and will evaluate distance from her home to [facility]. 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 Patient declined 08/2023 [place] Depression Scale Answer Date Recorded [place] Depression Scale Total 0 05/20/2023 The thought [...] encounter Miscellaneous Notes * Telephone Encounter - Charu Barcenas MED ASSIST - 01/17/2024 2:24 PM EST Ultrasound scheduled, pt aware * Addendum Note - Donna Zhang PA-C [...] pt back. Pt can be reached at [phone] * Telephone Encounter - Radha Blake RN [...] Description 01/26/2024 8:15 AM EST Imaging Radiology [facility] [address] [facility] [place] [address] 01/26/2024 10:30 AM EST Office Visit Gynecology/Obstetrics [facility] [address] [place] [address] Donna Zhang PA-C [address] [facility] [place] [address] Scheduled Orders Name Type Priority Associated Diagnoses [...]
--- OUTSIDE RECORDS SUMMARY | 2024-05-08 08:09 | External Medical Summary | Summary of Care ---
Author Name Unknown Organization [facility] Address [address] [place] [address] Phone [phone] Care Team Providers Care Deputy Jailer Name Role Phone Unavailable Primary Care Provider Unavailabl e Encounter Details Date Type Department Care Team (Late st Contact Info) Description 01/06/2024 Telephone Gynecology/Obstetrics [facility] [address] [place] [address] Genaro Melissa MD [address] [facility] [place] [address] Allergies No known active allergiesdocumented as of [...] by subutex maintenance, an tepartum 09/01/2022 Overview: [facility] Last Assessment & Plan: Briefly reviewed subutex risks including FGR and ANTONETTE. Cameron desires to participate in Eat, Sleep, Console if able and will evaluate distance from her home to [facility]. 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 Patient declined 08/2023 [place] Depression Scale Answer Date Recorded [place] Depression Scale Total 0 05/20/2023 The thought [...] Description 01/26/2024 8:15 AM EST Imaging Radiology [facility] [address] [place] [address] 01/26/2024 10:30 AM EST Office Visit Gynecology/Obstetrics [facility] [address] [place] [address] Donna Zhang PA-C [address] [place] [address] Health Maintenance Due Date Last Done Comments [...]
--- OUTSIDE RECORDS SUMMARY | 2024-05-08 08:09 | External Medical Summary | Summary of Care ---
Author Name Unknown Organization [facility] Address [address] [place] [address] Phone [phone] Care Team Providers Care Hand Cultivator Name Role Phone Unavailable Primary Care Provider Unavailabl e Reason for Visit * Reason Onset Date Comments Referral 01/26/2024 Encounter Details Date Type Department Care Team (Late st Contact Info) Description 01/26/2024 Telephone Director Design Obstetrics Maternal Medicine, [place] [address] [place], [place] [phone] [place], Nurse Director Design [facility] [address] [place], [place] [address] Referral Allergies No known active allergiesdocumented as of this encounter (statuses as of 01/31/2024) Medications Medication Sig Dispensed Refills Start Date [...] as of this encounter (statuses as of 01/31/2024) Active Problems Problem Noted Date Diagnosed Date [...] 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 Tobacco use complicating 09/01/2022 Estimated Date of Delivery Comme nts Yes 05/06/2024 Based on Ultraso und documented as of this encounter (statuses as of 01/31/2024) Resolved Problems Problem Noted Date Diagnosed Date Resolved Date Supervision of high-risk pre gnancy, unspecified trimester 09/01/2022 01/12/2023 Last Assessment & Plan: Low risk NIPT appreciated. documented as of this encounter (statuses as of 01/31/2024) Immunizations Name Administration Dates Next Due TDAP [...] money to get more. Never true 01/26/2024 [place] Depression Scale Answer Date Recorded [place] Depression Scale Total 0 01/26/2024 The thought [...] Telephone Encounter - Triny Olsen OSA - 01/31/2024 7:05 AM EDT multiple unsuccessful attempts to contact pt, sent letter * Telephone Encounter - Misti Gupta OSA - 01/28/2024 8:37 AM EST Called patient, no answer, phone was silent than it rang two times and than was silent again. Unable to leave a VM * Telephone Encounter - Triny Olsen OSA - 01/26/2024 1:50 PM EST Called patient, no answer, could not leave voicemail. Sent MyG message. * Telephone Encounter - Uzma Veloz CCMA - 01/26/2024 1:30 PM EST Estimated Date of Delivery: 05/06/24 Please schedule for 45 MINUTE CONSULT SIMPLE MEDICAL WITH AIRPLANE PILOT SUPERVISOR, in time frame of next available or atpatient's earliest convenience at location [facility] with the indication of late to care, subutex, adderral use, SIP. Please schedule anatomy within next 2-3 weeks. Referring Provider: Donna Zhang PA-C documented in this encounter Plan of Treatment Upcoming Encounters Date Type Department Care Team (Late st Contact Info) Description 02/10/2024 12:20 PM EDT Laboratory Laboratory, [facility] [place] [id number] [facility] [place] [address] 02/10/2024 12:45 PM EDT Imaging Radiology [facility] 2nd [facility] [place] [address] [place] [address] 02/10/2024 1:30 PM EDT Office Visit Gynecology/Obstetrics [facility] [address] [place] [address] Jamilah Fong CRNP [address] [place] [address] Health Maintenance Due Date Last Done Comments [...]
--- OUTSIDE RECORDS SUMMARY | 2024-05-08 08:09 | External Medical Summary ---
Author Name Unknown Address Unknown Organization K01:[facility] [place] [address] [place] [address] Laboratory Report Ordering Provider Test Date Status JESUS LÓPEZ 01/26/2024 11:21:00 Final Observation Date Value Abnormality Reference (Units ) Status Chlamydia trachomatis rRNA [Presence] in Specimen by VICK with probe detection 01/26/2024 11:21:00 Negative Negative Final No Chlamydia trachomatis det ected by evaporator helper-mediated nucleic acid amplification. Neisseria gonorrhoeae rRNA [ Presence] in Specimen by VICK with probe detection 01/26/2024 11:21:00 Negative Negative Final No Neisseria gonorrhoeae det ected by evaporator helper-mediated nucleic acid amplification. Performing Location [facility] [address] [place] [address]
--- OUTSIDE RECORDS SUMMARY | 2024-05-08 08:09 | External Medical Summary | Summary of Care ---
Author Name Unknown Organization [facility] Address [address] [place] [address] Phone [phone] Care Team Providers Care Polyethylene Combiner Name Role Phone Unavailable Primary Care Provider Unavailabl e Reason for Visit * Reason Onset Date Comments Test Results 01/06/2024 Encounter Details Date Type Department Care Team (Late st Contact Info) Description 01/06/2024 Telephone Gynecology/Obstetrics [facility] [address] [place] [address] Genaro Melissa MD [address] [facility] [place] [address] Test Results Allergies No known active allergiesdocumented [...] by subutex maintenance, an tepartum 09/01/2022 Overview: [facility] Last Assessment & Plan: Briefly reviewed subutex risks including FGR and ANTONETTE. Cameron desires to participate in Eat, Sleep, Console if able and will evaluate distance from her home to [facility]. Also advised that she enquire at [...] money to get more. Patient declined 08/2023 [place] Depression Scale Answer Date Recorded [place] Depression Scale Total 0 05/20/2023 The thought [...] weeks. I sent a few tabs of Diana ahead of appointment. She should let us [...] Description 01/26/2024 8:15 AM EST Imaging Radiology [facility] [address] [facility] [place] [address] 01/26/2024 10:30 AM EST Office Visit Gynecology/Obstetrics [facility] [address] [facility] [place] [address] Donna Zhang PA-C [address] [place] [address] Health Maintenance Due Date Last Done Comments [...]
--- OUTSIDE RECORDS SUMMARY | 2024-05-08 08:09 | External Medical Summary | Summary of Care ---
Author Name Unknown Organization [facility] Address [address] [place] [address] Phone [phone] Care Team Providers Care Lead Systems Analyst Name Role Phone Unavailable Primary Care Provider [...] complicating , antepartum Donna Zhang PA-C [facility] [address] Referral ID Status Reason Start Date Expiration Date Visits Requested Visits Authorized [id number] Pending Review Specialty Services Required 01/26/2024 999 [...] s Duncan Murphy [address] [place] [address] Donna Zhang PA-C [address] [place] [address] High-risk in second trimester*; Late care; complicated [...] by subutex maintenance, an tepartum 09/01/2022 Overview: [facility] Last Assessment & Plan: Briefly reviewed subutex risks including FGR and ANTONETTE. Cameron desires to participate in Eat, Sleep, Console if able and will evaluate distance from her home to [facility]. 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 Never true 01/26/2024 [place] Depression Scale Answer Date Recorded [place] Depression Scale Total 0 01/26/2024 The thought [...] in this encounter Progress Notes * Donna Zhnag PA-C - 01/26/2024 10:18 AM EST CC: [...] with patient. Last pap smear 2021 NILM/-HPV [place] Depression Scale: No data recorded [place] suicide question and score: Score of 3 [...] Procedure Laterality Date DENTAL SURGERY PROCEDURE NEC IN [place] INCOMPLETE ANY TRIMESTER SURGICAL Current Outpatient [...] depression, SI/HI PHYSICAL EXAM: please see physical Prosthetic Assistant Documentation Provider requested monument erector. Name of monument erector: JAYESH White +FHT by ultrasound ASSESSMENT/PLAN: High-risk [...] Description 02/10/2024 12:20 PM EDT Laboratory Laboratory, [facility] [address] [place] [id number] [facility] [address] [place] [address] 02/10/2024 12:45 PM EDT Imaging Radiology [facility] 2nd [facility] [place] [address] [place] [address] 02/10/2024 1:30 PM EDT Office Visit Gynecology/Obstetrics [facility] [place] [address] Jamilah Fong CRNP [address] [place] [address] Pending Results Name Type Priority Associated Diagnoses Date /Time CULTURE, URINE, QUANTITATIVE Lab Routine High-risk in second trimester 01/26/2024 11:21 AM EST CHLAMYDIA TRACHOMATIS AND NEISSERIA GONORRHOEAE, AMPLIFIED PROBE Lab Routine High-risk in second trimester 01/26/2024 11:21 AM EST Scheduled Orders Name Type Priority Associated Diagnoses Orde r Schedule TYPE AND SCREEN Lab Routine High-risk in second trimester Expected: 01/26/2024 (Approximate), Expires: 02/25/2025 RUBELLA IGG ANTIBODY Lab Routine High-risk in second trimester Expected: 01/26/2024 (Approximate), Expires: 01/25/2025 HEPATITIS B SURFACE ANTIGEN Lab Routine High-risk in second trimester Expected: 01/26/2024 (Approximate), Expires: 01/25/2025 HIV ANTIGEN & ANTIBODY SCREEN W/ CONFIRMATION Lab Routine High-risk in second trimester Expected: 01/26/2024 (Approximate), Expires: 01/25/2025 CBC WITH WBC DIFFERENTIAL AND ANEMIA REFLEX [...] second trimester Expected: 02/09/2024 (Approximate), Expires: 01/25/2025 US PREG LIMITED 1 OR MORE FETUSES [...] Not on filedocumented as of this encounter Procedures Procedure Name Priority Date/Time Associated Diagnosis Comments URINALYSIS, POINT OF CARE (ENTER/EDIT) Routine 01/26/2024 High-risk in second trimester documented in this encounter Results * URINALYSIS, POINT OF CARE (ENTER/EDIT) (01/26/2024) Color, Urine Yellow Yellow or Light Yellow Clarity, Urine Clear Clear Glucose, Urine Negative Negative mg/dL Bilirubin, Urine Negative Negative Ketone, Urine Negative Negative mg/dL Specific [place], Urine 1.015 1.003 - 1.030 Blood, Urine Negative Negative pH, Urine 8.5 5.0 - 7.5 units Protein, Urine Negative Negative mg/dL Urobilinogen, Urine 0.2 0.2 - 1.0 mg/dL Nitrite, Urine Negative Negative Esterase, Urine Negative Negative Urine 01/26/2024 Donna Zhang PA-C LAB POINT OF CARE [facility] ENTER/EDIT ORDERABLES documented in this encounter Visit Diagnoses Diagnosis High-risk in [...]
--- OUTSIDE RECORDS SUMMARY | 2024-05-08 08:09 | External Medical Summary ---
Author Name Unknown Address Unknown Organization K01:[facility] [place] [place] [address] [place] [id number] Laboratory Report Ordering Provider Test Date Status JESUS LÓPEZ 01/26/2024 11:21:00 Final Observation Date Value Abnormality Reference (Units) Status Bacteria identified in Specimen by Culture 01/26/2024 11:21:00 No significant growth Final Test: Culture, Urine, Quanti tative
Specimen Source: Urine, Clean Catch
Specimen Type: Urine
Specimen Date: 01/26/2024 11:21 AM
Result Date: 01/27/2024 12:27 PM
Result Status: Final result
Resulting Lab: [facility] [place]
[address]
[place] [address]

CULTURE

No significant growth

null Performing Location [facility] [place] [address] [facility] [address]
--- OUTSIDE RECORDS SUMMARY | 2024-05-08 08:09 | External Medical Summary | Summary of Care ---
Author Name Unknown Organization [facility] Address [address] [place] [address] Phone [phone] Care Team Providers Care Shipping And Receiving Assistant Name Role Phone Unavailable Primary Care Provider Unavailabl e Reason for Visit * Reason Onset Date Comments Referral 01/26/2024 Encounter Details Date Type Department Care Team (Late st Contact Info) Description 01/26/2024 Telephone Quill Buncher And Sorter Obstetrics Maternal Medicine, [place] [address] [place], [place] [phone] [place], Nurse Quill Buncher And Sorter [facility] [address] [place], [place] [phone] Referral Allergies No known active allergiesdocumented as of this encounter (statuses as of 01/28/2024) Medications Medication Sig Dispensed Refills Start Date [...] as of this encounter (statuses as of 01/28/2024) Active Problems Problem Noted Date Diagnosed Date [...] will evaluate distance from her home to [facility]. 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 Tobacco use complicating 09/01/2022 Estimated Date of Delivery Comme nts Yes 05/06/2024 Based on Ultraso und documented as of this encounter (statuses as of 01/28/2024) Resolved Problems Problem Noted Date Diagnosed Date Resolved Date Supervision of high-risk pre gnancy, unspecified trimester 09/01/2022 01/12/2023 Last Assessment & Plan: Low risk NIPT appreciated. documented as of this encounter (statuses as of 01/28/2024) Immunizations Name Administration Dates Next Due TDAP [...] money to get more. Never true 01/26/2024 [place] Depression Scale Answer Date Recorded [place] Depression Scale Total 0 01/26/2024 The thought [...] encounter Miscellaneous Notes * Telephone Encounter - Misti Gupta OSA - 01/28/2024 8:37 AM EST Called patient, no answer, phone was silent than it rang two times and than was silent again. Unable to leave a VM * Telephone Encounter - Triny Olsen OSA - 01/26/2024 1:50 PM EST Called patient, no answer, could not leave voicemail. Sent [employer] message. * Telephone Encounter - Uzma Veloz CCMA - 01/26/2024 1:30 PM EST Estimated Date of Delivery: 05/06/24 Please schedule for 45 MINUTE CONSULT SIMPLE MEDICAL WITH RESIDENT IN DIAGNOSTIC RADIOLOGY, in time frame of next available or atpatient's earliest convenience at location [facility] with the indication of late to care, subutex, adderral use, SIP. Please schedule anatomy within next 2-3 weeks. Referring Provider: Donna Zhang PA-C documented in this encounter Plan of Treatment Upcoming Encounters Date Type Department Care Team (Late st Contact Info) Description 02/10/2024 12:20 PM EDT Laboratory Laboratory, [facility] [place] [phone] [facility] [place] [address] 02/10/2024 12:45 PM EDT Imaging Radiology [facility] 2nd Floor, [place] [facility] [place] [address] 02/10/2024 1:30 PM EDT Office Visit Gynecology/Obstetrics [facility] [place] [address] Jamilah Fong CRNP [address] [place] [address] Health Maintenance Due Date Last Done Comments [...]
--- OUTSIDE RECORDS SUMMARY | 2024-05-08 08:09 | External Medical Summary | Summary of Care ---
Author Name Unknown Organization [facility] Address [address] [place] [address] Phone [phone] Care Team Providers Care Magnetic Testing Technician Name Role Phone Unavailable Primary Care Provider [...] complicating , antepartum Donna Zhang [facility] [address] Referral ID Status Reason Start Date Expiration Date Visits Requested Visits Authorized [id number] Pending Review Specialty Services Required 01/26/2024 999 [...] s Duncan Murphy [address] [place] [address] Donna Zhang PA-C [address] [place] [address] High-risk in second trimester*; Late care; complicated [...] maintenance, an tepartum 09/01/2022 Overview: [facility] Family Medicine Last Assessment & Plan: Briefly reviewed subutex risks including FGR and ANTONETTE. Cameron desires to participate in Eat, Sleep, Console if able and will evaluate distance from her home to [facility]. 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 Never true 01/26/2024 [place] Depression Scale Answer Date Recorded [place] Depression Scale Total 0 01/26/2024 The [...] with patient. Last pap smear 2021 NILM/-HPV [place] Depression Scale: No data recorded [place] suicide question and score: Score of 3 [...] Procedure Laterality Date DENTAL SURGERY PROCEDURE NEC NM TX INCOMPLETE ANY TRIMESTER SURGICAL Current Outpatient [...] depression, SI/HI PHYSICAL EXAM: please see physical Rock Picker Documentation Provider requested relationship executive. Name of relationship executive: JAYESH White +FHT by ultrasound ASSESSMENT/PLAN: High-risk [...] Description 02/10/2024 12:20 PM EDT Laboratory Laboratory, [facility] [address] [place] [id number] [facility] [address] [place] [address] 02/10/2024 12:45 PM EDT Imaging Radiology [facility] 2nd [facility] [place] [address] [place] [address] 02/10/2024 1:30 PM EDT Office Visit Gynecology/Obstetrics [facility] [place] [address] Jamilah Fong CRNP [address] [place] [address] Pending Results Name Type Priority Associated Diagnoses [...]
--- OUTSIDE RECORDS SUMMARY | 2024-05-08 08:09 | External Medical Summary | Summary of Care ---
Author Name Unknown Organization [facility] Address [address] [place] [address] Phone [phone] Care Team Providers Care Pressfitter Name Role Phone Unavailable Primary Care Provider [...] complicating , antepartum Donna Zhang PA-C [facility] [address] Referral ID Status Reason Start Date Expiration Date Visits Requested Visits Authorized [id number] Pending Review Specialty Services Required 01/26/2024 999 [...] s Duncan Murphy [address] [place] [address] Donna Zhang PA-C [address] [place] [address] High-risk in second trimester*; Late care; complicated [...] by subutex maintenance, an tepartum 09/01/2022 Overview: [facility] Family Medicine Last Assessment & Plan: Briefly reviewed subutex risks including FGR and ANTONETTE. Cameron desires to participate in Eat, Sleep, Console if able and will evaluate distance from her home to [facility]. 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 Never true 01/26/2024 [place] Depression Scale Answer Date Recorded [place] Depression Scale Total 0 01/26/2024 The thought [...] with patient. Last pap smear 2021 NILM/-HPV [place] Depression Scale: No data recorded [place] suicide question and score: Score of 3 [...] Procedure Laterality Date DENTAL SURGERY PROCEDURE NEC DC TX INCOMPLETE ANY TRIMESTER SURGICAL Current Outpatient [...] depression, SI/HI PHYSICAL EXAM: please see physical Plumbing Designer Documentation Provider requested pastry cook apprentice. Name of pastry cook apprentice: JAYESH White +FHT by ultrasound ASSESSMENT/PLAN: High-risk [...] Description 02/10/2024 12:20 PM EDT Laboratory Laboratory, [facility] [address] [place] [id number] [facility] [address] [place] [address] 02/10/2024 12:45 PM EDT Imaging Radiology [facility] 2nd [facility] [address] [place] [address] 02/10/2024 1:30 PM EDT Office Visit Gynecology/Obstetrics [facility] [place] [address] Jamilah Fong CRNP [address] [place] [address] Scheduled Orders Name Type Priority Associated Diagnoses [...]
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
--- OUTSIDE RECORDS SUMMARY | 2024-05-08 08:10 | External Medical Summary | Summary of Care ---
Author Name Unknown Organization [facility] Address [address] [place] [address] Phone [phone] Care Team Providers Care Peer Tutor Name Role Phone Unavailable Primary Care Provider Unavailabl e Encounter Details Date Type Department Care Team (Late st Contact Info) Description 01/12/2024 Telephone Gynecology/Obstetrics [facility] [address] [place] [address] Genaro Melissa MD [address] [place] [address] Allergies No known active allergiesdocumented as of [...] by subutex maintenance, an tepartum 09/01/2022 Overview: [facility] Family Medicine Last Assessment & Plan: Briefly reviewed subutex risks including FGR and ANTONETTE. Cameron desires to participate in Eat, Sleep, Console if able and will evaluate distance from her home to [facility]. Also advised that she enquire at the [...] money to get more. Patient declined 08/2023 [place] Depression Scale Answer Date Recorded [place] Depression Scale Total 0 05/20/2023 The thought [...] pt back. Pt can be reached at [phone] * Telephone Encounter - Radha Blake RN [...] EST Office Visit Gynecology/Obstetrics Duncan Murphy [address] [place] [address] Donna Zhang PA-C [address] [place] [address] Health Maintenance Due Date Last Done Comments [...]
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
--- OUTSIDE RECORDS SUMMARY | 2024-05-08 08:10 | External Medical Summary ---
Author Name Unknown Address Unknown Organization K01:[facility] [address] [facility] [address] Laboratory Report Ordering Provider Test Date Status BESSMAGNOLIADULCE MARIA ANA 01/03/2024 14:48:25 Final hCG can serve as a screening assay for . However, early may not give a positive hCG test result. In addition, some non- women may have a hCG result slightly higher than the reference limit. Careful interpretation of the hCG with clinical history is required to determine whether the patient may be . Observation Date Value Abnormality Reference (Units ) Status Choriogonadotropin.in tact+Beta subunit [Units/volume] in Serum or Plasma 01/03/2024 14:48:25 [address].0 Above high normal <=1.0 (mIU/mL) Final Performing Location [facility] [address] [facility] [address]
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
--- OUTSIDE RECORDS SUMMARY | 2024-05-08 08:10 | External Medical Summary | Summary of Care ---
Author Name Unknown Organization [facility] Address [address] [place] [address] Phone [phone] Care Team Providers Care Railroad Commissioner Name Role Phone Unavailable Primary Care Provider Unavailabl e Encounter Details Date Type Department Care Team (Late st Contact Info) Description 01/06/2024 Telephone Gynecology/Obstetrics [facility] [address] [place] [address] Genaro Melissa MD [address] [place] [address] Allergies No known active allergiesdocumented as of [...] by subutex maintenance, an tepartum 09/01/2022 Overview: [facility] Family Medicine Last Assessment & Plan: Briefly reviewed subutex risks including FGR and ANTONETTE. Cameron desires to participate in Eat, Sleep, Console if able and will evaluate distance from her home to [facility]. 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 Patient declined 08/2023 [place] Depression Scale Answer Date Recorded [place] Depression Scale Total 0 05/20/2023 The thought [...] Care Team (Late st Contact Info) Description 02/02/2024 10:00 AM EDT Office Visit Gynecology/Obstetrics [address] [place] [address] Paz Michelle PA-C [address] [place] [address] [place] Nurse Healthy [address] [place] [address] Health Maintenance Due Date Last Done Comments [...]
--- OUTSIDE RECORDS SUMMARY | 2024-05-08 08:10 | External Medical Summary | Summary of Care ---
Author Name Unknown Organization [facility] Address [address] [place] [address] Phone [phone] Care Team Providers Care Shop Coordinator Name Role Phone Unavailable Primary Care Provider Unavailabl e Encounter Details Date Type Department Care Team (Late st Contact Info) Description 01/06/2024 Telephone Gynecology/Obstetrics [facility] [address] [place] [address] Genaro Melissa MD [address] [facility] [place] [address] Allergies No known active allergiesdocumented as of [...] by subutex maintenance, an tepartum 09/01/2022 Overview: [facility] Family Medicine Last Assessment & Plan: Briefly reviewed subutex risks including FGR and ANTONETTE. Cameron desires to participate in Eat, Sleep, Console if able and will evaluate distance from her home to [facility]. Also advised that she [...] money to get more. Patient declined 08/2023 [place] Depression Scale Answer Date Recorded [place] Depression Scale Total 0 05/20/2023 The thought [...] 02/02/2024 10:00 AM EDT Office Visit Gynecology/Obstetrics [address] [place] [address] Paz Michelle PA-C [address] [place] [address] [facility] [address] [place] [address] Health Maintenance Due Date Last Done Comments [...]
--- OUTSIDE RECORDS SUMMARY | 2024-05-08 08:10 | External Medical Summary | Summary of Care ---
Author Name Unknown Organization [facility] Address [address] [place] [address] Phone [phone] Care Team Providers Care Hull Line Crew Member Name Role Phone Unavailable Primary Care Provider Unavailabl e Encounter Details Date Type Department Care Team (Late st Contact Info) Description 01/12/2024 Telephone Gynecology/Obstetrics [facility] [address] [place] [address] Genaro Melissa MD [address] [facility] [place] [address] Allergies No known active allergiesdocumented as of [...] by subutex maintenance, an tepartum 09/01/2022 Overview: [facility] Family Medicine Last Assessment & Plan: Briefly reviewed subutex risks including FGR and ANTONETTE. Cameron desires to participate in Eat, Sleep, Console if able and will evaluate distance from her home to [facility]. Also advised that she enquire at [...] money to get more. Patient declined 08/2023 [place] Depression Scale Answer Date Recorded [place] Depression Scale Total 0 05/20/2023 The thought [...] pt back. Pt can be reached at [phone] * Telephone Encounter - Radha Blake RN [...] Duncan Murphy [address] [place] [address] Donna Zhang PA-C [address] [place] [address] Health Maintenance Due Date Last Done Comments [...]
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
--- OUTSIDE RECORDS SUMMARY | 2024-05-08 08:10 | External Medical Summary | Summary of Care ---
Author Name Unknown Organization [facility] Address [address] [place] [address] Phone [phone] Care Team Providers Care Floor Waxer Name Role Phone Unavailable Primary Care Provider Unavailabl e Reason for Visit * Reason Comments Outpatient Testing Encounter Details Date Type Department Care Team (Late st Contact Info) Description 01/03/2024 1:30 PM EST Laboratory Laboratory, [facility] [address] [place] [id number] [facility] [address] [place] [address] Amenorrhea, primary Allergies No known active allergiesdocumented as of this encounter (statuses as of 01/03/2024) Medications Medication Sig Dispensed Refills Start Date [...] as of this encounter (statuses as of 01/03/2024) Active Problems Problem Noted Date Diagnosed Date [...] will evaluate distance from her home to [facility]. 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 Tobacco use complicating 09/01/2022 documented as of this encounter (statuses as of 01/03/2024) Resolved Problems Problem Noted Date Diagnosed Date Resolved Date Supervision of high-risk pre gnancy, unspecified trimester 09/01/2022 01/12/2023 Last Assessment & Plan: Low risk NIPT appreciated. documented as of this encounter (statuses as of 01/03/2024) Immunizations Name Administration Dates Next Due TDAP [...] money to get more. Patient refused 08/2023 [place] Depression Scale Answer Date Recorded [place] Depression Scale Total 0 05/20/2023 The thought [...] Name Type Priority Associated Diagnoses Date /Time BETA-HCG, QUANTITATIVE Lab Routine Amenorrhea, primary 01/03/2024 2:48 PM EST Health Maintenance Due Date Last Done Comments [...] of this encounter Visit Diagnoses Diagnosis Amenorrhea, primary Absence of menstruation documented in this encounter
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
--- OUTSIDE RECORDS SUMMARY | 2024-05-08 08:10 | External Medical Summary | Summary of Care ---
Author Name Unknown Organization [facility] Address [address] [place] [address] Phone [phone] Care Team Providers Care Sports Management Professor Name Role Phone Unavailable Primary Care Provider Unavailabl e Encounter Details Date Type Department Care Team (Late st Contact Info) Description 01/06/2024 Telephone Gynecology/Obstetrics [facility] [address] [place] [address] Genaro Melissa MD [address] [facility] [place] [address] Allergies No known active allergiesdocumented as of [...] by subutex maintenance, an tepartum 09/01/2022 Overview: [facility] Family Medicine Last Assessment & Plan: Briefly reviewed subutex risks including FGR and ANTONETTE. Cameron desires to participate in Eat, Sleep, Console if able and will evaluate distance from her home to [facility]. Also advised that she enquire at the OB office whether something similar is available at [facility] where she initially intended to [...] money to get more. Patient declined 08/2023 [place] Depression Scale Answer Date Recorded [place] Depression Scale Total 0 05/20/2023 The thought [...] 02/02/2024 10:00 AM EDT Office Visit Gynecology/Obstetrics [address] [place] [address] Paz Michelle PA-C [address] [place] [address] [facility] [address] [place] [address] Health Maintenance Due Date Last Done Comments [...]
--- OUTSIDE RECORDS SUMMARY | 2024-05-08 08:10 | External Medical Summary | Summary of Care ---
Author Name Unknown Organization [facility] Address [address] [place] [address] Phone [phone] Care Team Providers Care Administrative Manager Name Role Phone Unavailable Primary Care Provider Unavailabl e Encounter Details Date Type Department Care Team (Late st Contact Info) Description 01/06/2024 Telephone Gynecology/Obstetrics [facility] [address] [place] [address] Genaro Melissa MD [address] [place] [address] Allergies No known active allergiesdocumented as of [...] by subutex maintenance, an tepartum 09/01/2022 Overview: [facility] Family Medicine Last Assessment & Plan: Briefly reviewed subutex risks including FGR and ANTONETTE. Cameron desires to participate in Eat, Sleep, Console if able and will evaluate distance from her home to [facility]. 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 Patient refused 08/2023 [place] Depression Scale Answer Date Recorded [place] Depression Scale Total 0 05/20/2023 The thought [...] 02/02/2024 10:00 AM EDT Office Visit Gynecology/Obstetrics [facility] [address] [place] [address] Paz Michelle PA-C [address] [address] [facility] [address] [facility] [place] [phone] Health Maintenance Due Date Last Done Comments [...]
[2024-05-08] MEDS: LACTATED RINGER'S 1,000 ML IV PRN (08:30)
[2024-05-08] MEDS ORDERED: OXYTOCIN 30 UNITS/NSS 30 UNITS/500 ML BAG IV PRN ×2 (08:39→15:50)
[2024-05-08] MEDS ORDERED: LIDOCAINE 1% LOCAL 20 ML VIAL INFIL PRN (08:39)
[2024-05-08 09:44] LABS: Hematocrit (blood only) 34.2 % (37.0-47.0); Mean Corpuscular Hemoglobin 26.9 pg (25.0-34.0); Mean Corpuscular Hgb Conc 32.2 g/dL (32.0-36.0); Mean Corpuscular Volume 83.6 fL (80.0-100.0); Mean Platelet Volume 11.8 fL (9.4-12.4); Platelet Count 274 K/uL (130-400); RDW Coefficient of Variation 14.5 % (11.5-14.5); RDW Standard Deviation 41.8 fL (36.4-46.3); Red Blood Count 4.09 M/uL (4.20-5.40); White Blood Count 15.07 K/ul (4.8-10.8)
[2024-05-08] MEDS: OXYTOCIN 30 UNITS/NSS 30 UNITS/500 ML BAG IV PRN (09:47)
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
[2024-05-08] MEDS: ONDANSETRON INJ 2 MG/ML 2 ML VIAL IV PRN (10:35)
[2024-05-08] MEDS: buprenorphine HCL 2 MG SUBL SL SCH (11:57)
[2024-05-08] MEDS: NICOTINE 14 MG/24 HR PATCH TD SCH (11:57)
[2024-05-08] MEDS ORDERED: ONDANSETRON INJ 2 MG/ML 2 ML VIAL IV PRN (12:21)
[2024-05-08] MEDS ORDERED: SODIUM CHLORIDE 0.9% PF INJ 10 ML VIAL EPI PRN (12:21)
[2024-05-08] MEDS ORDERED: diphenhydrAMINE 50 MG/ML VIAL IV PRN (12:21)
[2024-05-08] MEDS ORDERED: fentANYL 2 MCG/ML BUPIVacaine 0.125%-NSS 100ML BAG EPI PRN (12:21)
[2024-05-08] MEDS ORDERED: ePHEDrine sulfate 50 MG/ML AMP IV PRN (12:21)
[2024-05-08] MEDS ORDERED: NALBUPHINE HCL 5 MG in SYRINGE 0 ML IV PRN (12:21)
[2024-05-08] MEDS ORDERED: fentaNYL citrate PF 100 MCG/2 ML VIAL EPI PRN (12:21)
[2024-05-08] MEDS ORDERED: BUPIVACAINE 0.25% PF 30 ML VIAL EPI PRN (12:21)
[2024-05-08] MEDS ORDERED: NALOXONE HCL 0.4 MG/1 ML VIAL/CARP IV PRN (12:21)
[2024-05-08] MEDS ORDERED: NALOXONE HCL 1 MG in SODIUM CHLORIDE 0.9% 1,000 ML IV PRN (12:21)
[2024-05-08] MEDS ORDERED: LIDOCAINE 2% MPF LOCAL 5 ML VIAL EPI PRN (12:21)
[2024-05-08] MEDS ORDERED: ROPIVACAINE 0.5% PF 5 MG/ML 20 ML VIAL EPI PRN (12:21)
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
[2024-05-08] MEDS: fentANYL 2 MCG/ML BUPIVacaine 0.125%-NSS 100ML BAG ONE (12:49)
[2024-05-08] MEDS: LIDOCAINE 2%/EPINEPHRINE 1:200,000 20 ML PF ONE (12:52)
[2024-05-08] MEDS: BUPIVACAINE 0.25% PF 30 ML VIAL ONE (12:52)
[2024-05-08] MEDS: fentaNYL citrate PF 100 MCG/2 ML VIAL ONE (12:52)
[2024-05-08] MEDS: SODIUM CHLORIDE 0.9% PF INJ 10 ML VIAL EPI STA (12:55)
[2024-05-08] MEDS: BUPIVACAINE 0.25% PF 30 ML VIAL EPI STA (12:55)
[2024-05-08] MEDS: LIDOCAINE 2%/EPINEPHRINE 1:200,000 20 ML PF EPI STA (12:56)
[2024-05-08] MEDS: fentaNYL citrate PF 100 MCG/2 ML VIAL EPI STA (12:56)
--- NOTE | 2024-05-08 13:11 | Labor Progress Brief Note ---
Date of Service May 08, 2024 Assessment & Plan Admission and Anticipated Discharge Date Admission Date: May 08, 2024 Physical Exam Genitourinary: Manual OB Exam: + cervical dilation 5 cm, + cervical effacement 60%, + station -2 and + amniotic fluid clear OB Exam Monitor Tracing: + external FHT monitor used, + external uterine monitor used, + category I and + normal FHT variability AROM with Amni-hook clear fluid Results & Data Vital Signs (Past 12 Hours) Vital Signs Temp Pulse Resp BP Pulse Ox 05/08/24 13:08 101 H 98 05/08/24 13:05 102 H 128/64 05/08/24 13:03 106 H 98 05/08/24 13:00 109 H 116/72 05/08/24 12:58 81 99 05/08/24 12:53 94 H 109/60 98 05/08/24 12:50 92 H 110/61 05/08/24 12:48 86 111/60 100 05/08/24 12:44 94 H 117/62 05/08/24 12:43 90 05/08/24 12:43 102 H 05/08/24 12:43 82 116/57 L 100 05/08/24 12:41 77 109/62 05/08/24 12:39 77 109/56 L 05/08/24 12:38 80 100 05/08/24 12:31 79 93 05/08/24 12:03 67 103/62 05/08/24 11:48 76 103/62 05/08/24 11:32 80 108/72 05/08/24 11:00 75 94/50 L 05/08/24 10:32 86 117/66 05/08/24 09:47 81 108/69 05/08/24 09:29 36.9 C 16 05/08/24 09:09 78 100 05/08/24 09:04 88 100 05/08/24 09:03 97 H 89 L 05/08/24 08:59 100 H 100 05/08/24 08:54 85 99 05/08/24 08:49 82 98 05/08/24 08:44 84 99 05/08/24 08:39 97 H 99 05/08/24 08:34 85 98 05/08/24 08:17 36.9 C 91 H 16 115/76 97 05/08/24 08:11 91 H 115/76
[2024-05-08] MEDS: ePHEDrine sulfate 50 MG/ML AMP ONE (15:28)
[2024-05-08] MEDS: SODIUM CHLORIDE 0.9% PF INJ 10 ML VIAL ONE (15:28)
[2024-05-08] MEDS ORDERED: BENZOCAINE 20% SPRY 85 APPLN/85 GM CAN EXT PRN (15:50)
[2024-05-08] MEDS ORDERED: HYDROCORTISONE ACETATE 25 MG SUPP PR PRN (15:50)
[2024-05-08] MEDS ORDERED: bisacodyL 10 MG SUPP PR PRN (15:50)
--- NOTE | 2024-05-08 15:54 | Delivery Summary ---
Vaginal Delivery Summary Date of Service May 08, 2024 Vaginal Delivery Summary live female GAVIN over intact perineum with delayed cord clamping and Apgars 8/9 weight pending. Cord blood obtained followed by spontaneous delivery of intact placenta. No tears. QBL 75 ml. Final sponge and instrument count are correct. Mom and baby stable.
[2024-05-08] MEDS ORDERED: buprenorphine HCL 2 MG SUBL SL SCH (16:00)
--- NOTE | 2024-05-08 16:50 | Anesthesia Procedure Note ---
Date of Service May 08, 2024 Anesthesia Post Epidural Note Vital Signs Vital Signs: Temp Pulse Resp BP Pulse Ox 36.6 C 67 20 109/80 86 L 05/08/24 14:01 05/08/24 16:35 05/08/24 16:35 05/08/24 16:35 05/08/24 15:40 Pain Intensity Lower Back: Pain Intensity: 5 Notes Mental Status: alert / awake / arousable and participated in evaluation Patient Amnestic to Procedure: No Nausea / Vomiting: adequately controlled Pain: adequately controlled Airway Patency, RR, SpO2: stable & adequate BP & HR: stable & adequate Hydration State: stable & adequate Neuraxial Anesthesia: was administered and sensory block is resolving Anesthetic Complications: no major complications apparent and Pt Satisfied with anesthetic care Epidural: Removed without complications and With tip intact
[2024-05-08] MEDS: IBUPROFEN 600 MG TAB PO PRN (17:57)
[2024-05-08] MEDS: DOCUSATE SODIUM 100 MG CAP PO SCH (22:22)
[2024-05-09] MEDS: ACETAMINOPHEN 325 MG TAB PO PRN (02:27)
[2024-05-09 07:00] LABS: Hematocrit (blood only) 33.3 % (37.0-47.0); Hemoglobin 10.8 g/dl (12.0-16.0); Mean Corpuscular Hgb Conc 32.4 g/dL (32.0-36.0); Mean Corpuscular Volume 83.3 fL (80.0-100.0); Mean Platelet Volume 11.5 fL (9.4-12.4); Platelet Count 251 K/uL (130-400); RDW Coefficient of Variation 14.5 % (11.5-14.5); RDW Standard Deviation 41.2 fL (36.4-46.3); White Blood Count 18.35 K/ul (4.8-10.8)
[2024-05-09] MEDS: PRENATAL VITAMIN 1 TAB PO SCH ×2 (08:45→08:46)
[2024-05-09] MEDS: FERROUS SULFATE 325 MG TAB PO SCH (08:46)
--- NOTE | 2024-05-09 09:29 | Obstetrical Progress Note ---
Date of Service May 09, 2024 Assessment & Plan Admission and Anticipated Discharge Date Admission Date: May 08, 2024 Subjective Patient is seen and examined. She feels well, no complaints. Ambulating without dizziness Voiding without difficulty Tolerating regular diet with out N&V Bleeding is minimal No fever/ chills/ CP/ SOB/ N&V/ Leg pain Breast feeding without problems Vital Signs Temp Pulse Resp BP O2 Del Method 05/09/24 03:05 36.5 C 71 16 93/61 L Room Air 05/08/24 23:52 36.6 C 76 18 110/76 Room Air Lab Results 05/08/24 05/09/24 Range/Units 09:04 06:32 WBC 15.07 H 18.35 H (4.8-10.8) K/ul RBC 4.09 L 4.00 L (4.20-5.40) M/uL Hgb 11.0 L 10.8 L (12.0-16.0) g/dl Hct 34.2 L 33.3 L (37.0-47.0) % MCV 83.6 83.3 (80.0-100.0) fL MCH 26.9 27.0 (25.0-34.0) pg MCHC 32.2 32.4 (32.0-36.0) g/dL RDW Std Deviation 41.8 41.2 (36.4-46.3) fL RDW Coeff of Peggy 14.5 14.5 (11.5-14.5) % Plt Count 274 251 (130-400) K/uL MPV 11.8 11.5 (9.4-12.4) fL RPR Nonreactive (Nonreactive) PE: General: Alert, orientedx3, NAD Abd: soft, NT, fundus firm, below Umbilicus Perineum intact, Lochia rubra minimal Ext; NT, no edema AP: 34 yo s/p , ppd# 1 VSS Afebrile doing well WBCC elevated , afebrile Repeat CBC in am Continue routine care All questions were answered D/C home tomorrow Results & Data Vital Signs (Past 12 Hours) Vital Signs Temp Pulse Resp BP O2 Del Method 05/09/24 03:05 36.5 C 71 16 93/61 L Room Air 05/08/24 23:52 36.6 C 76 18 110/76 Room Air
[2024-05-09] MEDS: DIPHTHER/TETAN/PERTUS Vaccine (Tdap, Adol/Adult) 0.5mL IM ONE (11:07)
[2024-05-09] MEDS: bisacodyL 5 MG TABEC PO SCH (20:24)
[2024-05-10 09:48] LABS: Basophils # (auto) 0.05 K/uL (0.00-0.20); Basophils % (auto) 0.4 %; Eosinophils # (auto) 0.17 K/uL (0.00-0.50); Eosinophils % (auto) 1.3 %; Hematocrit (blood only) 33.8 % (37.0-47.0); Immature Granulocytes # (auto) 0.12 K/uL (0.01-0.20); Immature Granulocytes % (auto) 0.9 %; Lymphocytes # (auto) 2.34 K/uL (1.20-3.40); Mean Corpuscular Hemoglobin 27.4 pg (25.0-34.0); Mean Corpuscular Hgb Conc 32.5 g/dL (32.0-36.0); Mean Corpuscular Volume 84.1 fL (80.0-100.0); Mean Platelet Volume 11.3 fL (9.4-12.4); Monocytes # (auto) 0.84 K/uL (0.11-0.59); Monocytes % (auto) 6.5 %; Neutrophils # (auto) 9.45 K/uL (1.40-6.50); Neutrophils % (auto) 72.9 %; Platelet Count 260 K/uL (130-400); RDW Coefficient of Variation 15.1 % (11.5-14.5); RDW Standard Deviation 43.5 fL (36.4-46.3); Red Blood Count 4.02 M/uL (4.20-5.40); White Blood Count 12.97 K/ul (4.8-10.8)
--- NOTE | 2024-05-10 10:03 | Obstetrical Progress Note ---
Date of Service May 10, 2024 Assessment & Plan Admission and Anticipated Discharge Date Admission Date: May 08, 2024 OB Progress Note abdomen soft and non tender no calf tenderness ambulating well vaginal bleeding scant hgb 11.0 Results & Data Vital Signs (Past 12 Hours) Vital Signs Temp Pulse Resp BP Pulse Ox O2 Del Method 05/10/24 08:55 36.4 C L 78 16 101/67 Room Air 05/10/24 00:02 36.6 C 83 20 104/69 97 Room Air
== END 2024-05-10 14:20 | disposition home or self-care (01) | DRG 807 ==
LOC: 4S1 07:56 → 4E2 18:49